=== PATIENT | female | born 1995 | race Caucasian/White ===

== ENCOUNTER 2017-12-19 19:02 | Emergency (ER) | payer OTHER, SELFPAY ==
[2017-12-19 19:03] VITALS: BP 121/77; PULSE 103; RESP 18; TEMP 36.8; O2SAT 99; BMI 22.7
--- NOTE | 2017-12-19 19:55 | RAD_ITS ---
STUDY: X-RAY - RIGHT WRIST REASON FOR EXAM: Female, 22 years old. Right wrist and elbow pain after fall. TECHNIQUE: 3 view(s) of the wrist were obtained. COMPARISON: None. FINDINGS: Normal visualized distal radius and ulna. Normal radiocarpal articulation. Normal distal radioulnar articulation. Normal carpal bones. Normal carpal articulations. Normal carpometacarpal articulation of the thumb. Normal second through fifth carpometacarpal articulations. Normal visualized metacarpal bones. The soft tissue structures are unremarkable. RAD/Wrist min 3 Views IMPRESSION: No significant abnormality identified. Electronically Signed: Vickey Hartley MD at 20:47 EDT , Service support ,
--- NOTE | 2017-12-19 19:57 | RAD_ITS ---
STUDY: X-RAY - RIGHT ELBOW REASON FOR EXAM: Female, 22 years old. Right wrist and elbow pain after fall. TECHNIQUE: 30 view(s) of the elbow. COMPARISON: None. FINDINGS: There is a nondisplaced fracture of the radial head. There is a joint effusion. The soft tissue structures are unremarkable. RAD/Elbow min 3 Views IMPRESSION: Radial head fracture with joint effusion. Electronically Signed: Vickey Hartley MD at 20:48 EDT , Service support ,
--- NOTE | 2017-12-19 22:55 | ED.DEP ---
ED Disposition - Plan for ED Patient: Chief Complaint: Upper Extremity Injury Instructions: ED Fx Radial Head Prescriptions: Hydrocodone Bitart/Apap 5-325 [[place] 5MG-325MG] 1 tablet PO Q6H PRN PRN 3 Days #10 tablet PRN Reason: Pain Referrals: Care Physician,No Primary [Primary Care Provider] - Deepak Mayer MD [STAFF PHYSICIAN] -
--- NOTE | 2017-12-19 22:56 | DCINST.ED_ITS ---
ED Disposition - Plan for ED Patient: Chief Complaint: Upper Extremity Injury Instructions: ED Fx Radial Head Prescriptions: Hydrocodone Bitart/Apap 5-325 [[place] 5MG-325MG] 1 tablet PO Q6H PRN PRN 3 Days # 10 tablet PRN Reason: Pain Referrals: Care Physician,No Primary [Primary Care Provider] - Deepak Mayer MD [STAFF PHYSICIAN] -
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
[2017-12-19] MEDS: HYDROcodone Bitartrate/Apap 5/325 Tablet PO (23:03)
[2017-12-19 23:04] VITALS: RESP 14
== END 2017-12-19 23:05 | disposition home or self-care (01) ==
PROVIDERS: Emergency Provider Emergency Medicine
DX: S52.121A Displaced fracture of head of right radius, initial encounter for closed fracture (principal); V19.9XXA Pedal cyclist (driver) (passenger) injured in unspecified traffic accident, initial encounter; Y93.9 Activity, unspecified; Y92.9 Unspecified place or not applicable
CPT/HCPCS: 29125; 73080; 73110; 99283

== ENCOUNTER → 2018-06-17 15:00 | Outpatient (CLI) | payer OTHER, SELFPAY ==
[2018-06-17 16:40] LABS: Anion Gap 6 (5-15); BUN 11 mg/dL (7-18); BUN/Creat Ratio 13.9 RATIO (10-20); Calcium,Total 8.6 mg/dL (8.5-10.1); Chloride 108 mmol/L (98-107); Creatinine, Serum 0.79 mg/dL (0.55-1.02); EST Glomerular Filtration Rate 96 mL/min (>60); Est Glom Filt Rate - Afr Amer 116 mL/min (>60); Glucose 99 mg/dL (74-106); Sodium Level 145 mmol/L (136-145); Thyroid Stim Hormone (TSH) 0.93 uIU/mL (0.358-3.74)
== END ==
DX: Z79.899 Other long term (current) drug therapy (principal)
CPT/HCPCS: 36415; 80048; 84443

== ENCOUNTER → 2018-12-09 08:39 | Outpatient (CLI) | payer OTHER, SELFPAY ==
[2018-12-09 10:14] LABS: ALB/GLOB Ratio 1.1 RATIO (0.9-2.4); AST(SGOT) 20 U/L (15-37); Alanine Aminotransfer ALT/SGPT 24 U/L (13-56); Albumin, Serum 3.8 g/dL (3.2-5.0); Alkaline Phosphatase 75 U/L (45-117); Anion Gap 8 (5-15); BUN 9 mg/dL (7-18); BUN/Creat Ratio 10.8 RATIO (10-20); Calcium,Total 9.5 mg/dL (8.5-10.1); Chloride 108 mmol/L (98-107); Creatinine, Serum 0.83 mg/dL (0.55-1.02); EST Glomerular Filtration Rate 90 mL/min (>60); Est Glom Filt Rate - Afr Amer 109 mL/min (>60); Globulin 3.5 g/dL (2.2-4.2); Glucose 60 mg/dL (74-106); Potassium 4.2 mmol/L (3.5-5.1); Protein, Total 7.3 g/dL (6.4-8.2); Sodium Level 144 mmol/L (136-145); Thyroid Stim Hormone (TSH) 1.67 uIU/mL (0.358-3.74)
== END ==
DX: Z79.899 Other long term (current) drug therapy (principal)
CPT/HCPCS: 36415; 80053; 80178; 84443

== ENCOUNTER 2019-05-23 15:30 | Emergency (ER) | payer OTHER, SELFPAY ==
[2019-05-23 15:34] VITALS: BP 132/76; PULSE 99; RESP 15; TEMP 36.4; O2SAT 99; BMI 26.3
--- NOTE | 2019-05-23 15:57 | US_ITS ---
STUDY: ULTRASOUND OF THE FEMALE PELVIS - LIMITED REASON FOR EXAM: Female, 23 years old NEW IUD WITH SPOTTING AND CRAMPING S/P TECHNIQUE: Transvaginal TECHNICAL QUALITY: Adequate. COMPARISON: None. FINDINGS: The uterus is anteverted and is in a midline position. The uterus measures 6.9 x 5.1 x 3.0 cm. Normal uterine cervix. The endometrium measures 3 mm in thickness, and is hyperechoic. There is no demonstrated endometrial mass. There is no demonstrated myometrial mass. An IUD is present appearing in adequate position The right ovary measures 2.9 x 2.5 x 1.7 cm. There is no right ovarian cyst or ovarian mass. There is no visualized right adnexal mass or complex lesion. There is normal arterial and normal venous vascularity. The left ovary measures 2.6 x 1.8 x 1.5 cm. There is no left ovarian cyst or ovarian mass. There is no visualized left adnexal mass or complex lesion. There is normal arterial and normal venous vascularity. There is no fluid in the cul-de-sac. A small amount of debris is seen in the urinary bladder. US/Transvaginal Non- IMPRESSION: IUD seen in the uterus appearing in adequate position. A small amount of debris is incidentally noted in the urinary bladder. There is no evidence of fluid in the cul-de-sac. The ovaries appear normal. Electronically Signed: Jesus Page MD at 17:31 EST , Service support ,
--- NOTE | 2019-05-23 15:59 | ED.VIS.GEN ---
History of Present Illness Chief Complaint: Female C/O Informant: Patient Onset: Days Current Severity: Mild Maximum Severity: Moderate Narrative: Patient presents with concerns for vaginal bleeding and cramping. She had an 3 weeks ago when she was approximately 7 weeks along. She had an IUD placed 1 week after her procedure. Patient states she had vaginal bleeding for about a week and a half after her procedure. This past weekend she started bleeding again. Bleeding stopped yesterday but cramping got worse. - Past Medical History (1) Bipolar disorder Status: Chronic Past Medical History - Allergies and Home Meds Allergies/Adverse Reactions: Allergies No Known Allergies Allergy (Verified 05/23/19 15:31) Primary Care Physician: Care Physician,No Primary [Primary Care Provider] - Prior records reviewed: Yes Review of Systems General: Denies: Chills, Fever Eyes: Denies: Visual changes - bilaterally ENT: Denies: Bilateral ear pain Cardiovascular: Denies: Chest pain Respiratory: Denies: Dyspnea, Cough Gastrointestinal: Reports: Abdominal pain. Denies: Nausea, Vomiting, Diarrhea Genitourinary: Denies: Dysuria Musculoskeletal: Reports: Extremity Pain Skin: Denies: Rash Neurological: Denies: Headache Allergy: Denies: Uticaria Physical Exam Vital Signs/Narrative: Vital Signs Temp Pulse Resp BP Pulse Ox 05/23/19 15:34 97.5 F L 99 15 132/76 H 99 Inital Vital Signs reviewed: Yes General: Well nourished, Well developed Head: Normocephalic ENT: Moist mucous membranes Neck: Supple Cardiovascular: Regular rate, Regular rhythm Respiratory: No distress, CTA bilaterally Abdomen: Soft, Nontender, Normal bowel sounds Extremities: Nontender Skin: Normal color Neurological: Alert, Oriented x3 Psychological: Normal affect Diagnostic/Tx/Re-eval Impressions Transvaginal US 05/23/19 15:57 IMPRESSION: IUD seen in the uterus appearing in adequate position. A small amount of debris is incidentally noted in the urinary bladder. There is no evidence of fluid in the cul-de-sac. The ovaries appear normal. Electronically Signed: Jesus Page MD at 17:31 EST , Service support , 05/23/19 15:57 Transvaginal Non- [US] Stat Laboratory Results 05/23/19 05/23/19 05/23/19 16:40 16:40 17:22 WBC 7.4 RBC 4.80 Hgb 13.3 Hct 40.7 MCV 84.8 MCH 27.7 MCHC 32.7 RDW Std Deviation 41.1 RDW Coeff of Joey 13.2 Plt Count 286 MPV 8.9 Immature Gran % (Auto) 0.100 Neut % (Auto) 65.6 Lymph % (Auto) 24.8 Roberts % (Auto) 8.8 Eos % (Auto) 0.4 Baso % (Auto) 0.3 Absolute Neuts (auto) 4.9 Absolute Lymphs (auto) 1.83 Nucleated RBC % 0 HCG, Quant 4 Urine Color Yellow Urine Clarity Cloudy Urine pH 7.0 Ur Specific [place] 1.010 Urine Protein Negative Urine Glucose (UA) Normal Urine Ketones Negative Urine Occult Blood 10 H Urine Nitrite Negative Urine Bilirubin Negative Urine Urobilinogen Normal Ur Leukocyte Esterase Negative Urine RBC 0-5 SEEN Urine WBC 0-5 SEEN Ur Squamous Epith Cells 0-5 SEEN Urine Bacteria RARE Urine Mucus 1+ - Medical Decision Making Patient was given Toradol IV. Test results are discussed with her. At this time I do not see any acute abnormalities from her recent . She be referred to Dr. Channing Nash, on-call for no doc for follow-up as needed. ED Disposition - Plan for ED Patient: Disposition: Home or Assisted Living Diagnosis: Pelvic pain Instructions: PELVIC PAIN, Unknown Cause Referrals: Preeti Win MD [STAFF PHYSICIAN] - As Needed
[2019-05-23 16:50] LABS: Absolute Lymphocyte Count 1.83 X10^3/uL (0.83-4.51); Absolute Neutrophil Count 4.9 X10^3/uL (2.0-7.7); Basophil# 0.02 X10^3/uL; Basophil% 0.3 % (0-1); Eosinophil# 0.03 X10^3/uL; Eosinophils% 0.4 % (0-5); Hematocrit 40.7 % (37-47); Hemoglobin 13.3 g/dL (12.0-15.0); Lymphocyte # 1.83 X10^3/ul (4.0); Lymphocyte % 24.8 % (19-41); Mean Corp Hgb Conc 32.7 g/dL (32-36); Mean Corpuscular Hgb 27.7 pg (27.0-32.0); Mean Corpuscular Volume 84.8 fL (81-99); Mean Platelet Vol. 8.9 fl (6.2-12.0); Monocyte# 0.65 X10^3/uL; Monocyte% 8.8 % (0-10); NRBC Flagged by Analyzer 0 % (0-5); Neutrophil # 4.85 X10^3/uL (2.7-7.7); Neutrophil % 65.6 % (47-70); Platelet Count 286 K/mm3 (150-450); RBC Distribution Width CV 13.2 % (11.6-14.6); RBC Distribution Width SD 41.1 fl (35.1-43.9); White Blood Count 7.4 K/mm3 (4.4-11.0)
[2019-05-23] MEDS: 0.9% Normal Saline 1,000 ML 1000 ML IV (16:53)
[2019-05-23] MEDS: Ketorolac 30 MG/ML Syringe IV (16:54)
[2019-05-23 17:08] LABS: hCG Titer Quant., Serum 4 mIU/mL (1-3)
[2019-05-23 17:32] LABS: Color, Urine Yellow (Yellow); Glucose, Dipstick Normal (Normal); Ketone-Dipstick Negative (Negative); Leukocyte Esterase-Dipstick Negative /ul (Negative); Nitrite-Dipstick Negative (Negative); Occult Blood-Urine 10 /ul (Negative); Protein-Dipstick Negative (Negative); Urine Bilirubin Dipstick Negative (Negative); Urine Clarity Cloudy (Clear); Urine Urobilinogen Normal (Normal)
[2019-05-23 17:49] LABS: Mucous, Urine 1+ /hpf (<or=2+)
[2019-05-23 17:51] LABS: Bacteria RARE /hpf (None Seen); Red Blood Cells-Urine 0-5 SEEN /hpf (0-5); Squamous Epithelial Cells - UA 0-5 SEEN /hpf (5-10); White Blood Cells 0-5 SEEN /hpf (0-5)
== END 2019-05-23 18:15 | disposition home or self-care (01) ==
PROVIDERS: Emergency Provider Emergency Medicine
DX: R10.2 Pelvic and perineal pain (principal); F31.9 Bipolar disorder, unspecified; Z30.431 Encounter for routine checking of intrauterine contraceptive device; Z79.899 Other long term (current) drug therapy
CPT/HCPCS: 76830; 81001; 84702; 85025; 93976; 96361; 96374; 99283; J7030; A4216

== ENCOUNTER → 2019-08-18 11:49 | Outpatient (CLI) | payer OTHER, SELFPAY ==
[2019-08-18 12:46] LABS: Absolute Lymphocyte Count 1.46 X10^3/uL (0.83-4.51); Absolute Neutrophil Count 4.3 X10^3/uL (2.0-7.7); Basophil# 0.01 X10^3/uL; Basophil% 0.2 % (0-1); Eosinophil# 0.06 X10^3/uL; Eosinophils% 0.9 % (0-5); Hematocrit 42.5 % (37-47); Hemoglobin 13.6 g/dL (12.0-15.0); Lymphocyte # 1.46 X10^3/ul (4.0); Lymphocyte % 22.4 % (19-41); Mean Corpuscular Hgb 28.3 pg (27.0-32.0); Mean Corpuscular Volume 88.4 fL (81-99); Mean Platelet Vol. 8.9 fl (6.2-12.0); Monocyte# 0.63 X10^3/uL; Monocyte% 9.7 % (0-10); NRBC Flagged by Analyzer 0 % (0-5); Neutrophil # 4.33 X10^3/uL (2.7-7.7); Neutrophil % 66.3 % (47-70); Platelet Count 364 K/mm3 (150-450); RBC Distribution Width CV 12.4 % (11.6-14.6); RBC Distribution Width SD 40.5 fl (35.1-43.9); Red Blood Count 4.81 M/mm3 (4.2-5.4); White Blood Count 6.5 K/mm3 (4.4-11.0)
[2019-08-18 13:38] LABS: ALB/GLOB Ratio 1.1 RATIO (0.9-2.4); AST(SGOT) 14 U/L (15-37); Alanine Aminotransfer ALT/SGPT 15 U/L (13-56); Albumin, Serum 4.1 g/dL (3.2-5.0); Alkaline Phosphatase 88 U/L (45-117); Anion Gap 5 (5-15); BUN 9 mg/dL (7-18); BUN/Creat Ratio 11.9 RATIO (10-20); Calcium,Total 9.3 mg/dL (8.5-10.1); Chloride 106 mmol/L (98-107); Creatinine, Serum 0.76 mg/dL (0.55-1.02); EST Glomerular Filtration Rate 100 mL/min (>60); Est Glom Filt Rate - Afr Amer 121 mL/min (>60); Globulin 3.6 g/dL (2.2-4.2); Glucose 85 mg/dL (74-106); Potassium 4.3 mmol/L (3.5-5.1); Protein, Total 7.7 g/dL (6.4-8.2); Sodium Level 137 mmol/L (136-145); Thyroid Stim Hormone (TSH) 1.17 uIU/mL (0.358-3.74)
== END ==
PROVIDERS: Referring Provider Nurse Practitioner Family; Visit Provider Nurse Practitioner Family
DX: Z79.899 Other long term (current) drug therapy (principal)
CPT/HCPCS: 36415; 80053; 80178; 84443; 85025

== ENCOUNTER → 2020-02-14 10:35 | Outpatient (CLI) | payer SELFPAY ==
[2020-02-14 10:58] LABS: Absolute Lymphocyte Count 1.54 X10^3/uL (0.83-4.51); Absolute Neutrophil Count 3.6 X10^3/uL (2.0-7.7); Basophil# 0.01 X10^3/uL; Basophil% 0.2 % (0-1); Eosinophil# 0.07 X10^3/uL; Eosinophils% 1.3 % (0-5); Hemoglobin 12.1 g/dL (12.0-15.0); Lymphocyte # 1.54 X10^3/ul (4.0); Lymphocyte % 27.6 % (19-41); Mean Corpuscular Hgb 26.9 pg (27.0-32.0); Mean Corpuscular Volume 86.9 fL (81-99); Mean Platelet Vol. 8.6 fl (6.2-12.0); Monocyte# 0.39 X10^3/uL; NRBC Flagged by Analyzer 0 % (0-5); Neutrophil # 3.56 X10^3/uL (2.7-7.7); Neutrophil % 63.7 % (47-70); Platelet Count 321 K/mm3 (150-450); RBC Distribution Width CV 13.5 % (11.6-14.6); RBC Distribution Width SD 43.4 fl (35.1-43.9); Red Blood Count 4.49 M/mm3 (4.2-5.4); White Blood Count 5.6 K/mm3 (4.4-11.0)
[2020-02-14 11:18] LABS: ALB/GLOB Ratio 1.1 RATIO (0.9-2.4); AST(SGOT) 9 U/L (15-37); Alanine Aminotransfer ALT/SGPT 15 U/L (13-56); Albumin, Serum 3.9 g/dL (3.2-5.0); Alkaline Phosphatase 82 U/L (45-117); Anion Gap 5 (5-15); BUN 7 mg/dL (7-18); Chloride 107 mmol/L (98-107); EST Glomerular Filtration Rate 109 mL/min (>60); Est Glom Filt Rate - Afr Amer 132 mL/min (>60); Free T3 2.7 pg/mL (2.18-3.98); Globulin 3.5 g/dL (2.2-4.2); Glucose 80 mg/dL (74-106); Protein, Total 7.4 g/dL (6.4-8.2); Sodium Level 139 mmol/L (136-145); T4 Free Direct 0.98 ng/dL (0.76-1.46)
[2020-02-14 11:35] LABS: Vitamin D,25 Hydroxy 9.1 ng/mL
== END ==
DX: Z79.899 Other long term (current) drug therapy (principal)
CPT/HCPCS: 36415; 80053; 80178; 82306; 84439; 84443; 84481; 85025

== ENCOUNTER → 2020-04-12 | Outpatient (CLI) | payer SELFPAY ==
[2020-04-16 03:06] LABS: Chlamydia By Nucleic Acid AMP Negative (Negative)
[2020-04-16 09:42] LABS: Gonococcus By Nucleic Acid AMP Negative (Negative)
== END | disposition home or self-care (01) ==
LOC: LABSPEC 14:59
PROVIDERS: Visit Provider Student in an Organized Health Care Education/Training Program
DX: Z11.3 Encounter for screening for infections with a predominantly sexual mode of transmission (principal)
CPT/HCPCS: 87491; 87591

== ENCOUNTER 2021-04-21 13:20 | Outpatient (CLI) | payer OTHER, SELFPAY ==
[2021-04-21 13:48] LABS: Absolute Lymphocyte Count 1.79 X10^3/uL (0.83-4.51); Basophil# 0.03 X10^3/uL; Basophil% 0.4 % (0-1); Eosinophil# 0.11 X10^3/uL; Eosinophils% 1.3 % (0-5); Hematocrit 42.3 % (37-47); Hemoglobin 13.6 g/dL (12.0-15.0); Lymphocyte # 1.79 X10^3/ul (0.83-4.51); Mean Corp Hgb Conc 32.2 g/dL (32-36); Mean Corpuscular Hgb 28.1 pg (27.0-32.0); Mean Corpuscular Volume 87.4 fL (81-99); Mean Platelet Vol. 8.3 fl (6.2-12.0); Monocyte# 0.57 X10^3/uL; Monocyte% 6.7 % (0-10); NRBC Flagged by Analyzer 0 % (0-5); Neutrophil # 5.99 X10^3/uL (2.7-7.7); Neutrophil % 70.2 % (47-70); Platelet Count 359 K/mm3 (150-450); RBC Distribution Width SD 41.2 fl (35.1-43.9); Red Blood Count 4.84 M/mm3 (4.2-5.4); White Blood Count 8.5 K/mm3 (4.4-11.0)
[2021-04-21 14:10] LABS: ALB/GLOB Ratio 1.2 RATIO (0.9-2.4); AST(SGOT) 14 U/L (15-37); Alanine Aminotransfer ALT/SGPT 18 U/L (13-56); Albumin, Serum 4.1 g/dL (3.2-5.0); Alkaline Phosphatase 81 U/L (45-117); Anion Gap 7 (5-15); BUN 11 mg/dL (7-18); BUN/Creat Ratio 14.9 RATIO (10-20); Calcium,Total 8.9 mg/dL (8.5-10.1); Chloride 105 mmol/L (98-107); Creatinine, Serum 0.74 mg/dL (0.55-1.02); EST Glomerular Filtration Rate 101 mL/min (>60); Est Glom Filt Rate - Afr Amer 122 mL/min (>60); Globulin 3.3 g/dL (2.2-4.2); Glucose 83 mg/dL (74-106); Potassium 3.6 mmol/L (3.5-5.1); Protein, Total 7.4 g/dL (6.4-8.2); Sodium Level 139 mmol/L (136-145)
== END 2021-04-21 23:59 | disposition home or self-care (01) ==
PROVIDERS: Referring Provider Nurse Practitioner Family; Visit Provider Nurse Practitioner Family
DX: Z79.899 Other long term (current) drug therapy (principal)
CPT/HCPCS: 36415; 80053; 80178; 84443; 85025

== ENCOUNTER 2021-06-27 00:46 | Emergency (ER) | payer OTHER, SELFPAY ==
[2021-06-27 00:47] VITALS: BP 155/71; PULSE 131; RESP 18; TEMP 37; O2SAT 99; BMI 28.8
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
[2021-06-27] MEDS: Lidocaine 2% /Epi 1:100 (20ml) 20 ML VIAL INFILT (02:05)
== END 2021-06-27 02:11 | disposition home or self-care (01) ==
PROVIDERS: Emergency Provider Emergency Medicine; Visit Provider Emergency Medicine
DX: S71.112A Laceration without foreign body, left thigh, initial encounter (principal); F41.9 Anxiety disorder, unspecified; F32.A Depression, unspecified; Z79.899 Other long term (current) drug therapy; W26.0XXA Contact with knife, initial encounter
CPT/HCPCS: 12002; 99283

== ENCOUNTER → 2022-01-09 | Outpatient (CLI) | payer OTHER, SELFPAY ==
[2022-01-09 09:25] LABS: Absolute Lymphocyte Count 1.88 X10^3/uL (0.83-4.51); Absolute Neutrophil Count 3.9 X10^3/uL (2.0-7.7); Basophil# 0.02 X10^3/uL; Basophil% 0.3 % (0-1); Eosinophil# 0.17 X10^3/uL; Eosinophils% 2.6 % (0-5); Hematocrit 45.2 % (37-47); Hemoglobin 14.6 g/dL (12.0-15.0); Lymphocyte # 1.88 X10^3/ul (0.83-4.51); Lymphocyte % 28.9 % (19-41); Mean Corp Hgb Conc 32.3 g/dL (32-36); Mean Corpuscular Hgb 27.2 pg (27.0-32.0); Mean Corpuscular Volume 84.3 fL (81-99); Mean Platelet Vol. 8.8 fl (6.2-12.0); Monocyte# 0.52 X10^3/uL; NRBC Flagged by Analyzer 0 % (0-5); Neutrophil % 59.9 % (47-70); Platelet Count 326 K/mm3 (150-450); RBC Distribution Width SD 43.3 fl (35.1-43.9); Red Blood Count 5.36 M/mm3 (4.2-5.4); White Blood Count 6.5 K/mm3 (4.4-11.0)
[2022-01-09 10:06] LABS: ALB/GLOB Ratio 1.2 RATIO (0.9-2.4); AST(SGOT) 11 U/L (15-37); Alanine Aminotransfer ALT/SGPT 14 U/L (13-56); Albumin, Serum 3.8 g/dL (3.2-5.0); Alkaline Phosphatase 95 U/L (45-117); Anion Gap 8 (5-15); BUN 8 mg/dL (7-18); BUN/Creat Ratio 8.6 RATIO (10-20); Calcium,Total 9.2 mg/dL (8.5-10.1); Chloride 107 mmol/L (98-107); Creatinine, Serum 0.93 mg/dL (0.55-1.02); EST Glomerular Filtration Rate 78 mL/min (>60); Est Glom Filt Rate - Afr Amer 94 mL/min (>60); Globulin 3.2 g/dL (2.2-4.2); Glucose 122 mg/dL (74-106); Potassium 4.3 mmol/L (3.5-5.1); Sodium Level 139 mmol/L (136-145); Thyroid Stim Hormone (TSH) 1.64 uIU/mL (0.358-3.74)
== END | disposition home or self-care (01) ==
LOC: LAB 09:10
PROVIDERS: Visit Provider Nurse Practitioner Family
DX: F19.10 Other psychoactive substance abuse, uncomplicated (principal); R53.83 Other fatigue; Z79.899 Other long term (current) drug therapy
CPT/HCPCS: 36415; 80053; 80178; 84443; 85025

== ENCOUNTER 2022-02-23 11:44 | Emergency (ER) | payer OTHER, SELFPAY ==
[2022-02-23 11:45] VITALS: BP 122/76; PULSE 111; RESP 18; TEMP 36.8; O2SAT 98; BMI 28.7
--- NOTE | 2022-02-23 12:09 | US_ITS ---
STUDY: ULTRASOUND OF THE FEMALE PELVIS - COMPLETE REASON FOR EXAM: Female, 26 years old. Pelvic pain, IUD LMP: Unknown. TECHNIQUE: Transvaginal TECHNICAL QUALITY: Adequate. COMPARISON: None. FINDINGS: The uterus is anteverted and is in a midline position. The uterus measures 6.8 cm x 3.3 cm x 5 cm. Normal uterine cervix. The endometrium measures 5 mm in thickness, and is hyperechoic. There is no demonstrated endometrial mass. There is no demonstrated myometrial mass. I.U.D. - The patient does have an I.U.D.. The right ovary is visualized. The right ovary measures 4.3 cm x 3 cm x 2.2 cm. There is a 2.5 cm x 2.1 cm x 1.6 cm cyst. There is no visualized right adnexal mass or complex lesion. There is normal arterial and normal venous vascularity. The left ovary is visualized. The left ovary measures 2.4 cm x 1.4 cm x 1.5 cm. There is no left ovarian cyst or ovarian mass. There is no visualized left adnexal mass or complex lesion. There is normal arterial and normal venous vascularity. There is no fluid in the cul-de-sac. US/Transvaginal Non- IMPRESSION: IUD is seen within the endometrium. 2.5 cm x 2.1 cm x 1.6 cm left ovarian cyst. Electronically Signed: Lanre Carrillo MD at 13:37 EST ,
--- NOTE | 2022-02-23 12:14 | EDS_ITS ---
HPI HPI - Female History of Present Illness Chief Complaint: Female C/O Informant: patient Narrative Narrative: Patient presents after an episode of lower pelvic pain. She states she has been having these intermittently for 2 or so years. Last time she saw her OB physician, she was told the next time she gets this pain she comes immediately to the emergency department. She has had a bowels before. She has had ultrasounds. They have never found a cause of these. She started with pain last night about 11 PM and lasted to almost 4 AM. She is not having pain now. She states when she gets this lower pelvic pain she also gets diarrhea without blood. This is typical for her. She denies any known history of lactose intolerance but did have a dairy type dessert before this. She never had nausea vomiting. No fevers. No abdominal surgeries. She is on IUD that she has had for a year and a half. They have told her that the IUD is not the cause of this. She does not feel like it is displaced. She has no bleeding. Her last menstrual cycle was back in July. She has no discharge. No urinary symptoms. Nothing consistently initiates or improves the symptoms. [facility] Medical History Anxiety Depression Home Medications hydrocodone-acetaminophen 5-325mg 5mg-325mg 1 tab PO Q6H PRN PRN Pain 3 days ##10 12/19/17 [Rx Last Taken Unknown] lamotrigine 200 mg tablet 200 mg PO DAILY 05/23/19 [History Last Taken Unknown] lithium carbonate 450 mg tablet,extended release 450 mg PO BID 05/23/19 [History Last Taken Unknown] oxcarbazepine 300 mg tablet 300 mg PO BID 05/23/19 [History Last Taken Unknown] alprazolam 0.5 mg tablet (Xanax) 0.5 mg PO DAILY PRN Anxiety 06/27/21 [History Last Taken Unknown] Allergy/AdvReac Type Severity Reaction Status Date / Time No Known Allergies Allergy Verified 02/23/22 11:47 Social History Smoking Status: Current every day smoker tobacco type: cigarettes and e- cigarettes ROS ROS ED Constitutional Constitutional ED: Denies chills or fever(s) ENT ENT ED: Denies rhinorrhea or sore throat Cardiovascular Cardiovascular: Denies chest pain or palpitations Respiratory/Chest Respiratory/Chest: Denies cough or dyspnea Gastrointestinal Gastrointestinal: Reports abdominal pain and diarrhea; Denies constipation, melena, nausea or vomiting Genitourinary Genitourinary ED: Reports other Details: See history of present illness peer ; Denies dysuria, hematuria or urinary frequency Musculoskeletal Musculoskeletal: Denies arthralgias or myalgias Integumentary Denies rash Neurologic Neurologic: Denies paresthesias or weakness Psychiatric Psychiatric: Reports anxiety and depression Endocrine Endocrinology: Denies polydipsia or polyuria Hematologic/Lymphatic Hematologic/Lymphatic: Denies lymphadenopathy EXAM Physical Exam Const Vital Signs: 02/23/22 11:45 Temperature 98.3 F Temperature Source Temporal Pulse Rate 111 H Respiratory Rate 18 Blood Pressure 122/76 H Blood Pressure Mean 91 Pulse Ox 98 Oxygen Delivery Method Room Air Positive well nourished and well developed General Appearance ED: well developed and NAD HEENT Reports moist mucous membranes Eyes EOMs intact bilaterally Neck no JVD Resp normal respiratory effort and clear to auscultation bilaterally Cardio regular rate and regular rhythm GI normal to inspection, nondistended, normoactive bowel sounds, soft to palpation, non-tender and non-distended Auscultation: normoactive bowel sounds Back/Spine no CVA tenderness Extremity normal to inspection General Extremety ED: Negative for edema or tenderness General Extremity: Negative for edema Neuro oriented x3 Psych mental status grossly normal Skin no rashes or lesions noted MDM MDM MDM Narrative Medical decision making narrative: Ultrasound showed IUD in place. She did have a small left ovarian cyst. However, I do not think this is likely the source of her recurrent pain. She is not having pain now. She has had symptoms for a year or 2. I do not think this represents torsion. Urine showed increased white cells but there was also 5-10 squamous epithelial cells. Only 1+ bacteria. Patient is not having any UTI symptoms. I will send this for culture but we mutually agreed to hold off on antibiotic treatment. We will have the patient follow-up with [facility] TECHNICIAN. She currently does not have a window shade estimator so we will give her a referral. Lab Data Attestation: I reviewed the patient's lab results. Labs: Laboratory Results - last 24 hr 02/23/22 13:52 Urine Color Straw Urine Clarity Sl. Cloudy Urine pH 8.0 Ur Specific [place] 1.010 Urine Protein Negative Urine Glucose (UA) Normal Urine Ketones Negative Urine Occult Blood Negative Urine Nitrite Negative Urine Bilirubin Negative Urine Urobilinogen Normal Ur Leukocyte Esterase 500 H Urine RBC 0 SEEN Urine WBC 25-50 SEEN Ur Squamous Epith Cells 5-10 SEEN Urine Bacteria 1+ Urine Mucus 0 SEEN Urine Test Negative Radiography Diagnostic Testing: Clinical Impression(s) from Imaging Studies Transvaginal US 02/23/22 12:09 IMPRESSION: IUD is seen within the endometrium. 2.5 cm x 2.1 cm x 1.6 cm left ovarian cyst. Electronically Signed: Lanre Carrillo MD at 13:37 EST , Discharge Plan Triage Chief Complaint: Female C/O ED Provider: Serafin Purdy Dx/Rx/DC Orders Clinical Impression: Pelvic pain Instructions: ED Pelvic Pain, Unknown Cause Prescriptions: No Action hydrocodone-acetaminophen 1 TABLET tablet 1 tab PO Q6H PRN PRN (Reason: Pain) 3 Days Qty: 10 0RF lamotrigine 200 MG tablet 200 mg PO DAILY oxcarbazepine 300 MG tablet 300 mg PO BID lithium carbonate 450 MG tablet extended release 450 mg PO BID alprazolam [Xanax] 0.5 mg Tablet 0.5 mg PO DAILY PRN (Reason: Anxiety) Primary Care Provider: Care Physician,No Primary Referrals: Kayli Winslow MD [Med Staff - Active Staff] - 3-5 Days Care Physician,No Primary [Primary Care Provider] - Disposition Disposition: Home, Self Care
--- NOTE | 2022-02-23 13:51 | CM.ED ---
SW Note Referral Source: Case Find Referral Reason: No Primary Care Physician (PCP) SW reviewed chart and noted that patient has no PCP. SW provided patient with list of [facility] and [facility] Physician List for reference. No other issues or concerns voiced at this time. SW remains available for any additional needs. Plan: Provided patient with PCP information Cristy DELUNA
[2022-02-23 13:58] LABS: Mucous, Urine 0 SEEN /hpf (<or=2+); Red Blood Cells-Urine 0 SEEN /hpf (0-5)
[2022-02-23 14:01] LABS: Color, Urine Straw (Yellow); Glucose, Dipstick Normal (Normal); Ketone-Dipstick Negative (Negative); Leukocyte Esterase-Dipstick 500 /ul (Negative); Nitrite-Dipstick Negative (Negative); Occult Blood-Urine Negative /ul (Negative); Protein-Dipstick Negative (Negative); Urine Bilirubin Dipstick Negative (Negative); Urine Clarity Sl. Cloudy (Clear); Urine Urobilinogen Normal (Normal)
[2022-02-23 14:09] LABS: Bacteria 1+ /hpf (None Seen); Internal QC Validated? YES +Cl - CLEAR BKGD; Pregnancy, Urine Negative Negative; Squamous Epithelial Cells - UA 5-10 SEEN /hpf (5-10); White Blood Cells 25-50 SEEN /hpf (0-5)
[2022-02-23 15:13] VITALS: BP 118/72; PULSE 68; RESP 17; O2SAT 98
== END 2022-02-23 15:13 | disposition home or self-care (01) ==
PROVIDERS: Emergency Provider Emergency Medicine; Visit Provider Emergency Medicine
DX: R10.2 Pelvic and perineal pain (principal); F17.290 Nicotine dependence, other tobacco product, uncomplicated
CPT/HCPCS: 76830; 81001; 81025; 93976; 99282

== ENCOUNTER 2022-06-03 09:40 | Emergency (ER) | payer OTHER, SELFPAY ==
[2022-06-03 09:43] VITALS: BP 124/76; PULSE 110; RESP 18; TEMP 37.3; O2SAT 98
[2022-06-03 09:49] VITALS: BMI 28.9
--- NOTE | 2022-06-03 09:56 | ED.RN ---
[facility] SAID TO CALL IF SW NEEDS ANY MORE INFO
[2022-06-03 10:04] VITALS: BP 120/50; PULSE 103; RESP 16; TEMP 36.8; O2SAT 97
--- NOTE | 2022-06-03 10:05 | ED.RN ---
Patient identifies as Jai. Uses the pronouns him/he.
--- NOTE | 2022-06-03 10:33 | EX.ED.VIS.PS ---
HPI HPI - Psych History of Present Illness Chief Complaint: Mental Health Detail of Chief Complaint: Depression with suicidal ideation. Informant: patient Onset/Context/Timing Onset: Days Context: Gradual Onset Timing: Continuous Current Severity: Mild Maximum Severity: Mild Associated Symptoms Associated Symptoms - Psych: Positive for Depressed, Change in sleeping and Suicidal Thoughts; Negative for Threatening, Confusion, Paranoia, Visual Hallucinations or Auditory Hallucinations Specific plan (suicidal thought): No specific plan. Narrative Narrative: 26-year-old female history of depression anxiety on lithium and Xanax. Sees a counseling center. States that she has been depressed for some time. She lives alone. Her boyfriend lives in [facility]. States that she has had more depression recently no specific cause. She has had suicidal thoughts but has not acted on them. She has used cutting in the past to relieve stress and has made multiple lacerations on left forearm but none recently. She denies any prior overdose or attempted hanging's. She does not have a specific plan at this time. Prior similar symptoms: Yes Recent Illness/Hospitalization: No PFSH PFSH Medical History Anxiety Depression Home Medications hydrocodone-acetaminophen 5-325mg 5mg-325mg 1 tab PO Q6H PRN PRN Pain 3 days ##10 12/19/17 [Rx Last Taken Unknown] lamotrigine 200 mg tablet 200 mg PO DAILY 05/23/19 [History Last Taken Unknown] lithium carbonate 450 mg tablet,extended release 450 mg PO BID 05/23/19 [History Last Taken Unknown] oxcarbazepine 300 mg tablet 300 mg PO BID 05/23/19 [History Last Taken Unknown] alprazolam 0.5 mg tablet (Xanax) 0.5 mg PO DAILY PRN Anxiety 06/27/21 [History Last Taken Unknown] Allergy/AdvReac Type Severity Reaction Status Date / Time No Known Allergies Allergy Verified 06/03/22 09:45 Social History Smoking Status: Current every day smoker tobacco type: cigarettes and e-cigarettes ROS ROS ED ROS Narrative Denies recent illness. Review of Systems ROS Unobtainable: Denies due to encephalopathy Constitutional Constitutional ED: Denies fever(s) Eyes Eyes: Denies blurry vision ENT ENT ED: Denies ear pain Cardiovascular Cardiovascular: Denies chest pain Respiratory/Chest Respiratory/Chest: Denies cough or dyspnea Gastrointestinal Gastrointestinal: Denies abdominal pain Genitourinary Genitourinary ED: Denies dysuria or hematuria Musculoskeletal Musculoskeletal: Denies arthralgias or back pain Integumentary Denies abscess or Abrasions Neurologic Neurologic: Denies headache(s) Psychiatric Psychiatric: Denies anxiety or depression Endocrine Endocrinology: Denies polydipsia Hematologic/Lymphatic Hematologic/Lymphatic: Denies easy bleeding Allergic/Immunologic Allergic/Immunologic ED: Denies mouth swelling or tongue swelling EXAM Physical Exam Narrative Exam Narrative: Well-appearing 26-year-old female. Vital signs are stable afebrile. She does not look septic or toxic. No distress. She is cooperative. She makes eye contact. Myself manager social work and sitter are all in the room. H EENT exam unremarkable. Multiple piercings. Neck nontender no JVD. Tattoos. Lungs clear to auscultation bilaterally. Heart regular rhythm rate about 100 no murmur. Chest wall nontender. Abdomen soft nontender. Moving all 4 extremities. Neurovascular intact. Nontender no edema. She has old scars in the left forearm from cutting but no acute lacerations on either arm. Back nontender. Neurologically she is awake and alert with no focal motor deficits. She does make eye contact. She answers my questions. She is not combative. She is calm and collected. Const Vital Signs: 06/03/22 09:43 06/03/22 10:04 Temperature 99.2 F H 98.3 F Temperature Source Temporal Oral Pulse Rate 110 H 103 H Respiratory Rate 18 16 Blood Pressure 124/76 H 120/50 L Blood Pressure Mean 92 73 Pulse Ox 98 97 Oxygen Delivery Method Room Air Room Air Positive well nourished and well developed; Negative for obese, cachectic, contractures or unkempt General Appearance ED: well developed and NAD; Negative for unkempt, cachectic, contractures or pallor Nutritional Appearance: Negative for cachectic or obese HEENT Reports moist mucous membranes normocephalic and atraumatic; Negative for trauma Eyes PERRL and EOMs intact bilaterally General Eye ED: Negative for pale conjunctiva or scleral icterus Neck no lymphadenopathy, supple and no JVD General: Negative for tenderness Resp normal respiratory effort and clear to auscultation bilaterally Effort and Inspection: Negative for retractions Auscultation: Negative for rales, rhonchi or wheezes Cardio S1 normal heart sound, S2 normal heart sound and no murmurs Palpation: Negative for other Rate: regular rate Rhythm: regular rhythm GI non-tender, non-distended and no masses Inspection: Negative for abdominal distention Auscultation: normoactive bowel sounds Palpation: soft; Negative for tender, guarding or hepatomegaly Bladder / Kidney Exam: No other Back/Spine no CVA tenderness General Back: Negative for CVA tenderness Cervical Spine: Negative for cervical spine tenderness Thoracic Spine / Upper Back: Negative for thoracic spinal tenderness Lumbar Spine / Lower Back: Negative for lumbar spinal tenderness Coccyx: Negative for other Extremity normal to inspection General Extremety ED: Negative for edema or tenderness General Extremity: Negative for edema Neuro oriented x3, CN's II-XII intact bilaterally, no sensory deficits noted and deep tendon reflexes 2+ bilaterally Sensorium / Orientation: alert, oriented to person, oriented to place and oriented to time; Negative for orientation impaired, confused, lethargic or stuporous Motor Exam: strength 5/5 throughout Psych mental status grossly normal, thought process normal, cooperative, affect normal, speech normal, activity/motor behavior normal, denies hallucinations and denies homicidal ideation; Negative for denies suicidal ideation Appearance: grossly normal, appropriate and well kempt; Negative for unkempt, disheveled, bizarre or intubated Attitude: calm, engaged, No paranoid, No withdrawn, No bizarre, No uncooperative, No evasive, No guarded, No belligerent, No agitated, No aggressive and No hostile Activity / Motor Behavior: appropriate eye contact; Negative for psychomotor agitation, psychomotor slowing, fidgetting, hyperactive, disorganized, restless, mannerisms, stereotypies or avoids eye contact Speech: normal speech, No incoherent, No excessive, No minimal, No slow, No rapid and No soft Mood & Affect: depressed Thought Process: normal thought process Thought Content: suicidality Attention / Concentration: attention grossly intact Memory / Cognition: memory grossly intact Insight: insight good; Negative for fair, limited, poor or questionable Judgement: judgement good Skin Skin Narrative: Old scars on left forearm from cutting. Well-healed. General Skin Exam: Negative for jaundice or pallor Lesions: no lesions Rashes: no rashes Trauma: Negative for abrasion Wounds: Negative for amputation MDM MDM MDM Narrative Medical decision making narrative: 26-year-old female suffers from anxiety and depression. Currently seeing the counseling center. She has no medications. She has not left her home for around 11 days. She is having suicidal thoughts. Pt was also interviewed by our manager social work. She came up with several days of information I was unaware of. Patient identifies as a male that she calls herself for nodule. She considers bisexual. And she did admit to the manager social work she actually did have a plan. general foundry worker thinks that she does benefit from psychiatric admission I do agree with the additional information. She will undergo an ED mental health evaluation with the labs. She is medically cleared. And then they are working on placement. Lab Data Attestation: I reviewed the patient's lab results. Lab results narrative: CBC unremarkable white count 8.3 H&H 15.9 and 48. Serum test is negative. Electrolytes unremarkable with normal anion gap. Normal BUN and creatinine. Unremarkable glucose. Tox screen and alcohol are pending. Labs: Laboratory Results - last 24 hr 06/03/22 06/03/22 06/03/22 11:39 11:39 11:55 WBC 8.3 RBC 5.85 H Hgb 15.9 H Hct 48.6 H MCV 83.1 MCH 27.2 MCHC 32.7 RDW Std Deviation 41.2 RDW Coeff of Joey 13.6 Plt Count 347 MPV 8.6 Immature Gran % (Auto) 0.200 Neut % (Auto) 69.9 Lymph % (Auto) 22.2 [place] % (Auto) 6.8 Eos % (Auto) 0.7 Baso % (Auto) 0.2 Absolute Neuts (auto) 5.8 Absolute Lymphs (auto) 1.84 Nucleated RBC % 0 Sodium Potassium Chloride Carbon Dioxide Anion Gap BUN Creatinine Estim Creat Clear Calc Est GFR (MDRD) Af Amer Est GFR (MDRD) Non-Af BUN/Creatinine Ratio Glucose Calcium Serum , Qual NEGATIVE Urine Opiates Screen Cancelled Urine Methadone Screen Cancelled Ur Barbiturates Screen Cancelled Ur Phencyclidine Scrn Cancelled Ur Amphetamines Screen Cancelled MDMA (Ecstasy) Screen Cancelled U Benzodiazepines Scrn Cancelled Urine Cocaine Screen Cancelled U Cannabinoids Screen Cancelled Ur Drug Screen Comment Cancelled 06/03/22 06/03/22 11:55 12:16 WBC RBC Hgb Hct MCV MCH MCHC RDW Std Deviation RDW Coeff of Joey Plt Count MPV Immature Gran % (Auto) Neut % (Auto) Lymph % (Auto) [place] % (Auto) Eos % (Auto) Baso % (Auto) Absolute Neuts (auto) Absolute Lymphs (auto) Nucleated RBC % Sodium 139 Potassium 4.1 Chloride 106 Carbon Dioxide 25.0 Anion Gap 8 BUN 11 Creatinine 0.88 Estim Creat Clear Calc 94.21 Est GFR (MDRD) Af Amer 99 Est GFR (MDRD) Non-Af 82 BUN/Creatinine Ratio 12.5 Glucose 96 Calcium 9.3 Serum , Qual Urine Opiates Screen Urine Methadone Screen Ur Barbiturates Screen Ur Phencyclidine Scrn Ur Amphetamines Screen MDMA (Ecstasy) Screen U Benzodiazepines Scrn Urine Cocaine Screen U Cannabinoids Screen Ur Drug Screen Comment Discharge Plan Triage Chief Complaint: Mental Health ED Provider: Thanh Cho Dx/Rx/DC Orders Clinical Impression: Depression, Suicidal ideation, Gender identity uncertainty Prescriptions: No Action hydrocodone-acetaminophen 1 TABLET tablet 1 tab PO Q6H PRN PRN (Reason: Pain) 3 Days Qty: 10 0RF lamotrigine 200 MG tablet 200 mg PO DAILY oxcarbazepine 300 MG tablet 300 mg PO BID lithium carbonate 450 MG tablet extended release 450 mg PO BID alprazolam [Xanax] 0.5 mg Tablet 0.5 mg PO DAILY PRN (Reason: Anxiety) Primary Care Provider: Jean Desai Referrals: Jean Desai [Primary Care Provider] - Disposition Disposition: Psychiatric Hospital or Unit
--- NOTE | 2022-06-03 10:37 | ED.RN ---
Per Dr. Cho patient does not need a sitter at this time.
--- NOTE | 2022-06-03 11:21 | ED.RN ---
PER JESSICA FROM SOCIAL WORK. PT. DOES NEED A SITTER. MEDICAL TECHNICAL WRITER CURRENTLY SITTING WITH PATIENT.
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
[2022-06-03 12:03] LABS: Absolute Lymphocyte Count 1.84 X10^3/uL (0.83-4.51); Absolute Neutrophil Count 5.8 X10^3/uL (2.0-7.7); Basophil# 0.02 X10^3/uL; Basophil% 0.2 % (0-1); Eosinophil# 0.06 X10^3/uL; Eosinophils% 0.7 % (0-5); Hematocrit 48.6 % (37-47); Hemoglobin 15.9 g/dL (12.0-15.0); Lymphocyte # 1.84 X10^3/ul (0.83-4.51); Lymphocyte % 22.2 % (19-41); Mean Corp Hgb Conc 32.7 g/dL (32-36); Mean Corpuscular Hgb 27.2 pg (27.0-32.0); Mean Corpuscular Volume 83.1 fL (81-99); Mean Platelet Vol. 8.6 fl (6.2-12.0); Monocyte# 0.56 X10^3/uL; Monocyte% 6.8 % (0-10); NRBC Flagged by Analyzer 0 % (0-5); Neutrophil # 5.77 X10^3/uL (2.7-7.7); Neutrophil % 69.9 % (47-70); Platelet Count 347 K/mm3 (150-450); RBC Distribution Width CV 13.6 % (11.6-14.6); RBC Distribution Width SD 41.2 fl (35.1-43.9); Red Blood Count 5.85 M/mm3 (4.2-5.4); White Blood Count 8.3 K/mm3 (4.4-11.0)
[2022-06-03 12:15] LABS: Internal QC Validated? YES +Cl - CLEAR BKGD; Pregnancy, Serum, hCG Quali. NEGATIVE Negative
[2022-06-03 12:17] LABS: Anion Gap 8 (5-15); BUN 11 mg/dL (7-18); BUN/Creat Ratio 12.5 RATIO (10-20); Calcium,Total 9.3 mg/dL (8.5-10.1); Chloride 106 mmol/L (98-107); Creatinine, Serum 0.88 mg/dL (0.55-1.02); EST Glomerular Filtration Rate 82 mL/min (>60); Est Glom Filt Rate - Afr Amer 99 mL/min (>60); Estimated Creatinine Clearance 94.21 ml/min; Glucose 96 mg/dL (74-106); Potassium 4.1 mmol/L (3.5-5.1); Sodium Level 139 mmol/L (136-145)
[2022-06-03 12:42] LABS: Alcohol, Blood (Medical)-Serum < 3.0 mg/dL
[2022-06-03 12:48] LABS: Amphetamine Urine VISTA NEGATIVE (<1000 ng/mL); Barbiturate Urine VISTA NEGATIVE (< 200 ng/mL); Benzodiazepine Urine VISTA POSITIVE (< 200 ng/mL); Cocaine Urine VISTA NEGATIVE (< 300 ng/mL); Ecstacy Urine VISTA NEGATIVE (< 500 ng/mL); Methadone Urine VISTA NEGATIVE (< 300 ng/mL); PCP Urine VISTA NEGATIVE (< 25 ng/mL); THC Urine VISTA POSITIVE (< 50 ng/mL); Vista UDS pH Range 6
--- NOTE | 2022-06-03 14:48 | CM.ED ---
Social Work Note LEANNE contacted [facility] to inquire about bed availability; SW faxed referral as beds are available. Patient has been accepted to [facility]: MD [place], [place] [id number]. [place] slip to be faxed over. LEANNE met with MD and reviewed patient's acceptance to [facility]. SW assisted MD in completing pink slip and transportation form. RN and munitions handler supervisor informed of acceptance. stenographer secretary coordinated transportation with an ETA of 2 hrs. LEANNE met with patient and informed him of his acceptance to [facility] with transportation arriving in approximately two hours. Patient voiced understanding with no questions. SW remains available if needs arise. LEANNE faxed pink slip to [facility]. Plan: [facility] Mariaelena RAO, KYAW
--- NOTE | 2022-06-03 15:23 | ED.RN ---
report given to nurse at [facility]
[2022-06-03 15:50] VITALS: BP 107/59; PULSE 65; RESP 16; O2SAT 95
[2022-06-03 16:21] VITALS: BP 107/59; PULSE 65
--- NOTE | 2022-06-03 18:56 | NURSING ---
CALLED PHYSICIANS FOR AN UPDATED ETA- 1920P
[2022-06-03 19:32] VITALS: O2SAT 99
== END 2022-06-03 19:34 ==
PROVIDERS: Emergency Provider Emergency Medicine; Visit Provider Emergency Medicine
DX: F32.A Depression, unspecified (principal); R45.851 Suicidal ideations; F17.210 Nicotine dependence, cigarettes, uncomplicated; F41.9 Anxiety disorder, unspecified; F64.9 Gender identity disorder, unspecified; Z79.899 Other long term (current) drug therapy; F17.290 Nicotine dependence, other tobacco product, uncomplicated
CPT/HCPCS: 36415; 80048; 80307; 82077; 84703; 85025; 87811; 99283

== ENCOUNTER 2023-01-22 11:44 | Outpatient (CLI) | payer OTHER, SELFPAY ==
[2023-01-22 12:08] LABS: Hematocrit 48.6 % (37-47); Hemoglobin 15.7 g/dL (12.0-15.0); Mean Corp Hgb Conc 32.3 g/dL (32-36); Mean Corpuscular Hgb 25.5 pg (27.0-32.0); Mean Corpuscular Volume 78.9 fL (81-99); Mean Platelet Vol. 8.8 fl (6.2-12.0); Platelet Count 390 K/mm3 (150-450); RBC Distribution Width SD 44.6 fl (35.1-43.9); Red Blood Count 6.16 M/mm3 (4.2-5.4); White Blood Count 6.5 K/mm3 (4.4-11.0)
[2023-01-22 12:40] LABS: Vitamin D,25 Hydroxy 11.1 ng/mL
[2023-01-22 13:23] LABS: ALB/GLOB Ratio 1.1 RATIO (0.9-2.4); AST(SGOT) 11 U/L (15-37); Alanine Aminotransfer ALT/SGPT 19 U/L (13-56); Albumin, Serum 3.9 g/dL (3.2-5.0); Alkaline Phosphatase 88 U/L (45-117); Anion Gap 4 (5-15); BUN 9 mg/dL (7-18); BUN/Creat Ratio 11.1 RATIO (10-20); Calcium,Total 9.2 mg/dL (8.5-10.1); Chloride 110 mmol/L (98-107); Creatinine, Serum 0.81 mg/dL (0.55-1.02); EST Glomerular Filtration Rate 89 mL/min (>60); Est Glom Filt Rate - Afr Amer 108 mL/min (>60); Globulin 3.7 g/dL (2.2-4.2); Glucose 105 mg/dL (74-106); Protein, Total 7.6 g/dL (6.4-8.2); Sodium Level 135 mmol/L (136-145); Thyroid Stim Hormone (TSH) 0.96 uIU/mL (0.358-3.74)
== END 2023-01-22 23:59 | disposition home or self-care (01) ==
LOC: PAVLAB 11:47
PROVIDERS: PCP Family Medicine; Referring Provider Counselor Mental Health; Visit Provider Counselor Mental Health
DX: Z79.899 Other long term (current) drug therapy (principal); E55.9 Vitamin D deficiency, unspecified
CPT/HCPCS: 36415; 80053; 80178; 82306; 84443; 85027

== ENCOUNTER 2023-04-08 14:08 | Emergency (ER) | payer OTHER, SELFPAY ==
[2023-04-08 14:30] VITALS: BP 105/58; PULSE 86; RESP 16; TEMP 36.3; O2SAT 100; BMI 27.3
[2023-04-08 15:51] LABS: Amphetamine Urine VISTA NEGATIVE (<1000 ng/mL); Barbiturate Urine VISTA NEGATIVE (< 200 ng/mL); Benzodiazepine Urine VISTA POSITIVE (< 200 ng/mL); Cocaine Urine VISTA NEGATIVE (< 300 ng/mL); Ecstacy Urine VISTA NEGATIVE (< 500 ng/mL); Methadone Urine VISTA NEGATIVE (< 300 ng/mL); PCP Urine VISTA NEGATIVE (< 25 ng/mL); THC Urine VISTA POSITIVE (< 50 ng/mL); Vista UDS pH Range 5
--- NOTE | 2023-04-08 16:00 | ED.RN ---
pts belongings removed from the rroom per mental health protocol.
[2023-04-08 16:10] LABS: Absolute Lymphocyte Count 2.22 X10^3/uL (0.83-4.51); Absolute Neutrophil Count 5.9 X10^3/uL (2.0-7.7); Basophil# 0.03 X10^3/uL; Basophil% 0.3 % (0-1); Eosinophil# 0.06 X10^3/uL; Eosinophils% 0.7 % (0-5); Hematocrit 52.1 % (37-47); Hemoglobin 16.7 g/dL (12.0-15.0); Lymphocyte # 2.22 X10^3/ul (0.83-4.51); Lymphocyte % 25.3 % (19-41); Mean Corp Hgb Conc 32.1 g/dL (32-36); Mean Corpuscular Hgb 25.9 pg (27.0-32.0); Mean Corpuscular Volume 80.9 fL (81-99); Mean Platelet Vol. 8.4 fl (6.2-12.0); Monocyte# 0.57 X10^3/uL; Monocyte% 6.5 % (0-10); NRBC Flagged by Analyzer 0 % (0-5); Neutrophil # 5.88 X10^3/uL (2.7-7.7); Neutrophil % 66.9 % (47-70); Platelet Count 368 K/mm3 (150-450); RBC Distribution Width CV 14.6 % (11.6-14.6); Red Blood Count 6.44 M/mm3 (4.2-5.4); White Blood Count 8.8 K/mm3 (4.4-11.0)
[2023-04-08 16:26] LABS: Anion Gap 6 (5-15); BUN 13 mg/dL (7-18); Calcium,Total 9.7 mg/dL (8.5-10.1); Chloride 108 mmol/L (98-107); Creatinine, Serum 0.93 mg/dL (0.55-1.02); EST Glomerular Filtration Rate 77 mL/min (>60); Est Glom Filt Rate - Afr Amer 93 mL/min (>60); Estimated Creatinine Clearance 98.56 ml/min; Glucose 85 mg/dL (74-106); Potassium 3.9 mmol/L (3.5-5.1); Sodium Level 140 mmol/L (136-145)
--- OUTSIDE RECORDS SUMMARY | 2023-04-08 16:46 | XMS RPT_ITS | CCD ---
Author Name Unknown Address [address] [place] [address] Organization [facility] Care Team Providers Care Lav Crewman Name Role Phone Unavailable Primary Care Provider UnavailSunday Tavarez Unavailable [phone] Unavailable Unavailable Transgender Primary Care [facility], Other Primary Care Provider SUNDAY KEYS Attending Unavaila ble KEYS, SUNDAY TORRES Primary Care Unavaila ble KEYS, SUNDAY TORRES Referring Unavaila ble KEYS, SUNDAY TORRES Attending Unavaila ble KEYS, SUNDAY TORRES Primary Care Unavaila ble KEYS, SUNDAY TORRES Referring Unavaila ble KEYS, SUNDAY TORRES Attending Unavaila ble KESY, SUNDAY TORRES Primary Care Unavaila ble KEYSSUNDAY Garland Referring Unavaila ble Sunday Keys MD Primary Care Provider Unavailable Primary Care Provider UnavailSID Servin Attending Unavailable TRANSGENDER PRIMARY C[facility], OTHER Primary Care Unavailable SELF, SELF Referring Unavailable SID HUITRON Primary Care Unavailable SELF, SELF Referring Unavailable SID HUITRON Attending Unavailable SID HUITRON Attending Unavailable SID HUITRON Primary Care Unavailable SID HUITRON Referring Unavailable SID HUITRON Attending Unavailable TRANSGENDER PRIMARY CARE [facility], OTHER Primary Care Unavailable SELF, SELF Referring Unavailable Sunday Keys MD Primary Care Provider Sunday Keys MD Primary Care Provider [phone] SUNDAY KEYS Attending Unavailable SUNDAY KEYS Primary Care Unavailable SHRUTHI CASTREJON Attending Unavailable SUNDAY KEYS Primary Care Unavailable SNUDAY KEYS Primary Care Unavailable SUNDAY KEYS Primary Care Unavailable SUNDAY KEYS Primary Care Unavaila ble RECIO, NATALIE Referring Unavailable LONNIE GOTTLIEB Patrick Attending Unavailable RECIO, NATALIE Attending Unavailable RECIO, NATALIE Referring Unavailable SUNDAY KEYS Primary Care Unavaila ble CEM MOLINA, EMIR Attending Unavailable RECIO, NATALIE Referring Unavailable RECIO, NATALIE Referring Unavailable PRIEST MOLINA, EMIR Attending Unavailable RECIO, NATALIE Referring Unavailable PRIEST MOLINA, EMIR Attending Unavailable RECIO, NATALIE Referring Unavailable PRIEST MOLINA, EMIR Attending Unavailable RECIO, NATALIE Attending Unavailable Medications Current Medications Medication Drug Class(es) Dates Sig (Normalized) Sig (Original) ALPRAZolam 0.5 mg oral tablet (14 sources) Benzodiazepine Start: 10-06-2021 take 1 tablet by mouth three times daily as needed ALPRAZolam 0.5 MG Oral Tablet TAKE 1 TABLET 3 TIMES DAILY NEEDED. Quantity: 21 Refills: 0 Ordered: 28-Dec-2021 DO Start : 06-Oct-2021 Active Completed/Discontinued Medications Medication Drug Class(es) Dates Sig (Normalized) Sig (Original) adapalene 0.003 mg/mg topical gel (6 sources) Retinoid Start: 03-25-2022 Adapalene 0.3 % External Gel Quantity: 45 Refills: 0 Ordered: 25-Mar-2022 DO Start : 25-Mar-2022 Active Problems Active Problems Problem Classification Problem Date Documented Da te Episodic/Chronic Anxiety disorders (6 sources) Social phobia; Translations: [Social phobia, unspecified] Onset: 08-09-2013 07-09-2022 Chronic Immunizations and screening for infectious disease (1 source) Suspected disease caused by 2019-nCoV; Translations: [Suspected COVID-19 virus infection] Episodic Miscellaneous mental health disorders (11 sources) Gender dysphoria; Translations: [Gender identity disorder, unspecified] Onset: 05-14-2021 Chronic Mood disorders (12 sources) Bipolar I disorder; Translations: [Bipolar I disorder, most recent episode (or current) unspecified] Onset: 07-21-2013 05-14-2021 Chronic Other connective tissue disease (7 sources) Increased muscle tone; Translations: [Other specified disorders of muscle] Onset: 01-29-2023 01-29-2023 Episodic Other lower respiratory disease (2 sources) Dyspnea on exertion; Translations: [Other forms of dyspnea] 03-19-2023 Episodic Other lower respiratory disease (4 sources) Other forms of dyspnea; Translations: [Other forms of dyspnea] Onset: 03-19-2023 Episodic Other upper respiratory infections (3 sources) Sore throat symptom; Translations: [Acute pharyngitis, unspecified] Episodic Urinary tract infections (3 sources) Acute lower urinary tract infection; Translations: [Urinary tract infection, site not specified] Episodic Past or Other Problems Problem Classification Problem Date Documented Date Episodic/Chronic Abdominal pain (12 sources) Pain in pelvis; Translations: [Pelvic and perineal pain] Onset: 04-29-2022 07-09-2022 Episodic Contraceptive and procreative management (7 sources) IUD contraception; Translations: [Presence of (intrauterine) contraceptive device] Onset: 04-29-2022 07-09-2022 Episodic Mood disorders (1 source) Mood disorders Onset: 03-25-2022 03-25-2022 Other skin disorders (5 sources) Acne vulgaris; Translations: [Acne vulgaris] Onset: 03-25-2022 Episodic Other skin disorders (1 source) Acne; Translations: [Acne vulgaris] Onset: 03-25-2022 07-09-2022 Episodic Other skin disorders (1 source) Acne vulgaris; Translations: [Acne vulgaris] Onset: 06-26-2022 Episodic Results Test Name Value Interpretation Reference Range Facil ity Vital Signs Date Time Vital Sign Value Performing Clinician Faci lity 03-19-2023 13:26-0500 Body height 171.5 cm Sunday Keys MD Work Phone: [facility] 03-19-2023 [id number] Body mass index (BMI) [Ratio] 27.3 kg/m2 Sunday Keys MD Work Phone: [facility] 03-19-2023 [id number] Body weight 80.24 kg Sunday Keys MD Work Phone: [facility] 03-19-2023 13:26-0500 Diastolic blood pressure 84 mm[Hg] Sunday Keys MD Work Phone: [facility] 03-19-2023 13:26-0500 Heart rate 98 /min Sunday Keys MD Work Phone: [facility] 03-19-2023 13:26-0500 SaO2% (BldA) [Mass fraction] 98 % Sunday Keys MD Work Phone: [facility] 03-19-2023 13:26-0500 Systolic blood pressure 104 mm[Hg] Sunday Keys MD Work Phone: [facility] 03-18-2023 11:58-0500 Body temperature 98.01 [degF] Isis Oatesk SUPERVISOR [employer] Work Phone: [facility] 03-18-2023 11:58-0500 Body weight 81.28 kg Isis Cook SUPERVISOR [employer] Work Phone: [facility] 03-18-2023 11:58-0500 Diastolic blood pressure 82 mm[Hg] Isis Joey SUPERVISOR [employer]ER Work Phone: [facility] 03-18-2023 11:58-0500 Heart rate 91 /min Isis Oatesk SUPERVISOR [employer]LAND MEASURER Work Phone: [facility] 03-18-2023 11:58-0500 Respiratory rate 21 /min Isis Joey SUPERVISOR [employer]LAND MEAS[employer]ER Work Phone: [facility] 03-18-2023 11:58-0500 SaO2% (BldA) [Mass fraction] 98 % Isis Cook SUPERVISOR [employer]LAND MEASURER Work Phone: [facility] 03-18-2023 11:58-0500 Systolic blood pressure 118 mm[Hg] Isis Oatesk SUPERVISOR [employer]URER Work Phone: [facility] 07-09-2022 08:42-0400 Body height 171.5 cm Shruthi Castrejon SUPERVISOR [employer] Work Phone: [facility] 07-09-2022 08:42-0400 Body mass index (BMI) [Ratio] 28.33 kg/m2 Shruthi Castrejon SUPERVISOR [employer] Work Phone: [facility] 07-09-2022 08:42-0400 Body weight 83.28 kg Shruthi Castrejon SUPERVISOR [employer] Work Phone: [facility] 07-09-2022 08:42-0400 Diastolic blood pressure 70 mm[Hg] Shruthi Castrejon SUPERVISOR [employer] Work Phone: [facility] 07-09-2022 08:42-0400 Heart rate 79 /min Shruthi Castrejon SUPERVISOR [employer] Work Phone: [facility] 07-09-2022 08:42-0400 SaO2% (BldA) [Mass fraction] 97 % Shruthi Castrejon SUPERVISOR [employer] Work Phone: [facility] 07-09-2022 08:42-0400 Systolic blood pressure 122 mm[Hg] Shruthi Castrejon SUPERVISOR [employer] Work Phone: [facility] 04-03-2022 13:13-0500 Body height 171.45 cm Sunday Keys Work Phone: [facility] Work Phone: 04-03-2022 13:13-0500 Body mass index (BMI) [Ratio] 27.67 kg/m2 Sunday Keys Work Phone: [facility] Work Phone: 04-03-2022 13:13-0500 Body surface area Derived from formula 1.94 m2 Sunday Keys Work Phone: [facility] Work Phone: 04-03-2022 13:13-0500 Body weight 81.34 kg Sunday Keys Work Phone: [facility] Work Phone: 04-03-2022 13:13-0500 Diastolic blood pressure 80 mm[Hg] Sunday Keys Work Phone: [facility] Work Phone: 04-03-2022 13:13-0500 Heart rate 80 /min Sunday Keys Work Phone: [facility] Work Phone: 04-03-2022 13:13-0500 SaO2% (BldA) [Mass fraction] 98 % Sunday Keys Work Phone: [facility] Work Phone: 04-03-2022 13:13-0500 Systolic blood pressure 120 mm[Hg] Sunday Keys Work Phone: [facility] Work Phone: 03-25-2022 11:15-0500 Body mass index (BMI) [Ratio] 28.73 kg/m2 Sid Huitron MD Work Phone: [facility] 03-25-2022 11:15-0500 Body temperature 93.7 [degF] Sid Huitron MD Work Phone: [facility] 03-25-2022 11:15-0500 Body weight 80.74 kg Sid Huitron MD Work Phone: [facility] 03-25-2022 11:15-0500 Diastolic blood pressure 72 mm[Hg] Sid Huitron MD Work Phone: [facility] 03-25-2022 11:15-0500 Heart rate 102 /min Sid Huitron MD Work Phone: [facility] 03-25-2022 11:15-0500 Respiratory rate 18 /min Sid Huitron MD Work Phone: [facility] 03-25-2022 11:15-0500 Systolic blood pressure 108 mm[Hg] Sid Huitron MD Work Phone: [facility] 01-09-2022 13:57-0400 Body height 171.45 cm Sunday Guillermod Work Phone: [facility] Work Phone: 01-09-2022 13:57-0400 Body mass index (BMI) [Ratio] 27.06 kg/m2 Kylemasonhang Garland Keys Work Phone: [facility] Work Phone: 01-09-2022 13:57-0400 Body surface area Derived from formula 1.92 m2 Sunday Keys Work Phone: [facility] Work Phone: 01-09-2022 13:57-0400 Body weight 79.55 kg Sunday Garland Keys Work Phone: [facility] Work Phone: 01-09-2022 13:57-0400 Diastolic blood pressure 80 mm[Hg] Kylenishant Dada Keys Work Phone: [facility] Work Phone: 01-09-2022 13:57-0400 Heart rate 96 /min Sunday Dada Keys Work Phone: [facility] Work Phone: 01-09-2022 13:57-0400 SaO2% (BldA) [Mass fraction] 98 % Kylemasonhang Garland Keys Work Phone: [facility] Work Phone: 01-09-2022 13:57-0400 Systolic blood pressure 104 mm[Hg] Sunday Keys Work Phone: [facility] Work Phone: 08-13-2021 10:22-0400 Body temperature 97.2 [degF] Fabienne Gibbons APRN.CNP Work Phone: [facility] 08-13-2021 10:22-0400 Body weight 78.56 kg Fabienne Gibbons APRN.LAND MEASURER Work Phone: [facility] 08-13-2021 10:22-0400 Diastolic blood pressure 84 mm[Hg] Fabienne Gibbons APRN.LAND MEASURER Work Phone: [facility] 08-13-2021 10:22-0400 Heart rate 112 /min Fabienne Gibbons APRN.LAND MEASURER Work Phone: [facility] 08-13-2021 10:22-0400 Respiratory rate 20 /min Fabienne Gibbons APRN.LAND MEASURER Work Phone: [facility] 08-13-2021 10:22-0400 SaO2% (BldA) [Mass fraction] 100 % Fabienne Gibbons APRN.LAND MEASURER Work Phone: [facility] 08-13-2021 10:22-0400 Systolic blood pressure 122 mm[Hg] Fabienne Gibbons APRN.LAND MEASURER Work Phone: [facility] Encounters Encounter Date Encounter Type Care Provider Facility Start: 04-02-2023 End: 04-02-2023 ambulatory SUNDAY KEYS Facility:[facility] Start: 03-19-2023 End: 03-20-2023 ambulatory [facility] Start: 03-19-2023 End: 03-19-2023 Subsequent hospital visit by physician Scottie X-Ray 1 [facility] Procedures Date Procedure Procedure Detail Performing Clinician Start: 03-19-2023 CBC W Auto Different ial panel - Blood SUNDAY KEYS Start: 03-19-2023 Comprehensive metabo lic 2000 panel - Serum or Plasma SUNDAY KEYS Start: 03-19-2023 Radiologic exam ches t 2 views Sunday Keys MD Work Phone: Start: 03-18-2023 STREP A MOLECULAR (POC) Arthur Gilmore MD Work Phone: Start: 01-22-2023 Thyrotropin [Units/v olume] in Serum or Plasma Sunday Keys MD Work Phone: Start: 07-09-2022 aPTT in Blood by Coagulation assay SUNDAY KEYS Start: 07-09-2022 CBC panel - Blood by Automated count SUNDAY KEYS Start: 07-09-2022 Comprehensive metabo lic 2000 panel - Serum or Plasma SUNDAY KEYS Start: 07-09-2022 HUMAN CHORIONIC GONADOTROPIN, SERUM QUANTITATIVE SUNDAY KEYS Start: 07-09-2022 PROTIME-INR MANUELA KEYS Start: 07-09-2022 URINALYSIS MICROSCOP IC ONLY SUNDAY KEYS Start: 07-09-2022 URINALYSIS WITH REFL EX MICROSCOPIC SUNDAY KEYS Start: 07-09-2022 ECG 12-LEAD MANUELA KEYS Start: 07-09-2022 Ecg routine ecg w/le ast 12 lds w/i&r Shruthi Castrejon SUPERVISOR [employer] Work Phone: Start: 04-24-2022 transvaginal Natalie Recio SUPERVISOR [employer].CNM Work Phone: Start: 08-13-2021 STREP A MOLECULAR (POC) Fabienne Gibbons SUPERVISOR [employer]LAND MEASURER Work Phone: Dental implant procedure Chr sergerenayher Garland Lloyd Work Phone: Plan of Treatment Date Care Activity Detail Author Start: 09-28-2045 Zoster Vaccines (1 of 2) Zoste r Vaccines (1 of 2) [facility] Start: 01-23-2024 Thyroid stimulating hormone measurement TSH Level [facility] Start: 03-19-2023 End: 03-19-2024 CBC W Auto Differential panel - Blood [facility] Work Phone: Immunizations Immunization Date Immunization Notes Care Provider Fa cility 03-24-2022 Influenza, injectabl e, Madin Arleen Canine Kidney, preservative free, quadrivalent Sid Huitron MD Work Phone: [facility] 03-24-2022 influenza virus vaccine, unspecified formulation Emir Molina PT Work Phone: [facility] 07-24-2020 COVID-19 vaccine, mR SARA, Pfizer, 0.3 ML Sid Huitron MD Work Phone: [facility] 07-18-2020 COVID-19 vaccine, ag e 12+ yr (PFIZER-BIONTECH - PURPLE TOP) Fabienne Gibbons APRN.LAND MEASURER Work Phone: [facility] 06-26-2020 COVID-19 vaccine, ag e 12+ yr (PFIZER-BIONTECH - PURPLE TOP) Fabienne Gibbons APRN.LAND MEASURER Work Phone: [facility] 12-25-2010 human papilloma viru s vaccine, quadrivalent Christopher D Keys Work Phone: [facility] Work Phone: 12-25-2010 influenza virus vaccine, live, attenuated, for intranasal use Christopher D Keys Work Phone: [facility] Work Phone: 03-19-2010 human papilloma viru s vaccine, quadrivalent Christopher D Keys Work Phone: [facility] Work Phone: 02-14-2010 human papilloma viru s vaccine, quadrivalent Christopher D Keys Work Phone: [facility] Work Phone: 01-09-2010 influenza, seasonal, injectable Christopher D Keys Work Phone: [facility] Work Phone: 02-12-2009 novel [id number], preservative-free, injectable Christopher D Keys Work Phone: -[facility] Work Phone: 02-20-2008 influenza, seasonal, injectable Christopher D Keys Work Phone: [facility] Work Phone: 07-01-2007 meningococcal polysaccharide (groups A, C, Y and W-135) diphtheria toxoid conjugate vaccine (MCV4P) Sunday Keys Work Phone: -[facility] Work Phone: 07-01-2007 tetanus toxoid, redu renny diphtheria toxoid, and acellular pertussis vaccine, adsorbed Sunday Keys Work Phone: -[facility] Work Phone: 03-31-2007 varicella virus vaccine Chri antonella Keys Work Phone: [facility] Work Phone: 02-05-2006 influenza, seasonal, injectable Sunday Keys Work Phone: -[facility] Work Phone: 10-08-2000 measles, mumps and rubella virus vaccine Sunday Keys Work Phone: [facility] Work Phone: 12-17-1999 poliovirus vaccine, inactivated Sunday Keys Work Phone: [facility] Work Phone: 04-04-1997 diphtheria, tetanus toxoids and acellular pertussis vaccine Sid Huitron MD Work Phone: [facility] 04-04-1997 diphtheria, tetanus toxoids and acellular pertussis vaccine, unspecified formulation Sunday Dada Keys Work Phone: -[facility] Work Phone: 04-04-1997 haemophilus influenz ae type b vaccine, PRP-T conjugate Sunday Keys Work Phone: -[facility] Work Phone: 04-04-1997 poliovirus vaccine, inactivated Shruthi Wood SUPERVISOR [employer]ER Work Phone: [facility] Work Phone: 04-04-1997 trivalent poliovirus vaccine, live, oral Sunday Keys Work Phone: -[facility] Work Phone: 01-31-1997 measles, mumps and rubella virus vaccine Sunday Dada Keys Work Phone: -[facility] Work Phone: 10-19-1996 varicella virus vaccine Katie berman Dada Keys Work Phone: -[facility] Work Phone: 04-21-1996 diphtheria, tetanus toxoids and acellular pertussis vaccine Sid Huitron MD Work Phone: [facility] 04-21-1996 diphtheria, tetanus toxoids and acellular pertussis vaccine, unspecified formulation Sunday Keys Work Phone: -[facility] Work Phone: 04-21-1996 haemophilus influenz ae type b vaccine, PRP-T conjugate Sunday Keys Work Phone: -[facility] Work Phone: 04-21-1996 hepatitis B vaccine, pediatric or pediatric/adolescent dosage Sunday Keys [facility] Work Phone: 02-03-1996 diphtheria, tetanus toxoids and acellular pertussis vaccine Sid Huitron MD Work Phone: [facility] 02-03-1996 diphtheria, tetanus toxoids and acellular pertussis vaccine, unspecified formulation Sunday Keys Work Phone: -[facility] Work Phone: 02-03-1996 haemophilus influenz ae type b vaccine, PRP-T conjugate Sunday Keys Work Phone: -[facility] Work Phone: 02-03-1996 poliovirus vaccine, inactivated Shruthi Wood SUPERVISOR [employer]ER Work Phone: [facility] Work Phone: 02-03-1996 trivalent poliovirus vaccine, live, oral Christopher D Keys Work Phone: -[facility] Work Phone: 1995 diphtheria, tetanus toxoids and acellular pertussis vaccine Sid Huitron MD Work Phone: [facility] 1995 diphtheria, tetanus toxoids and acellular pertussis vaccine, unspecified formulation Christopher D Keys Work Phone: -[facility] Work Phone: 1995 haemophilus influenz ae type b vaccine, PRP-T conjugate Ousmaneer D Keys Work Phone: [facility] Work Phone: 1995 hepatitis B vaccine, pediatric or pediatric/adolescent dosage Christopher D Keys Work Phone: -[facility] Work Phone: 1995 poliovirus vaccine, inactivated Shruthi Wood SUPERVISOR [employer]ER Work Phone: [facility] Work Phone: 1995 trivalent poliovirus vaccine, live, oral Kyleopher D Keys Work Phone: [facility] Work Phone: 1995 hepatitis B vaccine, pediatric or pediatric/adolescent dosage Christopher D Keys Work Phone: [facility] Work Phone: Payers Date Payer Category Payer Private Health Insurance [id number] 2021 Private Health Insurance [id number] 2016 Private Health Insurance [facility] OPTIONS PPO [id number] 2016-Present [phone] [address] [address] [place] [address] PPO [id number] 1995 Unknown [id number] 1995 Unknown [id number] 1995 Unknown [id number] 1995 Unknown [id number] 1995 Unknown [id number] 1995 Unknown [id number] 1995 Unknown [id number] 1995 Unknown [id number] 1995 Unknown [id number] 1995 Unknown [id number] 1995 Unknown [id number] Unknown [employer] Social History Date Type Detail Facility Start: 03-30-2016 End: 07-09-2022 Tobacco smoking status NHIS Never smoked tobacco [facility] Start: 03-30-2016 End: 07-09-2022 Tobacco use and exposure Smokeless tobacco non-user [facility] Start: 1995 Sex Assigned At Not on file [facility] Start: 08-03-2021 End: 03-19-2023 Exposure to SARS-CoV-2 (event) Not sure [facility] Work Phone: Start: 07-09-2022 End: 08-21-2022 Non-smoker Non-smoker [employer] [facility] Work Phone: Clinical Notes 08-13-2021 to 04-02-2023 Keys MD - 03/19/2023 1:20 PM Isis Garcia APRN.LAND MEASURER - 03/18/2023 12:05 PM Emir Hernandez, PT - 02/26/2023 2:10 PM Emir Hernandez, PT - 02/19/2023 2:09 PM EST Note Date & Type Note Facility 04-02-2023 Note HNO ID: [id number] Author: EMIR RAMOS PT Service: ? Author Type: Physical Therapist Type: Progress Notes Filed: 04/02/2023 09:35 Note Text: Episode Visit Count: 4 Therapist That Will Accept/Oversee The Plan Of Care: Emir Molina Start of Care Date: 01/29/23 Onset Date: 01/30/20 Patient Identified by Name and Date of : Yes REHABILITATION AND SPORTS THERAPY PHYSICAL THERAPY DISCONTINUANCE OF CARE PLAN OF CARE UPDATE: Assessment: Gisela Grant is discontinued from Physical Therapy services due to maximal benefit.. Patient was seen for 4 visits from Start of Care Date: 01/29/23 to 04/02/2023 and treatment included: Therapeutic exercise, Manual therapy, and Self-shelter management. Goals for Episode of Care: created on 01/29/23 Updated on: 04/02/23 Patient demonstrates independence and compliance with home exercise Program.-MET Patient displays decreased muscle spasms in pelvic floor to allow for decreased pain levels.-MET Patient to report at least 85% improvement in pain with sexual [place].-NOT MET Patient reports at least 85% improvement in pelvic pain compared to IE.-NOT MET Patient Goals: improve pain SUBJECTIVE: Pt reports pain has worsened, flare-ups occur more frequently. Pt reports not even being able to carry household objects without cramping. Pt reports continued pelvic pain with intercourse. Pt reports good compliance with HEP, has not attempted dilators. Pt reports having follow up with physician in a couple weeks, would like to do HEP on own at home and follow up with physician. Pain: Pain Pain Level: 0 Post Treatment Pain Post Treatment Pain Level: 0 PROMIS Scales Higher is Better 02/24/2023 01/27/2023 Phys Func - Score Incomplete 55 (within normal limits) Phys Func - Percentile - 69% Self-Eff Symptom - Score - 36 (Low) Self-Eff Symptom - Percentile - 8% T-scores: mean of general population = 50. 5 points is clinically meaningfully difference Percentiles provide an indication of how the patient's score ranks in relation to the general population. Higher percentile rankings indicate better function/quality of life. 50th percentile is the average of the general population and indicates half of respondents had a worse score. OBJECTIVE MEASURES WITH LEVEL OF FUNCTION: Pelvic Floor Pain with penetration: Pain during intercourse, Deep and superficial, Pain after intercourse Pelvic Floor Muscle Assessment Consent for pelvic assessment/testing and treatment: Patient was educated regarding pelvic floor physical therapy assessment/treatment which may include pelvic floor and girdle muscle assessment externally or internally (vaginal or rectal approach)., Patient verbalized consent for the above treatment approaches today. Patient understands they have control of the treatment and an opportunity to stop treatment at any time. Range of Motion: Normal Ability to Lengthen pelvic floor: Yes Pelvic Floor Manual Assessment External Pelvic Region Tenderness/ Hyperactivity - Lower Extremity: Adductor Adductor: Bilateral (/) Pelvic Floor Tenderness/Hyperactivity: Tested Vaginally in Tested Vaginally in : Supine/hooklying (No tightness/tenderness noted.) Tissue Restriction/Tenderness Scale: 0= normal, 1= mild, 2= moderate, 3= severe TREATMENT: Manual Therapy: 1: Reassessment 2: Gentle stretching to B pelvic floor, supine 3: MFR to B adductors, supine 4: Discussed discharge planning Skilled Intervention: Manual skills to improve joint mobility, ROM, and decrease pain. Utilized anatomy knowledge of the therapist, and assessment of patient's response to intervention. Billing Manual TherapyTreatment Minutes: 27 Skilled Treatment Time Minutes (timed and untimed codes): 27 Total Session Time (minutes): 27 Session Start Time : 905 Session Stop Time : 932 Emir Molina, PT [facility] 03-19-2023 History of Presen t illness Narrative Subjective Patient ID: Jai Grant is a 27 y.o. female who presents for Change in fingernails, VApes. HPI Noticing finger nails growing down, no cracking or breaking, no skin issues Vaping for the past year and a half, has been trying to quit (nicotine) Some SOB/ALONZO, no coughing, getting over a URI, hard to take a deep breath, no edema Occ dizzy and LH Uses testosterone injections for the past year and a half Review of Systems Constitutional: Negative for activity change, appetite change and fatigue. Respiratory: Positive for shortness of breath. Negative for cough and chest tightness. Cardiovascular: Negative for chest pain, palpitations and leg swelling. Gastrointestinal: Negative for abdominal pain, constipation, diarrhea, nausea and vomiting. Current Outpatient Medications: adapalene (Differin) 0.3 % gel, , Disp: , Rfl: ALPRAZolam (Xanax) 0.5 mg tablet, Take 1 tablet (0.5 mg) by mouth 3 times a day as needed., Disp: , Rfl: lamoTRIgine (LaMICtal XR) 200 mg tablet extended release 24hr 24 hr tablet, 1 tablet (200 mg)., Disp: , Rfl: lamoTRIgine (LaMICtal) 25 mg tablet, 1 tablet (25 mg)., Disp: , Rfl: lithium 150 mg capsule, Take 1 capsule (150 mg) by mouth 2 times a day., Disp: , Rfl: propranolol (Inderal) 10 mg tablet, Take 1 tablet (10 mg) by mouth once daily., Disp: , Rfl: testosterone cypionate (Depo-Testosterone) 200 mg/mL injection, Inject 0.4 mL (80 mg) into the muscle 1 (one) time per week., Disp: , Rfl: Objective BP 104/84 Pulse 98 Ht 1.715 m (5' 7.5 ) Wt 80.2 kg (176 lb 14.4 oz) SpO2 98% BMI 27.30 kg/m Physical Exam Vitals and nursing note reviewed. Constitutional: Appearance: Normal appearance. HENT: Head: Normocephalic and atraumatic. Right Ear: Tympanic membrane, ear canal and external ear normal. Left Ear: Tympanic membrane, ear canal and external ear normal. Nose: Nose normal. Mouth/Throat: Mouth: Mucous membranes are moist. Pharynx: Oropharynx is clear. Cardiovascular: Rate and Rhythm: Normal rate and regular rhythm. Pulses: Normal pulses. Heart sounds: Normal heart sounds. Pulmonary: Effort: Pulmonary effort is normal. Breath sounds: Normal breath sounds. Musculoskeletal: Cervical back: Normal range of motion and neck supple. Neurological: Mental Status: She is alert. Psychiatric: Mood and Affect: Mood normal. Behavior: Behavior normal. Assessment/Plan Problem List Items Addressed This Visit None Visit Diagnoses Codes Dyspnea on exertion - Primary R06.09 Advised to quit vaping, check labs and chest x-ray, if symptoms worsen contact the office. Relevant Orders XR chest 2 views CBC and Auto Differential Comprehensive Metabolic Panel documented in this encounter [facility] Work Phone: 03-18-2023 Note HNO ID: [id number] Author: Isis Cook APRN.[employer] Service: ? Author Type: Nurse Practitioner Type: Progress Notes Filed: 03/18/2023 12:15 PM Note Text: Subjective The history is provided by the patient. No vortex operator was used. HPI Gisela Grant is a 27 year old adult who presents today for CC of sore throat and cough for 5 days. He also had a headache, post nasal draiange and felt light headed. He has used otc cough and cold medications with short term relief. Did a rapid home test that was negative. Declines testing today. BP 118/82 Pulse 91 Temp 36.7 ?C (98 ?F) Resp 21 Wt 81.3 kg (179 lb 3.2 oz) LMP 03/28/2021 (Approximate) SpO2 98% BMI 28.07 kg/m? Social History Tobacco Use Smoking status: Never Smokeless tobacco: Never Vaping Use Vaping Use: Never used Substance Use Topics Alcohol use: Yes Comment: socially, 1/month PAST MEDICAL HISTORY Diagnosis Date Bipolar 1 disorder (HCC) I have confirmed and edited as necessary, the [facility] Review of Systems Constitutional: Negative for chills and fever. HENT: Positive for sore throat. Negative for congestion, ear pain and sinus pain. Respiratory: Positive for cough. Negative for sputum production, shortness of breath and wheezing. Cardiovascular: Negative for chest pain. Musculoskeletal: Negative for myalgias. Neurological: Negative for headaches. Objective Physical Exam Vitals and nursing note reviewed. HENT: Head: Normocephalic and atraumatic. Right Ear: Tympanic membrane, ear canal and external ear normal. Left Ear: Tympanic membrane, ear canal and external ear normal. Nose: Mucosal edema, congestion and rhinorrhea present. Right Sinus: No maxillary sinus tenderness or frontal sinus tenderness. Left Sinus: No maxillary sinus tenderness or frontal sinus tenderness. Mouth/Throat: Pharynx: Uvula midline. Posterior oropharyngeal erythema present. No oropharyngeal exudate. Comments: Thick Clear Post Nasal Drainage Cardiovascular: Rate and Rhythm: Normal rate and regular rhythm. Heart sounds: Normal heart sounds. Pulmonary: Effort: Pulmonary effort is normal. Breath sounds: Normal breath sounds. Lymphadenopathy: Head: Right side of head: No submental, submandibular or tonsillar adenopathy. Left side of head: No submental, submandibular or tonsillar adenopathy. Cervical: No cervical adenopathy. Skin: General: Skin is warm and dry. Neurological: Mental Status: He is alert. Psychiatric: Mood and Affect: Affect normal. ASSESSMENT/PLAN: 1. URI with cough and congestion - ICD9: 465.9, ICD10: J06.9 (primary diagnosis) - Discussed viral etiology and rationale for treatment. - Symptomatic treatment with prn analgesia - Supportive care with fluids and rest - Declines covid, flu, rsv testing 2. Sore throat - ICD9: 462, ICD10: J02.9 - suspect viral - Group A strep molecular testing negative - Discussed supportive care treatment with fluids, rest and analgesia. - The patient may also use warm salt water gargles, throat lozenges and/or OTC throat spray as needed. - The patient should follow up in one week if symptoms persist or worsen - Call back if drooling, increased temperature, symptoms of dehydration and/or still sick in one week - STREP A MOLECULAR (POC) Diagnosis and treatment plan were discussed and questions were answered to the patient's satisfaction. Pt acknowledged understanding of concepts and follow up plan. Specific signs and symptoms that would indicate the need for higher level of care were discussed in detail warranting prompt ER evaluation. Isis Cook APRN.[facility] 12-21-2023 History of Presen t illness Narrative Subjective The history is provided by the patient. No vortex operator was used. HPI Gisela Grant is a 27 year old adult who presents today for CC of sore throat and cough for 5 days. He also had a headache, post nasal draiange and felt light headed. He has used otc cough and cold medications with short term relief. Did a rapid home test that was negative. Declines testing today. BP 118/82 Pulse 91 Temp 36.7 C (98 F) Resp 21 Wt 81.3 kg (179 lb 3.2 oz) LMP 03/28/2021 (Approximate) SpO2 98% BMI 28.07 kg/m Social History Tobacco Use Smoking status: Never Smokeless tobacco: Never Vaping Use Vaping Use: Never used Substance Use Topics Alcohol use: Yes Comment: socially, 1/month PAST MEDICAL HISTORY Diagnosis Date Bipolar 1 disorder (HCC) I have confirmed and edited as necessary, the [facility] Review of Systems Constitutional: Negative for chills and fever. HENT: Positive for sore throat. Negative for congestion, ear pain and sinus pain. Respiratory: Positive for cough. Negative for sputum production, shortness of breath and wheezing. Cardiovascular: Negative for chest pain. Musculoskeletal: Negative for myalgias. Neurological: Negative for headaches. Objective Physical Exam Vitals and nursing note reviewed. HENT: Head: Normocephalic and atraumatic. Right Ear: Tympanic membrane, ear canal and external ear normal. Left Ear: Tympanic membrane, ear canal and external ear normal. Nose: Mucosal edema, congestion and rhinorrhea present. Right Sinus: No maxillary sinus tenderness or frontal sinus tenderness. Left Sinus: No maxillary sinus tenderness or frontal sinus tenderness. Mouth/Throat: Pharynx: Uvula midline. Posterior oropharyngeal erythema present. No oropharyngeal exudate. Comments: Thick Clear Post Nasal Drainage Cardiovascular: Rate and Rhythm: Normal rate and regular rhythm. Heart sounds: Normal heart sounds. Pulmonary: Effort: Pulmonary effort is normal. Breath sounds: Normal breath sounds. Lymphadenopathy: Head: Right side of head: No submental, submandibular or tonsillar adenopathy. Left side of head: No submental, submandibular or tonsillar adenopathy. Cervical: No cervical adenopathy. Skin: General: Skin is warm and dry. Neurological: Mental Status: He is alert. Psychiatric: Mood and Affect: Affect normal. ASSESSMENT/PLAN: 1. URI with cough and congestion - ICD9: 465.9, ICD10: J06.9 (primary diagnosis) - Discussed viral etiology and rationale for treatment. - Symptomatic treatment with prn analgesia - Supportive care with fluids and rest - Declines covid, flu, rsv testing 2. Sore throat - ICD9: 462, ICD10: J02.9 - suspect viral - Group A strep molecular testing negative - Discussed supportive care treatment with fluids, rest and analgesia. - The patient may also use warm salt water gargles, throat lozenges and/or OTC throat spray as needed. - The patient should follow up in one week if symptoms persist or worsen - Call back if drooling, increased temperature, symptoms of dehydration and/or still sick in one week - STREP A MOLECULAR (POC) Diagnosis and treatment plan were discussed and questions were answered to the patient's satisfaction. Pt acknowledged understanding of concepts and follow up plan. Specific signs and symptoms that would indicate the need for higher level of care were discussed in detail warranting prompt ER evaluation. Isis Cook APRN.[employer] documented in this encounter [facility] 02-26-2023 Note HNO ID: [id number] Author: Emir Ramos PT Service: ? Author Type: Physical Therapist Type: Progress Notes Filed: 02/26/2023 2:50 PM Note Text: Episode Visit Count: 3 Therapist That Will Accept/Oversee The Plan Of Care: Emir Molina Start of Care Date: 01/29/23 Onset Date: 01/30/20 Patient Identified by Name and Date of : Yes REHABILITATION AND SPORTS THERAPY PHYSICAL THERAPY TREATMENT NOTE ASSESSMENT: Gisela Grant tolerated the session with no issues. He demonstrated improvements in internal pelvic floor muscle tightness/tenderness. The patient will continue to benefit from ongoing skilled physical therapy to progress toward set goals. PLAN FOR NEXT VISIT: reassessment SUBJECTIVE: Pt reports severe lower abdominal pain for 4 hours after last session, felt achey afterwards. Pt reports feeling fine for the past 4-5 days. Pt reports good compliance with HEP. Pain: Pain Pain Level: 0 Post Treatment Pain Post Treatment Pain Level: 0 OBJECTIVE MEASURES WITH LEVEL OF FUNCTION: Pelvic Floor Muscle Assessment Consent for pelvic assessment/testing and treatment: Patient was educated regarding pelvic floor physical therapy assessment/treatment which may include pelvic floor and girdle muscle assessment externally or internally (vaginal or rectal approach)., Patient verbalized consent for the above treatment approaches today. Patient understands they have control of the treatment and an opportunity to stop treatment at any time. Pelvic Floor Manual Assessment External Pelvic Region Tenderness/ Hyperactivity - Trunk: Lower abdominals Lower abdominals: Bilateral (1/) External Pelvic Region Tenderness/ Hyperactivity - Lower Extremity: Adductor Adductor: Bilateral (1/) Pelvic Floor Tenderness/Hyperactivity: Tested Vaginally in Tested Vaginally in : Supine/hooklying Superficial transverse perineal: Bilateral (1/) Deep transverse perineal: Bilateral (1/) Tissue Restriction/Tenderness Scale: 0= normal, 1= mild, 2= moderate, 3= severe TREATMENT: Manual Therapy: 1: Gentle stretching to B pelvic floor, supine 2: MFR to B lower abdominals, supine 3: MFR to B adductors, supine Skilled Intervention: Manual skills to improve joint mobility, ROM, and decrease pain. Utilized anatomy knowledge of the therapist, and assessment of patient's response to intervention. Billing Manual TherapyTreatment Minutes: 40 Skilled Treatment Time Minutes (timed and untimed codes): 40 Total Session Time (minutes): 40 Session Start Time : 1410 Session Stop Time : 1450 Emir Molina, PT [facility] 02-26-2023 History of Presen t illness Narrative Episode Visit Count: 3 Therapist That Will Accept/Oversee The Plan Of Care: Emir Molina Start of Care Date: 01/29/23 Onset Date: 01/30/20 Patient Identified by Name and Date of : Yes REHABILITATION AND SPORTS THERAPY PHYSICAL THERAPY TREATMENT NOTE ASSESSMENT: Gisela Padron Katarzynatraviscarmen tolerated the session with no issues. He demonstrated improvements in internal pelvic floor muscle tightness/tenderness. The patient will continue to benefit from ongoing skilled physical therapy to progress toward set goals. PLAN FOR NEXT VISIT: reassessment SUBJECTIVE: Pt reports severe lower abdominal pain for 4 hours after last session, felt achey afterwards. Pt reports feeling fine for the past 4-5 days. Pt reports good compliance with HEP. Pain: Pain Pain Level: 0 Post Treatment Pain Post Treatment Pain Level: 0 OBJECTIVE MEASURES WITH LEVEL OF FUNCTION: Pelvic Floor Muscle Assessment Consent for pelvic assessment/testing and treatment: Patient was educated regarding pelvic floor physical therapy assessment/treatment which may include pelvic floor and girdle muscle assessment externally or internally (vaginal or rectal approach)., Patient verbalized consent for the above treatment approaches today. Patient understands they have control of the treatment and an opportunity to stop treatment at any time. Pelvic Floor Manual Assessment External Pelvic Region Tenderness/ Hyperactivity - Trunk: Lower abdominals Lower abdominals: Bilateral (1/) External Pelvic Region Tenderness/ Hyperactivity - Lower Extremity: Adductor Adductor: Bilateral (/) Pelvic Floor Tenderness/Hyperactivity: Tested Vaginally in Tested Vaginally in : Supine/hooklying Superficial transverse perineal: Bilateral (/) Deep transverse perineal: Bilateral (/) Tissue Restriction/Tenderness Scale: 0= normal, 1= mild, 2= moderate, 3= severe TREATMENT: Manual Therapy: 1: Gentle stretching to B pelvic floor, supine 2: MFR to B lower abdominals, supine 3: MFR to B adductors, supine Skilled Intervention: Manual skills to improve joint mobility, ROM, and decrease pain. Utilized anatomy knowledge of the therapist, and assessment of patient's response to intervention. Billing Manual TherapyTreatment Minutes: 40 Skilled Treatment Time Minutes (timed and untimed codes): 40 Total Session Time (minutes): 40 Session Start Time : 1410 Session Stop Time : 1450 Emir Molina PT documented in this encounter [facility] 02-19-2023 Note HNO ID: [id number] Author: Emir Ramos PT Service: ? Author Type: Physical Therapist Type: Progress Notes Filed: 02/19/2023 2:57 PM Note Text: Episode Visit Count: 2 Therapist That Will Accept/Oversee The Plan Of Care: Emir Molina Start of Care Date: 01/29/23 Onset Date: 01/30/20 Patient Identified by Name and Date of : Yes REHABILITATION AND SPORTS THERAPY PHYSICAL THERAPY TREATMENT NOTE ASSESSMENT: Gisela Grant tolerated the session with no issues. He demonstrated difficulty with unchanged pelvic pain. The patient will continue to benefit from ongoing skilled physical therapy to progress toward set goals. PLAN FOR NEXT VISIT: progress stretches, internal/external manual work SUBJECTIVE: Pt reports no changes in pelvic pain since last visit. Pt reports fair compliance with HEP but states diaphragmatic breathing has been helpful with cramps. Pain: Pain Pain Level: 0 Post Treatment Pain Post Treatment Pain Level: 0 OBJECTIVE MEASURES WITH LEVEL OF FUNCTION: Pelvic Floor Muscle Assessment Consent for pelvic assessment/testing and treatment: Patient was educated regarding pelvic floor physical therapy assessment/treatment which may include pelvic floor and girdle muscle assessment externally or internally (vaginal or rectal approach)., Patient verbalized consent for the above treatment approaches today. Patient understands they have control of the treatment and an opportunity to stop treatment at any time. Pelvic Floor Manual Assessment External Pelvic Region Tenderness/ Hyperactivity - Trunk: Lower abdominals Lower abdominals: Bilateral (1/1) External Pelvic Region Tenderness/ Hyperactivity - Lower Extremity: Adductor Adductor: Bilateral (1/1) Tissue Restriction/Tenderness Scale: 0= normal, 1= mild, 2= moderate, 3= severe TREATMENT: Therapeutic Exercise: 1: *piriformis stretch, [id number] each 2: *supine 90/90 hamstring stretch, [id number] each 3: *LTR, [id number] each Skilled Intervention: Patient was educated in proper exercise technique and purpose for exercises. Skilled judgment was used in selection of appropriate interventions. Manual Therapy: 1: MFR to B lower abdominals, supine 2: MFR to B adductors, supine Skilled Intervention: Manual skills to improve joint mobility, ROM, and decrease pain. Utilized anatomy knowledge of the therapist, and assessment of patient's response to intervention. Billing Therapeutic Exercise Treatment Minutes: 12 Manual TherapyTreatment Minutes: 26 Skilled Treatment Time Minutes (timed and untimed codes): 38 Total Session Time (minutes): 38 Session Start Time : 1417 Session Stop Time : 1455 Emir Molina, PT [facility] 02-19-2023 History of Presen t illness Narrative Episode Visit Count: 2 Therapist That Will Accept/Oversee The Plan Of Care: Emir Molina Start of Care Date: 01/29/23 Onset Date: 01/30/20 Patient Identified by Name and Date of : Yes REHABILITATION AND SPORTS THERAPY PHYSICAL THERAPY TREATMENT NOTE ASSESSMENT: Gisela Nereida Grant tolerated the session with no issues. He demonstrated difficulty with unchanged pelvic pain. The patient will continue to benefit from ongoing skilled physical therapy to progress toward set goals. PLAN FOR NEXT VISIT: progress stretches, internal/external manual work SUBJECTIVE: Pt reports no changes in pelvic pain since last visit. Pt reports fair compliance with HEP but states diaphragmatic breathing has been helpful with cramps. Pain: Pain Pain Level: 0 Post Treatment Pain Post Treatment Pain Level: 0 OBJECTIVE MEASURES WITH LEVEL OF FUNCTION: Pelvic Floor Muscle Assessment Consent for pelvic assessment/testing and treatment: Patient was educated regarding pelvic floor physical therapy assessment/treatment which may include pelvic floor and girdle muscle assessment externally or internally (vaginal or rectal approach)., Patient verbalized consent for the above treatment approaches today. Patient understands they have control of the treatment and an opportunity to stop treatment at any time. Pelvic Floor Manual Assessment External Pelvic Region Tenderness/ Hyperactivity - Trunk: Lower abdominals Lower abdominals: Bilateral (1/1) External Pelvic Region Tenderness/ Hyperactivity - Lower Extremity: Adductor Adductor: Bilateral (1/1) Tissue Restriction/Tenderness Scale: 0= normal, 1= mild, 2= moderate, 3= severe TREATMENT: Therapeutic Exercise: 1: *piriformis stretch, [id number] each 2: *supine 90/90 hamstring stretch, [id number] each 3: *LTR, [id number] each Skilled Intervention: Patient was educated in proper exercise technique and purpose for exercises. Skilled judgment was used in selection of appropriate interventions. Manual Therapy: 1: MFR to B lower abdominals, supine 2: MFR to B adductors, supine Skilled Intervention: Manual skills to improve joint mobility, ROM, and decrease pain. Utilized anatomy knowledge of the therapist, and assessment of patient's response to intervention. Billing Therapeutic Exercise Treatment Minutes: 12 Manual TherapyTreatment Minutes: 26 Skilled Treatment Time Minutes (timed and untimed codes): 38 Total Session Time (minutes): 38 Session Start Time : 1417 Session Stop Time : 1455 Emir Molina PT documented in this encounter [facility] 01-29-2023 Note HNO ID: [id number] Author: Emir Ramos PT Service: ? Author Type: Physical Therapist Type: Progress Notes Filed: 01/29/2023 11:34 AM Note Text: Episode Visit Count: 1 Therapist That Will Accept/Oversee The Plan Of Care: Emir Molina Start of Care Date: 01/29/23 Onset Date: 01/30/20 Patient Identified by Name and Date of : Yes REHABILITATION AND SPORTS THERAPY PHYSICAL THERAPY EVALUATION PLAN OF CARE: Assessment: Gisela Grant presents with chief complaint of pelvic pain that interferes with altered sexual function, physical activities . He presents with impairments in pelvic floor muscle tightness/tenderness; impaired sexual function. PROMIS? (Patient-Reported Outcomes Measurement Information System) scores were reviewed and self efficacy domain identified as a rehabilitation concern. Prognosis for therapy is Good due to: current objective clinical presentation . He will benefit from skilled therapy services to meet the goals established for this plan of care as noted below. Goals for Episode of Care: created on 01/29/23 through 04/29/23 Patient demonstrates independence and compliance with home exercise program. Patient displays decreased muscle spasms in pelvic floor to allow for decreased pain levels. Patient to report at least 85% improvement in pain with sexual intercourse. Patient reports at least 85% improvement in pelvic pain compared to IE. Patient Goals: improve pain Planned Interventions, Frequency, and Duration: Current Frequency: 1x/week Duration: 4 weeks (reassess at 4 weeks and progress as indicated) Total Number of Visits Planned: 4 Planned Treatment Interventions: Therapeutic exercise (13663), Manual therapy (21998), Self-shelter management (87331), Patient/Family/Caregiver Education PLAN FOR NEXT VISIT: progress stretches, assess external connective tissue Patient demonstrates good understanding of plan of care and treatment. The above goals and plan of care were discussed and agreed upon by patient/family. SUBJECTIVE: Pt reports pelvic pain began about 3 years ago after having an . Pt reports getting an IUD after that and experienced severe bleeding and cramping. Pt reports now not having a period but does experience spotting sometimes. Pt reports starting hormones to transition from female to male in July 2021, these did not affect current pelvic pain. 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 PAST MEDICAL HISTORY Diagnosis Date Bipolar 1 disorder (HCC) PAST SURGICAL HISTORY Procedure Laterality Date F INDUCED BY [facility] awake for procedure MASTECTOMY, SIMPLE, COMPLETE for transition Intake Information: Prescription present Previous Treatment: None Falls Interview: No positive findings with falls interview Pain: Pain Pain Level: 0 Post Treatment Pain Post Treatment Pain Level: 0 PROMIS Scales Higher is Better 01/27/2023 Phys Func - Score 55 (within normal limits) Phys Func - Percentile 69 % Self-Eff Symptom - Score 36 (Low) Self-Eff Symptom - Percentile 8 % T-scores: mean of general population = 50. 5 points is clinically meaningfully difference Percentiles provide an indication of how the patient's score ranks in relation to the general population. Higher percentile rankings indicate better function/quality of life. 50th percentile is the average of the general population and indicates half of respondents had a worse score. OBJECTIVE MEASURES WITH LEVEL OF FUNCTION: Pelvic Floor Pregnancies: 1 Births: 0 Pain with penetration: Pain during intercourse, Pain after intercourse, Deep and superficial Urinary/Bowel History : Urinary History, Bowel History Difficulty starting stream: No Incomplete emptying: No Stress Incontinence: No Urgency: No Nocturia (times per night): 0 Daytime Frequency (hours): 2 Fluid Intake: Water, Pop/Diet Pop (8 oz measurements) Water : 8+ Pop/Diet Pop : 1 Difficulty evacuating / Excessive Straining: No Incomplete emptying: No Bowel Movement Frequency: 1x/day Fecal incontinence: No Pelvic Floor Muscle Assessment Consent for pelvic assessment/testing and treatment: Patient was educated regarding pelvic floor physical therapy assessment/treatment which may include pelvic floor and girdle muscle assessment externally or internally (vaginal or rectal approach)., Patient verbalized consent for the above treatment approaches today. Patient understands they have control of the treatment and an opportunity to stop treatment at any time. Pelvic Floor Muscle Assessment: Melisa HENNING (more content not included)... [facility] 01-29-2023 History of Presen t illness Narrative Episode Visit Count: 1 Therapist That Will Accept/Oversee The Plan Of Care: Emir Molina Start of Care Date: 01/29/23 Onset Date: 01/30/20 Patient Identified by Name and Date of : Yes REHABILITATION AND SPORTS THERAPY PHYSICAL THERAPY EVALUATION PLAN OF CARE: Assessment: Gisela Grant presents with chief complaint of pelvic pain that interferes with altered sexual function, physical activities . He presents with impairments in pelvic floor muscle tightness/tenderness; impaired sexual function. PROMIS (Patient-Reported Outcomes Measurement Information System) scores were reviewed and self efficacy domain identified as a rehabilitation concern. Prognosis for therapy is Good due to: current objective clinical presentation . He will benefit from skilled therapy services to meet the goals established for this plan of care as noted below. Goals for Episode of Care: created on 01/29/23 through 04/29/23 Patient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 Medical Hx: has a past medical history of Bipolar disorder. Past Surgical Hx: has no past surgical history on file. Family History: family history includes Bipolar Disorder in his mother; No known problems in his father. Social history: reports that he has never smoked. He has never used smokeless tobacco. No history on file for alcohol use and drug use. Allergies: No Known Allergies Current Outpatient Medications Medication Sig Alcohol Swabs Pads Use as directed with injections ALPRAZolam 0.5 MG tablet TAKE 1 TABLET BY ORAL ROUTE 2 TIME(S) PER DAY NEEDED lamoTRIgine 200 MG tablet Take 200 mg by mouth daily. Edmonds 450 MG Tab CR Take 450 mg by mouth 2 times daily with meals. NEEDLE, DISP, 18 G 18G X 1 Misc Use weekly with T injections SYRINGE/NEEDLE, DISP, 1 ML 23G X 1 1 ML Misc Use weekly with testosterone injections testosterone cypionate 200 MG/ML Solution injection INJECT 0.25 ML INTRAMUSCULARLY EVERY 7 DAYS. adapalene 0.3 % Gel gel Apply to affected area once daily Benzoyl Peroxide 5 % Liquid Wash face once or twice daily Sid Huitron MD General Internal [facility] [place] [address] [place] [address] [phone] documented in this encounter [facility] 03-25-2022 Instructions Shayne Mendoza - 03/25/2022 11:30 AM EST Images from the original note were not included. l documented in this encounter [facility] 08-13-2021 History of Presen t illness Narrative CC: Patient presents with: Sore Throat: cough x3 days HPI: Gisela Blanc is a 25 year old female who presents to the office with complaint of cough, nonproductive, sore throat and fever for a few days. Symptoms are worsening Associated symptoms includes sore throat. Denies headache, body aches, ear pain, nausea, vomiting and diarrhea. Treatments tried include nothing so far. with no relief of symptoms. Sick contacts: unknown. History of asthma, frequent episodes of bronchitis, chronic bronchitis, bronchiectasis or COPD: No Smoker: No Seasonal/environmental allergies: No The ROS is otherwise negative. The patient's pmh, medications, allergies, and past visits are reviewed. PHYSICAL EXAM: BP 122/84 Pulse 112 Temp 36.2 C (97.2 F) Resp 20 Wt 78.6 kg (173 lb 3.2 oz) LMP 03/18/2016 SpO2 100% General appearance: alert, cooperative, pleasant, in no acute distress Head: Normocephalic Eyes: EOM's intact, conjunctiva pink and moist, no icterus, sclera white, non-injected Ears: Right ear: External ear/canal- Normal, TM - clear with good landmarks. Left ear: External ear/canal- Normal, TM - clear with good landmarks Oropharynx:moderate erythema, without exudates present Heart: Negative. RRR without obvious murmur, gallop, or rubs. No ectopy. Lungs: clear to auscultation, without rales or wheeze, good air exchange = PAST MEDICAL HISTORY Diagnosis Date Bipolar 1 disorder (HCC) PAST SURGICAL HISTORY Procedure Laterality Date F INDUCED BY D&C ALLERGIES Patient has no known allergies. MEDICATIONS INTRAUTERINE DEVICE, IUD, INTRAUTERINE by INTRAUTERINE route. OXcarbazepine (TRILEPTAL) 300 mg tablet OXcarbazepine Oxcarbazepine Active 300 MG TWICE A DAY May 23, 2019 3:31pm 05-23-2019 [facility] ([id number]) lithium carbonate ER 450 mg CR tablet Edmonds Carbonate Edmonds Carbonate Active 450 MG TWICE A DAY May 23, 2019 3:31pm 05-23-2019 [facility] ([id number]) escitalopram oxalate (LEXAPRO) 20 mg tablet Take 20 mg by mouth. diphenhydrAMINE (BENADRYL) 25 mg capsule Take 1 -2 caps qhs prn for sleep ALPRAZolam (XANAX) 0.5 mg tablet TAKE 1 TABLET BY ORAL ROUTE 2 TIME(S) PER DAY NEEDED lamoTRIgine (LAMICTAL) 25 mg tablet Take 2 tablets qam copper (PARAGARD T 380A) 380 square mm intrauterine device 1 Intra Uterine Device by INTRAUTERINE route. No family history on file. Social History Tobacco Use Smoking status: Never Smoker Smokeless tobacco: Never Used Vaping Use Vaping Use: Never used Substance Use Topics Alcohol use: Not on file Drug use: Not on file ASSESSMENT/PLAN: 1. Sore throat - ICD9: 462, ICD10: J02.9 (primary diagnosis) - STREP A MOLECULAR (POC) - negative 2. Suspected COVID-19 virus infection - ICD9: V01.79, ICD10: Z20.822 - COVID WITH FLUA+B, ROUTINE awating covid test. Potential red flag symptoms discussed with the patient. Reviewed appropriate action plan to take if red flag symptoms occur. Patient agreeable to treatment plan. Fabienne Gibbons APRN.CNP documented in this encounter [facility] Diagnosis Gender dysphoria- Primary Acne vulgaris Other acne [facility] Diagnosis Pre-operative laboratory examination Pre-procedural laboratory examination Pre-operative clearance Unspecified pre-operative examination Bipolar 1 disorder (CMS/HCC) documented in this encounter [facility] Work Phone: Evaluation note* Diagnosis Pelvic pain- Primary Muscle tightness Unspecified disorder of muscle, ligament, and fascia [facility] Diagnosis Pelvic pain [facility] Diagnosis Pelvic pain- Primary Muscle tightness Unspecified disorder of muscle, ligament, and fascia [facility] Diagnosis Pelvic pain- Primary Muscle tightness Unspecified disorder of muscle, ligament, and fascia [facility] Diagnosis URI with cough and congestion- Primary Sore throat Acute pharyngitis [facility] Diagnosis Dyspnea on exertion- Primary Other dyspnea and respiratory abnormality documented in this encounter [facility] Work Phone: Evaluation note* Diagnosis Dyspnea on exertion Other dyspnea and respiratory abnormality documented in this encounter [facility] Work Phone: History of Present illness Narrative* Lives in [place] * sees Psych at [facility] in [place], Bipolar D/O, been on meds for a couple of years * gets blood testing every 3-6 months * gets testosterone injection from [facility] in [place], no replacement for 5 months (for sex modification) * gets pap testing (never had abnormal pap) * sleep issues off and one * 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[employer] [facility] Work Phone: History of Present illness Narrative* to have bilateral breast removal 04/16, in [place] * needs COVID testing done to procedure * no tobacco, able to exercise 4 mets in the past * no Hx of GET, no FHx of issues * No headache, chest pain, shortness of breath, dizziness, lightheadedness, or edema * emotionally doing OK, sees Psychiatry, uses Xanax at night to help sleep [employer] [facility] Work Phone: reason for referral (narrative)* Diagnostic Procedure Only (Routine) - Closed Specialty Diagnoses / Procedures Referred By Nikhil del real Referred To Contact US IMAGING Diagnoses Pelvic pain Procedures US FEMALE PELVIS TRANSVAG US TRANSVAGINAL Natalie Recio APRN.[facility] [address] [place] [address] [facility] [address] Referral ID Status Reason Start Date Expiration Date V isits Requested Visits Authorized [id number] Closed Auto-Generate d Referral 04/21/2022 05/21/2023 1 1 [facility] Summary Purpose Family History No Family History Records FoundUnknown Family Member Name Dates Details No pertinent family history: Mother, Father(V49.89, Z78.9) Status:Active Unknown Family Member Name Dates Details No pertinent family history: Mother, Father(V49.89, Z78.9) Status:Active Unknown Family Member Name Dates Details No pertinent family history: Mother, Father(V49.89, Z78.9) Status:Active Unknown Family Member Name Dates Details No pertinent family history: Mother, Father(V49.89, Z78.9) Status:Active Advance Directives No Advanced Directives Records FoundNo Advanced Directives Records FoundNo Advanced Directives Records FoundNo Advanced Directives Records FoundNo Advanced Directives Records FoundNo Advanced Directives Records FoundNo Advanced Directives Records Found Health Concerns Infection Onset Date Last Indicated Resolved Time COVID-19 Rule-Out 08/13/2021 08/13/2021 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 Reason for Referral Specialty Diagnoses / Procedures Referred By Contac t Referred To Contact Diagnoses Pre-operative clearance Procedures ECG 12 lead (Clinic Performed) Shruthi Castrejon APRN-LIANA [address] [place] [address] Referral ID Status Reason Start Date Expiration Date V isits Requested Visits Authorized [id number] Authorized 07/09/2022 01/05/2023 1 1 Specialty Diagnoses / Procedures Referred By Contac t Referred To Contact Radiology Diagnoses Dyspnea on exertion Procedures XR chest 2 views Sunday Keys MD [address] [place] [address] Referral ID Status Reason Start Date Expiration Date Visits Requested Visits Authorized [id number] Authorized Perform Procedure 3 03/18/2024 1 1 Additional Source Comments INFORMATION SOURCE (unrecogn ized section and content) DATE CREATED AUTHOR AUTHOR'S ORGANIZ ATION 04/14/2022 [facility] DATE CREATED AUTHOR AUTHOR'S ORGANIZ ATION 07/10/2022 [facility] DATE CREATED AUTHOR AUTHOR'S ORGANIZ ATION 02/04/2023 [facility] DATE CREATED AUTHOR AUTHOR'S ORGANIZ ATION 03/21/2023 [facility] DATE CREATED AUTHOR AUTHOR'S ORGANIZ ATION 03/24/2023 [facility] DATE CREATED AUTHOR AUTHOR'S ORGANIZ ATION 04/03/2023 [facility] Source Comments (unrecognize d section and content) In the event this informatio n is protected by the Federal Confidentiality of Alcohol and Drug Abuse Patient Records regulations: The Federal rules restrict any use of the information to criminally investigate or prosecute any alcohol or drug abuse patient.[facility] the event this information is protected by the Federal Confidentiality of Alcohol and Drug Abuse Patient Records regulations: The Federal rules restrict any use of the information to criminally investigate or prosecute any alcohol or drug abuse patient.[facility] the event this information is protected by the Federal Confidentiality of Alcohol and Drug Abuse Patient Records regulations: The Federal rules restrict any use of the information to criminally investigate or prosecute any alcohol or drug abuse patient.[facility] the event this information is protected by the Federal Confidentiality of Alcohol and Drug Abuse Patient Records regulations: The Federal rules restrict any use of the information to criminally investigate or prosecute any alcohol or drug abuse patient.[facility] the event this information is protected by the Federal Confidentiality of Alcohol and Drug Abuse Patient Records regulations: The Federal rules restrict any use of the information to criminally investigate or prosecute any alcohol or drug abuse patient.[facility] the event this information is protected by the Federal Confidentiality of Alcohol and Drug Abuse Patient Records regulations: The Federal rules restrict any use of the information to criminally investigate or prosecute any alcohol or drug abuse patient.[facility] Reason for Visit (unrecogniz ed section and content) Specialty Diagnoses / Procedures Referred By Contac t Referred To Contact Physical Therapy / PHYSICAL THERAPY Diagnoses Pelvic pain [R10.2] Procedures PHYSICAL THERAPY EVALUATION HIGH COMPLEX 45 MINS THERAPEUTIC EXERCISES RE, EA 15 MIN. NEW RS PT PELVIC PAIN/INCONT Natalie Recio APRN.CNM [address] [place] [address] Emir Ramos, PT [address] [place] [address] Referral ID Status Reason Start Date Expiration Date V isits Requested Visits Authorized [id number] Authorized 02/02/2023 03/28/2023 100 100 Specialty Diagnoses / Procedures Referred By Contac t Referred To Contact [facility] Diagnoses Pelvic pain Procedures CONSULT TO PHYSICAL THERAPY PHYSICAL THERAPY EVALUATION HIGH COMPLEX 45 MINS Natalie Recio APRN.CNM [address] [place] [address] [facility] [address] [place] [address] Referral ID Status Reason Start Date Expiration Date V isits Requested Visits Authorized [id number] Closed Auto-Generate d Referral 03/29/2022 03/28/2023 1 1 Reason Comments Sore Throat cough x3 days Reason Comments Follow-up Follow up Reason Comments Pre-op Exam Double mastectomy on 07/30 Reason Comments PT Eval Reason Comments Radiology US Specialty Diagnoses / Procedures Referred By Contac t Referred To Contact US IMAGING Diagnoses Pelvic pain Procedures US FEMALE PELVIS TRANSVAG US TRANSVAGINAL Natalie Recio APRN.CNM [address] [place] [address] [place] [id number] Referral ID Status Reason Start Date Expiration Date V isits Requested Visits Authorized [id number] Closed Auto-Generate d Referral 04/21/2022 05/21/2023 1 1 Reason Comments Sore Throat Cough, light headed x 5 days Reason Comments Change in fingernails, VApes Specialty Diagnoses / Procedures Referred By Contac t Referred To Contact Radiology Diagnoses Dyspnea on exertion Procedures XR chest 2 views Sunday Keys MD [address] [place] [address] Referral ID Status Reason Start Date Expiration Date Visits Requested Visits Authorized [id number] Authorized Perform Procedure 3 03/18/2024 1 1 Care Teams (unrecognized sec tion and content) Lav Crewman Relationship Specialty Start Date End Date Sunday Keys MD [address] [place] [address] PCP - General 01/09/22 Lav Crewman Relationship Specialty Start Date End Date Sunday Keys MD [address] [place] [address] PCP - General Family Medicine 03/18/23 Lav Crewman Relationship Specialty Start Date End Date Sunday Keys MD PCP - General 01/09/22 Lav Crewman Relationship Specialty Start Date End Date Sunday Keys MD PCP - General 01/09/22 FOR RECORDS PERTAINING TO PATIENTS WHO ARE OR HAVE BEEN ENROLLED IN A CHEMICAL DEPENDENCY/SUBSTANCEABUSE PROGRAM, SOME INFORMATION MAY BE OMITTED. This clinical summary was aggregated from multiple sources. Caution should be exercised in using it in the provision of clinical care. This summary normalizes information from multiple sources, and as a consequence, information in this document may materially change the coding, format and clinical context of patient data. In addition, data may be omitted in some cases. CLINICAL DECISIONS SHOULD BE BASED ON THE PRIMARY CLINICAL RECORDS. [facility]. provides no warranty or guarantee of the accuracy or completeness of information in this document.
[2023-04-08 16:51] LABS: Internal QC Validated? YES +Cl - CLEAR BKGD; Pregnancy, Serum, hCG Quali. NEGATIVE Negative
[2023-04-08 17:00] VITALS: RESP 16
[2023-04-08 18:00] VITALS: RESP 16
--- NOTE | 2023-04-08 18:40 | ED.RN ---
Dr. Jenkins just enters room and is at the bedside for assessment at this time.
--- NOTE | 2023-04-08 18:46 | EX.ED.VIS.PS ---
HPI HPI - Psych History of Present Illness Chief Complaint: Suicidal Narrative Narrative: Patient with history of bipolar disorder coming in with depression. The patient states that it is hard to be functional since [place] in the new year. The patient states that has been hard to get up and go to work since then. Patient has missed several days of work. Patient feels more depressed. Patient saw crisis today and was sent to the ER out of concerns that the patient was talking about trying cutting their own risk with scalpels when they are at work. Patient states other than this has no plan. Patient has a history of depression which is exacerbated. [facility] Medical History Anxiety Depression Home Medications hydrocodone-acetaminophen 5-325mg 5mg-325mg 1 tab PO Q6H PRN PRN Pain 3 days ##10 12/19/17 [Rx Last Taken Unknown] lamotrigine 200 mg tablet 200 mg PO DAILY 05/23/19 [History Last Taken Unknown] lithium carbonate 450 mg tablet,extended release 450 mg PO BID 05/23/19 [History Last Taken Unknown] oxcarbazepine 300 mg tablet 300 mg PO BID 05/23/19 [History Last Taken Unknown] alprazolam 0.5 mg tablet (Xanax) 0.5 mg PO DAILY PRN Anxiety 06/27/21 [History Last Taken Unknown] Allergy/AdvReac Type Severity Reaction Status Date / Time No Known Allergies Allergy Verified 04/08/23 14:33 Social History Smoking Status: Current every day smoker tobacco type: cigarettes and e-cigarettes ROS ROS ED Constitutional Constitutional ED: Denies chills, fever(s) or sweats Eyes Eyes: Denies blurry vision or change in vision ENT ENT ED: Denies ear pain or sore throat Cardiovascular Cardiovascular: Denies chest pain, palpitations or racing heartbeat Respiratory/Chest Respiratory/Chest: Denies cough, dyspnea or sputum Gastrointestinal Gastrointestinal: Denies abdominal pain, constipation, diarrhea, nausea or vomiting Genitourinary Genitourinary ED: Denies dysuria, hematuria or urinary frequency Musculoskeletal Musculoskeletal: Denies arthralgias, myalgias or neck pain Integumentary Denies abscess, Abrasions or rash Neurologic Neurologic: Denies headache(s), paresthesias or weakness Psychiatric Psychiatric: Reports anxiety, depression, suicidal ideation and suicidal thoughts Endocrine Endocrinology: Denies polydipsia or polyuria EXAM Physical Exam Const Vital Signs: 04/08/23 14:30 04/08/23 17:00 04/08/23 18:00 Temperature 97.3 F L Temperature Source Temporal Pulse Rate 86 Respiratory Rate 16 16 16 Blood Pressure 105/58 L Blood Pressure Mean 73 Pulse Ox 100 Oxygen Delivery Method Room Air 04/08/23 19:00 Temperature Temperature Source Pulse Rate Respiratory Rate 16 Blood Pressure Blood Pressure Mean Pulse Ox Oxygen Delivery Method Positive well nourished and unkempt General Appearance ED: unkempt and NAD; Negative for pallor HEENT Reports moist mucous membranes normocephalic and atraumatic Eyes PERRL and EOMs intact bilaterally Neuro oriented x3 and CN's II-XII intact bilaterally Sensorium / Orientation: alert Motor Exam: strength 5/5 throughout Psych cooperative and speech normal Appearance: unkempt Attitude: calm and engaged Activity / Motor Behavior: fidgetting and avoids eye contact Speech: normal speech Mood & Affect: sad Thought Process: No confabulating, No flight of ideas and No illogical Thought Content: suicidality Attention / Concentration: attention grossly intact Memory / Cognition: memory grossly intact Insight: poor Judgement: poor Skin General Skin Exam: Negative for jaundice or pallor MDM MDM MDM Narrative Medical decision making narrative: Patient presents with depression. Patient initially stated that there was no suicidal ideation however after further discussion patient states that they would cut their own wrist with a scalpel at work. This is the concern that was cause for the patient to be sent in. Patient medically screened with appropriate lab work. Patient medically clear. CBC, BMP normal. hCG negative. Drug screen positive for benzodiazepines and cannabinoids. EtOH negative. Patient has been seen by crisis who is going to admit the patient to [place]. Patient has been stable here. Will be signed out to oncoming ED physician for monitoring. Impression: 1. Suicidal thoughts 2. Depression Lab Data Attestation: I reviewed the patient's lab results. Labs: Laboratory Results - last 24 hr 04/08/23 04/08/23 15:00 15:55 WBC 8.8 RBC 6.44 H Hgb 16.7 H Hct 52.1 H MCV 80.9 L MCH 25.9 L MCHC 32.1 RDW Std Deviation 42.0 RDW Coeff of Joey 14.6 Plt Count 368 MPV 8.4 Immature Gran % (Auto) 0.300 Neut % (Auto) 66.9 Lymph % (Auto) 25.3 [place] % (Auto) 6.5 Eos % (Auto) 0.7 Baso % (Auto) 0.3 Absolute Neuts (auto) 5.9 Absolute Lymphs (auto) 2.22 Nucleated RBC % 0 Sodium 140 Potassium 3.9 Chloride 108 H Carbon Dioxide 26.0 Anion Gap 6 BUN 13 Creatinine 0.93 Estim Creat Clear Calc 98.56 Est GFR (MDRD) Af Amer 93 Est GFR (MDRD) Non-Af 77 BUN/Creatinine Ratio 14.0 Glucose 85 Calcium 9.7 Serum , Qual NEGATIVE Urine Opiates Screen NEGATIVE Urine Methadone Screen NEGATIVE Ur Barbiturates Screen NEGATIVE Ur Phencyclidine Scrn NEGATIVE Ur Amphetamines Screen NEGATIVE MDMA (Ecstasy) Screen NEGATIVE U Benzodiazepines Scrn POSITIVE H [place] 0.40 L Urine Cocaine Screen NEGATIVE U Cannabinoids Screen POSITIVE H Ur Drug Screen Comment Ethyl Alcohol 5.0 Discharge Plan Triage Chief Complaint: Suicidal ED Provider: Chris Jenkins Dx/Rx/DC Orders Prescriptions: No Action hydrocodone-acetaminophen 1 TABLET tablet 1 tab PO Q6H PRN PRN (Reason: Pain) 3 Days Qty: 10 0RF lamotrigine 200 MG tablet 200 mg PO DAILY oxcarbazepine 300 MG tablet 300 mg PO BID lithium carbonate 450 MG tablet extended release 450 mg PO BID alprazolam [Xanax] 0.5 mg Tablet 0.5 mg PO DAILY PRN (Reason: Anxiety) Primary Care Provider: Jean Desai Referrals: Jean Desai MD [Primary Care Provider] -
[2023-04-08 19:00] VITALS: RESP 16
[2023-04-08 23:00] VITALS: BP 117/63; PULSE 55; RESP 16; O2SAT 97
[2023-04-08] MEDS: ALPRAZolam 0.5 MG Tablet 1 MG PO (23:34)
[2023-04-08] MEDS: Propranolol 10 MG Tablet PO (23:34)
[2023-04-08 23:44] VITALS: PULSE 70
[2023-04-08] MEDS: Lithium Carbonate 300mg Capsule 300 MG PO (23:52)
[2023-04-09 03:22] VITALS: BP 116/52; PULSE 60; RESP 18; O2SAT 98
--- NOTE | 2023-04-09 03:50 | ED.RN ---
attempt to call [facility] report, unable to at this time.
[2023-04-09 04:04] VITALS: RESP 18
[2023-04-09 05:00] VITALS: BP 95/47; PULSE 70; RESP 14; O2SAT 100
[2023-04-09] MEDS: Lithium Carbonate 300mg Capsule 300 MG PO (05:52)
[2023-04-09 06:15] VITALS: RESP 16
[2023-04-09 06:58] VITALS: BP 95/47; PULSE 70; RESP 14; TEMP 36.7; O2SAT 100
== END 2023-04-09 07:04 ==
PROVIDERS: Emergency Provider Student in an Organized Health Care Education/Training Program; PCP Family Medicine; Visit Provider Student in an Organized Health Care Education/Training Program
DX: F32.A Depression, unspecified (principal); R45.851 Suicidal ideations; F17.210 Nicotine dependence, cigarettes, uncomplicated; F41.9 Anxiety disorder, unspecified; Z79.899 Other long term (current) drug therapy; F17.290 Nicotine dependence, other tobacco product, uncomplicated
CPT/HCPCS: 80048; 80178; 80307; 80320; 84703; 85025; 87811; 99284; G0480

== ENCOUNTER 2023-04-27 08:00 | Outpatient (RCR) | payer OTHER, SELFPAY ==
--- NOTE | 2023-04-27 09:05 | BH.SGPN.GN ---
Behaviors/Verbalizations/Mental Status: [] Eye contact is good. Motor activity is appropriate. Appearance is casual. Speech is Appropriate. Mood is depressed. Affect is flat. Thoughts are linear and logical. No evidence of psychosis. Reviewed daily check in sheet and no reports of suicidal ideations or intent. Client Response/Progress/Benefit: [] Pt participated at times during group discussions. Daily symptom tracker notes 06/30 for depression and anxiety. Notes 04/02 for self-harm urges. Attentive during short video on negative automatic thoughts, CBT therapy, and challenging thoughts. This was pt's first day in the IOP program and he shared with the group his struggles and goals. Reports recent psychiatric inpatient hospitalization for depression. Shared significant isolation and avoidance due to depressive symptoms. I'm not leaving my apartment . Was unable to attend work and is currently on FMLA due to mental health impacting his ability to work. Overwhelmed and concerned that he will not be able to return to work and lose his apartment. Group provided support and offered feedback/advice for his first day/week in IOP which was beneficial. No progress noted as this was pt's first day. Will continue in IOP to maintain safety, prevent decompensation/ re-admission to psych unit, and to improve functioning to return to work. Narrative Note: []
--- NOTE | 2023-04-27 09:47 | BH.MDN_ITS ---
Multi-Disciplinary Note Note 30-min Individual: Time Started:: 09:45 Date: 04/27/23 Purpose of session/treatment goals addressed:: To gather information on pt's current stressors, symptoms, triggers, history, and tx goals. Another goal was to build rapport and provide emotional support. Eye Contact:: Good Motor Activity:: Appropriate Appearance:: Casual Speech:: Appropriate Mood:: Anxious and Depressed Affect:: Congruent Thoughts:: Linear, Logical and No evidence of hallucinations/delusions noted Staff Interventions:: rapport building, treatment planning, completed risk assessment / safety planning (completed the CSSR-S ), goal setting and other (gathered information on pt's treatment history, family history, and other psychosocial factors.) Client Response:: Pt responded well to session, open to meeting with therapist. Pt reports he has been in counseling since he was 16 years old and that his mental health issues have been life long. Pt shared he has been learning to cope with bipolar disorder for years and his mother also has bipolar disorder. Pt is estranged from his mother and he was estranged from his father, but they are currently working on mending their relationship. Pt came out as transgender 7 years ago during which time he started going by his name and went through a social transition. Pt began his medical transition 2 years ago and had top surgery last year. Pt shared his parents were not supportive of pt's transitioning and this is a contributing factor to why he does not have a relationship with his mother. Pt stated his father is becoming more open-minded, but pt is still anxious that he is being judged by his father. Pt wants to work on being less anxious about being trans in public as pt often worries about how other people perceive him. Pt has support from his younger sister and some close friends. Pt has been in a serious relationship that is long distance for the past two years, but it is not currently supportive. Pt shared stressors with his boyfriend is a contributing factor to why pt's mental health decompensated in February 2023. Pt also feels that work in contributing to his mental health worsening. Pt has history of cutting, but has not cut for two years. Pt is on medications, but he is not sure how effective the medications are right now. Pt plans to attend [facility] tomorrow and will meet with Dr. Morse. Risks/Concerns:: Pt presents with no SI today and denies SI since discharging from the hospital. However, pt did recently have a hospitalization due to suicidal ideations with plan to cut his wrists. Pt reports ability to maintain safety today. Progress Toward Goals/Plan:: Pt's first day of IOP tx pt and reports benefitting from counseling and psychiatry in the past. Pt currently endorses a depressed mood with isolation, negative thinking patterns, lack of energy and motivation, ruminations, and high anxiety. Pt reports he is experiencing a lot of anxiety about being trans in public and he has been working with his outpatient therapist on this. Pt reports his biggest stressors and triggers include work and relationship issues with his boyfriend of two years. Pt will continue IOP tx to prevent decompensation, increase use of healthy coping skills, and improve daily functioning. Time Stopped:: 10:15
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
--- NOTE | 2023-04-27 09:48 | BH.COMM_ITS ---
Communication Note Communication with Client Communication Note: Met with pt to complete initial paperwork and administer the CSSR-S screening and risk assessment. Pt is moderate-high risk per the CSSR-S as pt was hospitalized within the past month for suicidal ideations with a plan to cut his wrists with a scalpel. Pt denies any SI since discharging from the hospital. Pt reports two hospitalizations within the last year. History of one previous interrupted suicide attempt when pt was 17. Reports ability to maintain safety and no access to weapons. Pt denies any self-harm for the past two years. Pt has numerous protective factors including boyfriend, friends, and reasons for living. Discussed case with Dr. Morse and pt will be admitted to [facility] tx with a diagnosis of Bipolar I disorder, most recent episode depressed without psychosis F31.4
--- NOTE | 2023-04-27 09:48 | BH.MTP_ITS ---
[facility] Patient Information Program Physician:: Dr. Kayli Morse Primary Therapist:: Mariana CARD Psychiatric Diagnoses Psychiatric Diagnoses:: Bipolar 1 disorder, most recent episode depression, severe without psychosis (F31.4); Generalized anxiety disorder; History of bulimia nervosa Diagnosis Code(s):: F31.4 Estimated LOS Estimated LOS (in weeks):: 6 Problem/Goal #1 Problem/Goal #1 Stated Goal:: Pt will increase mood stability by reducing hopelessness, worthlessness, guilt, and suicidal ideations. Description of Barriers: stressors reported include: some family members not being supportive of pt being a transgender male, being on leave from work, relationship stress with his boyfriend, history of trauma, and numerous negative thinking patterns. Functional Impact: Pt is a 27-year-old transgender male with a history of bipolar disorder and anxiety who was referred following an inpatient psychiatric admission for suicidal ideation with plan to cut his wrists. Pt reports he has been decompensating since mid-February 2023 which was triggered by stressors with his long-distance boyfriend. Pt reports he has been isolating, missing work, and struggling to leave the house in general. Pt currently endorses a depressed mood, lack of motivation, hopelessness, worthlessness, excessive guilt, increased sleep, and loss of appetite. Pt also endorses anxiety with panic attacks, avoidance, rumination, and restlessness. Pt's symptoms are currently impacting his overall functioning and relationships. Goal Relevant Strengths/Supports: Pt is insightful, intelligent, and motivated. Pt has outpatient counseling and psychiatry. Pt's work is understanding and he is getting time off for his mental health. Objectives Objective #1: Stated Objective: Pt will learn and utilize 2-3 healthy coping strategies to better manage depressive symptoms and reduce suicidal ideations as shown by a decrease of DMS-5 symptoms for depression and SI. Interventions: Through group and individual sessions, therapist will help pt identify triggers and warning signs of depression and guilt including emotional, physical, and behavioral changes. Therapist will teach pt various coping skills to manage symptoms and give pt tangible resources to use to regulate emotions. Therapist will use cognitive restructuring techniques and help pt gain awareness of negative thoughts that reinforce guilt and depression. Therapist will provide psychoeducation on maintenance cycles and help pt learn ways to break unhealthy maintenance cycles. Therapist will help pt incorporate behavioral activation and assist pt in setting SMART goals. Discharge Criteria: Pt will have met this goal when can report learning and using at least 2 coping skills to manage depressive symptoms and reduce isolation. Additionally, pt will have met this goal when pt's DSM-5 scores for depression decrease. Target Date: 06/08/23 Review Date: 05/18/23 Status: open Objective #2: Stated Objective: Pt will identify at least 2-3 negative self-talk messages used to reinforce negative core beliefs, worthlessness, and isolation and replace thoughts with balanced, realistic messages. Interventions: Therapist will help pt identify distorted, negative beliefs about self and replace with more realistic, affirmative messages. Therapist will use CBT and DBT to help pt increase insight to the connection between thoughts, emotions, and behaviors. Therapist will encourage pt to practice thought challenging. Discharge Criteria: Pt will have achieved this goal when can verbalize at least 2 cognitive distortions and effectively replace those thoughts with affirmative messages. Target Date: 06/08/23 Review Date: 05/18/23 Status: open Problem/Goal #2 Problem/Goal #2 Stated Goal:: Will reduce intensity of anxiety and dissociation symptoms through increasing emotional regulation, mindfulness, and distress tolerance skills Description of Barriers: stressors reported include: some family members not being supportive of pt being a transgender male, being on leave from work, relationship stress with his boyfriend, history of trauma, and numerous negative thinking patterns. Functional Impact: Pt is a 27-year-old transgender male with a history of bipolar disorder and anxiety who was referred following an inpatient psychiatric admission for suicidal ideation with plan to cut his wrists. Pt reports he has been decompensating since mid-February 2023 which was triggered by stressors with his long-distance boyfriend. Pt reports he has been isolating, missing work, and struggling to leave the house in general. Pt currently endorses a depressed mood, lack of motivation, hopelessness, worthlessness, excessive guilt, increased sleep, and loss of appetite. Pt also endorses anxiety with panic attacks, avoidance, rumination, and restlessness. Pt's symptoms are currently impacting his overall functioning and relationships. Goal Relevant Strengths/Supports: Pt is insightful, intelligent, and motivated. Pt has outpatient counseling and psychiatry. Pt's work is understanding and he is getting time off for his mental health. Objectives Objective #1: Stated Objective: Pt will identify 2-3 anxiety triggers and 2 coping skills to use when feeling anxious to manage anxiety as shown by reducing DSM-5 scores for anxiety Interventions: Therapist will provide education on anxiety, avoidance behaviors, and maintenance cycles. Therapist will help pt explore personal s ymptoms and warning signs of anxiety. Therapist will teach pt coping skills to improve emotional regulation, mindfulness, and distress tolerance to help pt cope with anxiety in the moment. Discharge Criteria: Pt will have accomplished this goal when he can identify at least 2 triggers and report using 2 coping skills to manage anxiety. Additionally, pt will have accomplished this goal AEB reduction of DSM-5 scores for anxiety. Target Date: 06/08/23 Review Date: 05/18/23 Status: open Objective #2: Stated Objective: Pt will increase ability to manage stressors and anxiety by gaining 2-3 distress tolerance skills. Interventions: Through group and individual therapy, pt will learn various coping skills to help manage stress and anxiety. Therapist will utilize DBT distress tolerance skills to increase awareness and give pt tools to more effectively manage anxiety. Therapist will provide psychoeducation on emotional regulation and help pt identify unhealthy coping skills she wants to change. Discharge Criteria: Pt will have accomplished this goal when can report improved ability to manage stressors and identify at least 2 distress tolerance skills. Target Date: 06/08/23 Review Date: 05/18/23 Status: open
--- NOTE | 2023-04-27 10:15 | BH.SGPN.GN ---
Behaviors/Verbalizations/Mental Status: []Eye contact is fair. Alert and oriented. Motor activity is appropriate. Appearance is casual, somewhat disheveled. grooming is appropriate. Speech is Appropriate. Mood is anxious. Affect is constricted. Thoughts are linear and logical. No evidence of psychosis or hallucinations. Client Response/Progress/Benefit: []Client engaged in group session AEB listening to others, taking notes throughout, and nodding head to others comments. Client's first day in group. Group attentive during psychoeducation about emotion regulation and dysregulation. Appeared to connect with scenarios reviewed in group on emotion regulation vs dysregulation. Engaged in activity, reporting he stepped outside comfort zone and was able to stay present. Client benefited from session by gaining an increased understanding on the importance of managing emotions. Client to continue IOP to improve daily functioning, increase healthy coping, and prevent decompensation.
--- NOTE | 2023-04-27 11:15 | BH.SGPN.GN ---
Behaviors/Verbalizations/Mental Status: []Pt alert and oriented, casually dressed and fairly groomed. Eye contact fair. Motor activity appropriate. Speech within normal limits. Affect constricted, mood anxious. Thoughts linear, logical, no signs of hallucinations or delusions. Client Response/Progress/Benefit: [] Pt engaged in session AEB Pt listening attentively to peers and providing input. Attentive during psychoeducation on 4 zones of regulation. Pt able to identify feelings and behaviors for each zone. Pt identified coping skills one can use to support self in each zone. Identified one skill from each zone he can practice which included: reach out to support, get the hard tasks complete, and breathing exercises. Benefited from increased education on zones of regulation or stages of alertness for emotions and healthy coping skills to use for each zone. Will continue IOP tx to improve daily functioning, increase healthy coping, and prevent decompensation.
--- NOTE | 2023-04-28 09:25 | BH.NA ---
Physical Data Vital Signs Pulse Rate: 73 Blood Pressure: 130/80 Height/Weight Height: 1.7 m Weight:: 79.379 kg Weight in Pounds: 175.0 lbs Current Medication Compliance Medication Compliance Do you take your medication as prescribed?: Yes Nutritional History Appetite Nutritional Instructions: Describe your appetite:: Good Additional nutritional information:: Client states appetite was decreased when hospitalized, but has returned to normal. Client denies recent change in weight. Functional Assessment Sleep Pattern Describe any problems with sleeping: Client states he sleeps 8-10 hours per day. Sensory/Communication Assess Vision Problems Do you have any vision problems?: Glasses Communication Problems Do you have difficulty understanding what people are saying?: No Medical Problems/History Pain Assessment Do you have acute or chronic pain?: No Surgical History Surgical History Have you had any surgeries? If so, list type and date:: Yes (double mastectomy 07/2022) Substance Abuse Substance Abuse Please describe substance abuse in the last 30 days:: Client reports social alcohol use rarely. Client states he has been vaping 1.5 years, and smoked cigarettes for 6 months prior to that. Client states he uses marijuana 2-3 times per week. Client states he drinks coffee about 3 times per week. Mental Status Summary Mental Status Significant Findings/Observations on Appearance and Mood:: Client is alert and oriented x 4. Client is casually groomed with good hygiene. Client is cooperative with assessment. Client makes good eye contact. Client's voice has normal rate and volume. Client has restricted affect. Client makes logical associations and has normal processing. Client denies delusions/hallucinations. Client denies SI since being discharged from the hospital 04/16/23. Suicide Assessment Suicidal Ideation Are you currently or have you been suicidal in the past?: Yes Suicidal Intentional Rating Scale (SIRS): Suicidal thoughts (past) Physician Notification Past Psychiatric History MH Treatment Hx Past Psychiatric Medications:: Lamictal (is now on it again). Client states he does not remember the names of the medications he has been on, but states he has tried several antipsychotics but has been unable to take them due to side effects. Age of first mental health symptoms: Client states he started counseling around age 16, and states he either started medication for mental health at that time or age [age], he can not remember. Client states he was diagnosed with bipolar disorder around age 22. Describe (age, circumstance, etc) any past hospitalizations: May 2022 for depression and SI, 04/08-04/16- at [facility] for depression and SI. Current providers for mental health treatment (counselor, psychiatrist, supervisor case loading, etc.): Sandy snider for counseling, Mumtaz Solorio at [facility] for psychiatry Fall Risk Assessment Age Age: Less than 60 Mental Status Mental Status: Willing & able to ask for assistance when needed Physical Status Physical Status: No problems Impairments Impairments: None Elimination Elimination: Continent AND independent Gait or Balance Gait or Balance: Walks independently Hx of Falls History of falls in the past 6 months: No known history Medications/Substances Psychotropics:: Antipsychotics Medications/substances used within the past 24 hours or ordered to administer: 1-2 of the medications/substances listed above Total Score Total Points:: 1 RN Summary of Impressions Impressions Recommendations Impressions: Psychiatric Issues: 1. Bipolar 1 disorder, most recent episode depression, severe without psychosis (F31.4) 2. Generalized anxiety disorder 3. History of bulimia nervosa Level of Care How do the client's current symptoms and functional deficits support need for this level of care?: Client was referred to IOP by his outpatient psychiatry provider after a recent hospitalization. Client was recently hospitalized at [facility] for depression and SI. Client states he has been having increased depression and isolation since February 2023 when he asked his long-distance partner to come stay with him for the holidays and the partner did not due to their own mental health. Client states he started isolating after that with decreased ADL's and decreased motivation. Client had started having thoughts of SI, so was seen by crisis and subsequently admitted to [facility]. Client denies SI since discharge from hospital. Client does report still feeling very unmotivated and wanting to isolate. IOP will promote gains and prevent further decompensation while providing social support and skills training.
[2023-04-28 09:45] VITALS: BP 130/80; PULSE 73
--- NOTE | 2023-04-28 10:15 | BH.SGPN.GN ---
Behaviors/Verbalizations/Mental Status: []Pt alert and oriented, casually dressed and groomed. Eye contact good. Motor activity appropriate. Speech within normal limits. Affect congruent, mood anxious. Thoughts linear, logical, no signs of hallucinations or delusions. Client Response/Progress/Benefit: [] Pt receptive of session, actively engaged throughout AEB taking notes, providing input, and contributing in small group discussion. Appeared to connect with group topic of cognitive distortions and the impact of thought patterns on mental health, coping behaviors, and relationships. Pt connected most with distortions of labeling, overgeneralizing, and disqualifying the positives. Pt able to identify how these distortions impact functioning. Pt appeared to benefit from gaining insight on distorted thinking patterns and how this impacts overall mental health. Will continue IOP tx to prevent decompensation, improve daily functioning, and increase use of healthy coping skills. Narrative Note: []
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
--- NOTE | 2023-04-28 12:49 | BH.DR.ITP ---
Initial Treatment Plan Patient Information Visit Information: ADMISSION DATE: EXPECTED LOS: 4-6 weeks Problems/Symptoms Problem #1:: Mood instability Symptom:: Sadness, hopelessness, worthlessness, guilt, anhedonia, low energy, decreased concentration, recent passive thoughts of , recent suicidal ideation Problem #2:: Anxiety Symptom:: Worry, rumination, avoidance, dissociation
--- NOTE | 2023-04-28 14:24 | BH.MDN ---
Multi-Disciplinary Note Note 45-min Individual: Time Started:: 11:15 Date: 04/28/23 Purpose of session/treatment goals addressed:: To gather information on pt's current stressors, symptoms, triggers, history, and tx goals. Another goal was to build rapport and provide emotional support. Eye Contact:: Good Motor Activity:: Appropriate Appearance:: Casual Speech:: Appropriate Mood:: Anxious and Depressed Affect:: Congruent Thoughts:: Linear, Logical and No evidence of hallucinations/delusions noted Staff Interventions:: thought challenging, psychoeducation on: (anxiety and anxiety maintenance cycles.), CBT techniques, rapport building, strengths perspective, treatment planning and goal setting Client Response:: Pt responded well to session, open to meeting with therapist. Pt met with Dr. Morse today and no medication changes were made. Therapist met with pt yesterday as well and today's focus was on pt's tx goals. Pt reported his biggest stressor right now is his anxiety about returning to work. Pt shared he has enjoyed his job for many years, but it has become more stressful within the last year and once pt started taking time off he became severely anxious about going back. 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 Pt has a lot of worries about being judged and he has a lot of negative thoughts of self. Pt stated his treatment goals as: getting back enjoyment of going to work, less anxiety and dread about work, internal motivation, less guilt/shame, and being more comfortable getting out of bed and out of the house again. Pt shared he thought his isolation was due to depression, but pt is learning that a lot of his isolation is do to anxiety and avoidance. Pt receptive to learning about anxiety and maintenance cycles. Pt connected with how avoidance exacerbates anxiety and how creating small exposure goals can help pt reduce anxiety and gain back confidence. Risks/Concerns:: Pt denies any suicidal ideations as of 04/28/23. No report of passive thoughts of . Progress Toward Goals/Plan:: Pt's first week of IOP tx and reported it as been going well. Pt has been in therapy throughout his life and has found it helpful. Pt is currently off work on FMLA and has short-term disability. Pt is anxious about returning to work especially since he is only written off until the middle of April. Pt currently endorses severe anxiety with avoidance, excessive worry, and panic. Pt also reports negative thinking patterns with constant fear of judgement from others. Pt also endorses lack of motivation, lack of energy, and guilt. Pt will continue IOP tx to prevent decompensation, help work-related functioning, and improve mood stability. Time Stopped:: 11:55
--- NOTE | 2023-05-05 11:15 | BH.MDN ---
Multi-Disciplinary Note Note 45-min Individual: Time Started:: 09:30 Date: 05/05/23 Eye Contact:: Good Motor Activity:: Appropriate Appearance:: Casual Speech:: Appropriate Mood:: Anxious and Depressed Affect:: Congruent Thoughts:: Linear, Logical and No evidence of hallucinations/delusions noted Staff Interventions:: thought challenging, psychoeducation on: (appropriate and inappropriate guilt; negative core beliefs), CBT techniques, strengths perspective, taught coping skills and other (homework given to identify his what is appropriate and inappropriate guilt.) Time Stopped:: 10:10
--- NOTE | 2023-05-26 12:16 | PCM.BH.PN ---
Progress Note Progress Note: History of Present Illness/Interim History: The patient is a 27-year-old biological female who identifies as a transgender male with a history of bipolar disorder and anxiety who is seen in follow-up at the [facility] behavioral health [facility]. I last saw the patient 2 weeks ago and the patient refused any medication changes at that time. The patient has had increased stressors as about 1 week ago his long-distance boyfriend broke up with him. Patient states his symptoms worsened somewhat and he has now a decreased appetite and had thoughts of self-harm about 5 days ago but did not cut himself. He denies suicidal ideation or plan but admits that he has had passive thoughts of since the break-up. He denies also homicidal ideation, hallucinations or delusions. His anxiety has worsened and he is having several panic attacks a day now since the break-up. He is sleeping about 5 to 6 hours a night which is a little less than before the break-up. He states that he would like to consider adding medication or changing as he does not see his outpatient psychiatrist until June. Current Psychiatric Medications: [] [place] carbonate ER 600 mg p.o. nightly; Lamictal 50 mg p.o. daily; Xanax 0.5 mg as needed for panic attacks; propranolol 10 mg p.o. daily Mental Status Examination: [] The patient is a 27-year-old biological female who identifies as a transgender male and is seen dressed as a male and is male in appearance overall and has a thin facial griffith. Voice is deep for a female. Tattoos and piercings remain unchanged from initial visit. He is casually dressed and groomed with good hygiene and ambulatory with a normal gait. There is no psychomotor agitation or retardation. He is cooperative and pleasant during the interview. Speech is normal rate and rhythm and fluent with no pressure. Eye contact is good. Mood is anxious and depressed. Affect is constricted. Thought process is goal-directed and organized. Thought content: There is evidence of passive thoughts of but there is no evidence of suicidal ideation, plan for suicide, homicidal ideation, hallucinations or delusions. There is evidence of recent thoughts of self-harm but these have resolved. Reality testing is intact. Judgment is intact. Insight: Fair. Diagnoses: [] 1. Bipolar 1 disorder, most recent episode depression, severe without psychosis (F31.4) 2. Generalized anxiety disorder 3. History of bulimia nervosa 4. Strong cluster B traits 5. Primary support and work issues Plan: [] The patient will continue the IOP in behavioral health at [facility] as the structure, support, education and group therapy will hopefully prevent worsening of the patient's symptoms that could require hospitalization. He felt safe during the interview and if it anytime he does not feel safe he agrees to go to the emergency room or let us know. He agrees to increase his Lamictal to 100 mg p.o. daily. In addition he agrees to add Seroquel 25 mg p.o. at bedtime for 2 days and then increase to 50 mg p.o. at bedtime to help with bipolar depression, and anxiety. He understands that with his history of having severe EPS on an antipsychotic 1 time in the past that the quetiapine or Seroquel has the lowest incidence of EPS and so hopefully he will do well on it. I will see the patient in follow-up in 1 week and he will continue to follow-up with his outpatient providers. He will let us know immediately if he has any side effects on the Seroquel.
== END 2023-04-28 23:59 ==
LOC: BHIOP 08:00
PROVIDERS: PCP Family Medicine; Referring Provider Psychiatry & Neurology Psychiatry; Visit Provider Psychiatry & Neurology Psychiatry
DX: F31.4 Bipolar disorder, current episode depressed, severe, without psychotic features (principal); F41.1 Generalized anxiety disorder; Z86.59 Personal history of other mental and behavioral disorders
CPT/HCPCS: S9480; 90832; 90834; 90853

== ENCOUNTER 2023-04-29 07:51 | Outpatient (RCR) | payer OTHER, SELFPAY ==
[2023-04-29 01:00] VITALS: BP 130/80; PULSE 73
--- NOTE | 2023-05-03 09:00 | BH.SGPN.GN ---
Behaviors/Verbalizations/Mental Status: [Patient was alert and oriented, appropriately dressed and groomed. Eye contact was good, motor activity normal, speech within normal limits. Affect congruent, mood content. Thoughts linear, logical, no signs of hallucinations or delusions. Reviewed Patients symptom tracker and the patient reports depressed mood, anxiety/panic attacks, agitation/irritability/anger, self-harm urges, and thoughts/risk of suicide within normal limits.] Client Response/Progress/Benefit: [Patient was engaged and open to the discussion. Patient reported his mood to be ?depressed?. Patient shared that his stressor is that he is taking his 14-year-old cat to the vet today because he is sick. Patient said he fears that he may have to put him down. Patient shared his first win is that he did opposite action and came to group today. He said that he was more likely not to take his cat to the vet if he missed group although he was feeling depressed. Patients second win is that he had a good weekend and went to a musical with his friend. Patient was interactive and respectful with other group members about their mental wins and stressors. Patient benefited from the discussion by listening to feedback and giving input on his peer?s stressors and mental health wins. Patient will continue with IOP treatment to help develop healthy skills, promote mood stability, and improve distress tolerance. ] Narrative Note: []
--- NOTE | 2023-05-03 10:10 | BH.SGPN.GN ---
Behaviors/Verbalizations/Mental Status: []Pt alert and oriented, causally dressed and groomed. Eye contact fair. Motor activity appropriate. Speech within normal limits. Affect constricted, mood anxious. Thoughts linear, logical, no signs of hallucinations or delusions. Client Response/Progress/Benefit: [] Pt was actively engaged, providing input at times, and taking notes throughout session. Connected with the topic of pitfalls and listened to group discussion on internal and external barriers that prevent from choosing a healthier path to mental wellness. Group worked together to identify examples of personal internal pitfalls and pt identified theirs as shutting down, isolation, avoidance, and not communicating. Pt benefited from group as pt learned to better identify and normalize potential barriers to improving mental health symptoms. Pt also gained awareness of the difference between external triggers and self-sabotaging behaviors. Pt will continue IOP tx to improve daily functioning, increase healthy coping, and prevent decompensation.
--- NOTE | 2023-05-03 11:10 | BH.SGPN.GN ---
Behaviors/Verbalizations/Mental Status: []Pt alert and oriented, casually dressed and groomed. Eye contact good. Motor activity appropriate. Speech within normal limits. Affect constricted, mood anxious. Thoughts linear, logical, no signs of hallucinations or delusions. Client Response/Progress/Benefit: [] Pt receptive of session, engaged throughout AEB actively contributing and listening to discussion, as well as taking notes. Pt participated in the experiential activity and processed with group how their emotions, perspective, and reactions positively and negatively impacted the outcome. Pt identified pitfalls they struggle with and shared wanting to work on pitfall of people pleasing and all or nothing thinking by checking in with himself before agreeing and setting small realistic goals. Benefited from identifying personal pitfalls and strategies to overcome these pitfalls. Will continue IOP tx to prevent decompensation, improve daily functioning, and reduce negative thinking patterns. ? Narrative Note: []
--- NOTE | 2023-05-05 10:10 | BH.SGPN.GN ---
Behaviors/Verbalizations/Mental Status: []Pt alert and oriented, casually dressed and groomed. Eye contact good. Motor activity appropriate. Speech within normal limits. Affect congruent, mood depressed. Thoughts linear, logical, no signs of hallucinations or delusions. Client Response/Progress/Benefit: [] Pt was an active?participant in small group discussion. Pt?s group worked together to identify benefits of healthy relationships which included insight, accountability, and guidance. Group identified factors that lead to unhealthy relationships. Pt?s personal factors included trauma, codependency, and shame and embarrassment. Actively participated in group experiential activity and expressed ideas to group. Benefited from increased insight and awareness of benefits of healthy relationships and factors that contribute to unhealthy relationships. Will continue IOP tx to prevent decompensation, gain healthy coping skills, and reduce negative self-talk. Narrative Note: []
--- NOTE | 2023-05-05 11:15 | BH.SGPN.GN ---
Behaviors/Verbalizations/Mental Status: [] Client alert and oriented, casually dressed and groomed. Eye contact good. Motor activity appropriate. Speech within normal limits. Affect congruent, mood depressed and anxious. Thoughts linear, logical, no signs of hallucinations or delusions. Client Response/Progress/Benefit: [] Client responded well to session, engaged and taking notes throughout. Worked with group to connect components of the experiential activity with characteristics of healthy and unhealthy relationships. Attentive during psychoeducation about characteristics of healthy, unhealthy, and abusive relationships. Client stated that within the relationship with his boyfriend he does well with mutual respect and communication. Client reported an area he would like to work on as independent decision making to reduce codependence. Appeared to benefit from identifying the current healthy relationship attributes and an area client wants to work on to build healthier relationships. Client to continue IOP to increase healthy coping skills, stabilize mood, and prevent decompensation. Narrative Note: []
--- NOTE | 2023-05-05 11:18 | BH.MDN ---
Multi-Disciplinary Note Note 45-min Individual: Time Started:: 09:30 Date: 05/05/23 Purpose of session/treatment goals addressed:: To work on goal #1 of pt's tx plan and to identify homework/ goals for the week. Eye Contact:: Good Motor Activity:: Appropriate Appearance:: Casual Speech:: Appropriate Mood:: Anxious and Depressed Affect:: Congruent Thoughts:: Linear, Logical and No evidence of hallucinations/delusions noted Staff Interventions:: thought challenging, motivational interviewing, psychoeducation on: (guilt), CBT techniques, strengths perspective and goal setting Client Response:: Pt responded well to session, open to meeting with therapist. Pt reports his first week of IOP went well and pt is hopeful that he will gain skills. Pt shared about his history last session and discussed how one of the things he really struggles with is negative thinking and guilt. Pt gave examples of how he feels guilty about being away from work, guilty about people wanted to be helpful towards him, and guilty about his avoidance. Pt connected with having double-standards which allows pt to be understanding to others, but highly critical of himself. Receptive to gentle thought challenging of this. Pt reports he also struggles with all or nothing thinking and lack of motivation. Pt stated he is currently struggling with lack of motivation from his depression and he knows what to do but I hate when people tell me just do it. Pt laughed and shared that this is frustrating, but using opposite action has help in the past when pt was getting over a break up. Pt receptive to goal setting for the week to engage in some self-care practices and identified what is appropriate guilt vs inappropriate guilt in his life right now. Risks/Concerns:: Pt denies any suicidal ideations, plan, or intent as of 05/05/23. Pt is future oriented and has plans for the weekend. Progress Toward Goals/Plan:: Pt continues to make progress towards his tx goals AEB pt's consistent attendance and engagement in group. Pt is open to setting goals and wants to work on combatting his negative thinking patterns and inappropriate guilt. Pt's symptoms of depression are ongoing and he is struggling with rumination, isolation, excessive guilt, and negative self-talk. Pt's anxiety continues to impact his functioning as well as pt has not been able to return emails, go to stores, and he is very anxious about returning to work. Pt will continue IOP tx to prevent decompensation, improve daily functioning, and increase self-compassion. Time Stopped:: 10:20
--- NOTE | 2023-05-06 09:05 | BH.SGPN.GN ---
Behaviors/Verbalizations/Mental Status: [] Eye contact is good. Motor activity is appropriate. Appearance is casual. Speech is Appropriate. Mood is depressed. Affect is flat. Thoughts are linear and logical. No evidence of psychosis. Reviewed daily check in sheet and no reports of suicidal ideations or intent. Client Response/Progress/Benefit: [] Pt was an active participant in group discussion. Attentive. Provided appropriate feedback. Daily symptom tracker notes /5 for depression and 3/5 for anxiety. Able to identify mental health wins in the past day stating that he cooked and cleaned even though he did not want to. Utilizing oppositive-action and thought challenging to get things done which is helping to trigger motivation and energy. Overall reports feeling stuck as he is extremely anxious about his ability to ever return to work due to his mental health struggles. Significant fear of failure as he attempted to return and failed in the recent past. These thoughts lead to anxiety, depression, hopelessness, and feeling like a failure . Beneifted from group support, encouragement, and feedback. Will continue in IOP to prevent decompensation/re-afmission to psych unit, maintain safety, and improve functioning to return to work. Narrative Note: []
--- NOTE | 2023-05-06 11:15 | BH.SGPN.GN ---
Behaviors/Verbalizations/Mental Status: []Pt alert and oriented, casually dressed and groomed. Eye contact good. Motor activity appropriate. Speech within normal limits. Affect congruent, mood anxious and euthymic. Thoughts linear, logical, no signs of hallucinations or delusions. Client Response/Progress/Benefit: [] Pt receptive to session AEB contributing to small group discussion, as well as listening attentively to others, and taking notes. Worked with group to brainstorm the positive and negative aspects of stress on physical and mental health. Group did well to identify the benefits of stress as well as the impact of distress on performance, relationships, and mental health. Pt identified their personal top stressors as: issues with daily functioning, his cat?s health, and work. Pt seemed to benefit from increased awareness of current stressors and impact stress has on mental health. Pt will continue IOP tx to improve work-related functioning, improve mood stability, and gain self-confidence. Narrative Note: []
--- NOTE | 2023-05-07 11:10 | BH.SGPN.GN ---
Behaviors/Verbalizations/Mental Status: []Eye contact is good. Motor activity is appropriate. Appearance is casual. Speech is Appropriate. Mood is anxious. Affect is congruent. Thoughts are linear and logical. No evidence of psychosis. Client Response/Progress/Benefit: []Pt was an active participant in group discussions and experiential activity. Attentive during psychoeducation on the 4 A's (Avoid, adapt, alter, accept) of coping with stress. Shared that he would benefit most from working on avoiding unnecessary stressor. Was able to identify the connection between the experiential activity and utilization of stress management skills. Benefited from increased awareness of stress management strategies. Will continue in IOP to decreasing avoidance of anxious situations, challenge distortions, and prevent decompensation.
--- NOTE | 2023-05-10 09:00 | BH.SGPN.GN ---
Behaviors/Verbalizations/Mental Status: [Patient was alert and oriented, appropriately dressed and groomed. Eye contact was good, motor activity normal, speech within normal limits. Affect congruent, mood content. Thoughts linear, logical, no signs of hallucinations or delusions. Reviewed Patients symptom tracker and the patient reports low/moderate in anxiety/panic attacks and low in depressed mood. The patient does not report symptoms of agitation/irritability/anger, self-harm urges, or thoughts/risk of suicide. ] Client Response/Progress/Benefit: [Patient was engaged and open to the discussion. Patient reported his mood to be ?restless?. Patients first win was that he took his medication yesterday. Patient admitted that he has trouble taking his medication if he is out of only one of his pills, he typically doesn?t take any of them. Patients second win was that this weekend he helped one of his friends dye her hair. Patients stressor was that he had a panic attack yesterday while driving which he said he hasn?t had one in a few months. Patient was interactive and respectful with other group members about their mental wins and stressors. Patient benefited from the discussion by listening to feedback and giving input on his peer?s stressors and mental health wins. Patient will continue with IOP treatment to help develop healthy skills, promote mood stability, and improve distress tolerance. ] Narrative Note: []
--- NOTE | 2023-05-10 10:10 | BH.SGPN.GN ---
Behaviors/Verbalizations/Mental Status: []Pt alert and oriented, casually dressed and groomed. Eye contact good. Motor activity appropriate. Speech within normal limits. Affect congruent, mood anxious, depressed. Thoughts linear, logical, no signs of hallucinations or delusions. Client Response/Progress/Benefit: []Pt was an active participant in activity and taking notes during group discussion. Attentive during psychoeducation on coping skills, why people use unhealthy coping skills, and how to replace unhealthy coping skills. Pt shared he personally struggles with avoidance and sleeping when anxious. Group came up with list of negative coping skills including not asking for help, avoidance, isolating, and sleeping. Group discussed the effects of how negative coping skills can impact mental health in a negative way. Benefited from increased understanding of unhealthy coping skills and the need for developing healthy internal and external coping skills. Pt will continue IOP tx to decrease safety behaviors, continue improving mood stability, and prevent decompensation. Narrative Note: []
--- NOTE | 2023-05-10 11:10 | BH.SGPN.GN ---
Behaviors/Verbalizations/Mental Status: []Pt alert and oriented, casually dressed and groomed. Eye contact fair. Motor activity appropriate. Speech within normal limits. Affect congruent, mood anxious. Thoughts linear, logical, no signs of hallucinations or delusions Client Response/Progress/Benefit: []Pt responded well to session, taking notes and contributing. Group discussed the different categories of coping skills which included distraction, emotional release, grounding, self-love, and thought challenging.? Pt participated in creating a coping skills ?menu? from the five categories of coping skills. Pt's coping skill menu included:reading, talk it out, yoga, positive affirmations, and GLAD journal. Appeared to benefit from increasing repertoire of healthy coping skills. Will continue IOP tx to promote use of healthy coping skills, improve confidence, and prevent decompensation.
--- NOTE | 2023-05-12 09:00 | BH.SGPN.GN ---
Behaviors/Verbalizations/Mental Status: [Patient was alert and oriented, appropriately dressed and groomed. Eye contact was good, motor activity normal, speech within normal limits. Affect congruent, mood content. Thoughts linear, logical, no signs of hallucinations or delusions. Reviewed Patients symptom tracker and the patient reports low/moderate in anxiety/panic attacks, and low in depressed mood. The patient does not report symptoms of agitation/irritability/anger, self-harm urges, or thoughts/risk of suicide.] Client Response/Progress/Benefit: [Patient was engaged and open to the discussion. Patient reported his mood to be ?Hopeful?. Patients first win is that he took himself out to lunch yesterday. This was uncomfortable for him because he explained that it felt awkward to sit in a restraint by himself and eat but the meal was good. Patients second win is that he has reconnected with an old friend he had not been able to see in awhile due to conflicting schedules. Patients stressor is that he has felt more anxious in the past week because of a trigger he experienced last week. Patient was interactive and respectful with other group members about their mental wins and stressors. Patient benefited from the discussion by listening to feedback and giving input on his peer?s stressors and mental health wins. Patient will continue with IOP treatment to help develop healthy skills, promote mood stability, and improve distress tolerance. ] Narrative Note: []
--- NOTE | 2023-05-12 10:00 | BH.SGPN.GN ---
Behaviors/Verbalizations/Mental Status: [] Client alert and oriented, casually dressed and groomed. Eye contact good. Motor activity appropriate. Speech within normal limits. Affect congruent, mood euthymic. Thoughts linear, logical, no signs of hallucinations or delusions. Client Response/Progress/Benefit: [] Client responded well to session AEB sharing and listening attentively to others. Group provided examples of benefits of having social support, including: ability to process emotions with, security, and community. Client also participated in group discussion regarding the barriers to accessing support including personal examples like: self sabotage, lack of communication, and over using certain supports. Client participated in experiential activity illustrating the impact communication, boundaries, and patience play in creating healthy support systems. Client appeared to benefit from increased knowledge of the benefits of social support and greater self-awareness. Will continue IOP tx to reduce negative self-talk and improve overall functioning. Narrative Note: []
--- NOTE | 2023-05-12 12:01 | PCM.BH.PN_ITS ---
Progress Note Progress Note: History of Present Illness/Interim History: The patient is a 27-year-old biological female who identifies as a transgender male with a history of bipolar disorder and anxiety who is seen in follow-up today at the [facility] behavioral health [facility]. I last saw the patient 2 weeks ago and at that time no medication changes were made today as the patient refused any medication changes. The patient states that he has been doing okay but has had a few setbacks over the last 2 weeks. He has had a text from his ex- which made him feel guilty and since that text he has been going downhill . He has been isolating and canceled some plans to socialize this weekend. He had a panic attack 2 days ago and this was his first 1 in several months. He feels he is learning valuable skills in the IOP and feels he can cope with his aunts anxiety better since starting the IOP. His depressed mood or severity of his anxiety has not really changed. He admits to sadness, binge eating many nights, low energy and worsening guilt the last 2 weeks. He does state that he feels more hopeful and less worthless and he has been enjoying reading more lately. Sleep is still okay at 8 to 10 hours a night. He denies passive thoughts of , suicidal ideation, homicidal ideation, hallucinations, delusions or symptoms of angy. Current Psychiatric Medications: [] Cache carbonate ER 600 mg p.o. nightly; Lamictal 50 mg p.o. daily; Xanax 0.5 mg as needed for panic attacks; propranolol 10 mg p.o. daily Mental Status Examination: [] The patient is a 27-year-old biological female who identifies as a transgender male and is seen dressed as a male and is male in appearance overall due to a growth of a thin facial griffith. Voice remains deep for a female. Tattoos and piercings remain unchanged from last visit. He is casually dressed and groomed with good hygiene and ambulatory with a normal gait. There is no psychomotor agitation or retardation. He is cooperative during the interview. Speech is normal rate and rhythm and fluent with no pressure. Eye contact is good. Mood is anxious and depressed. Affect is constricted. Thought process is goal-directed and organized. Thought content: There is no evidence of passive thoughts of , suicidal ideation, plan for suicide, homicidal ideation, hallucinations or delusions. Reality testing is intact. Judgment is intact. Insight: Limited but some present. Diagnoses: [] 1. Bipolar 1 disorder, most recent episode depression, severe without psychosis (F31.4) 2. Generalized anxiety disorder 3 history of bulimia nervosa 4. Strong cluster B traits 5. Primary support and work issues Plan: [] Patient will continue the IOP in behavioral health at [facility] as the structure, support, education and group therapy will hopefully prevent worsening of the patient's symptoms. He felt safe during the interview and if it anytime he does not feel safe he agrees to go to the emergency room or to call us. He again refuses any medication changes and wishes to wait until he sees his outpatient provider to consider increasing the Lamictal to 100 mg or adding any kind of medication for bipolar depression. He will continue to follow-up with his outpatient providers and I will see the patient in follow-up while in the IOP.
--- NOTE | 2023-05-12 15:03 | BH.MDN_ITS ---
Multi-Disciplinary Note Note 45-min Individual: Time Started:: 11:05 Date: 05/12/23 Purpose of session/treatment goals addressed:: To work on building distress tolerance skills and utilizing self-compassion. Eye Contact:: Good Motor Activity:: Appropriate Appearance:: Neat Speech:: Appropriate Mood:: Euthymic Affect:: Congruent Thoughts:: Linear, Logical and No evidence of hallucinations/delusions noted Staff Interventions:: thought challenging, motivational interviewing, CBT techniques, strengths perspective, goal setting, taught coping skills (distress tolerance skills including Delay, Distract, Decide.) and other (used problem- solving techniques to address pt's current stressors.) Client Response:: Pt responded well to session, open to meeting with therapist. Pt reports he is doing better in some areas such as less avoidance and pushing himself out of his comfort zone. However, pt stated he feels that he is doing a lot of numbing lately and pt wants to change these behaviors. Pt shared he often numbs by binge eating, binge watching shows, smoking weed, and vaping. Pt stated he notices he has been doing most of these at night and this leads to worsening mental health symptoms because pt feels stressed, guilty, and frustrated with himself after. Discussed things pt could address to help combat these numbing coping skills. Pt feels that he would respond well to setting rules with himself such as I can watch TV after I do these tasks. Pt receptive to learning about habit stacking as well as Delay, Distract, Decide to help pt change behaviors. Pt stated he feels his binge eating would also decrease if pt got back into his habit of going to the grocery store weekly instead of ordering food. Pt used to go to the grocery store every Wednesday, but when pt's anxiety became too severe he began avoiding it all together. Pt wants to get back into some of his habits which will hopefully help pt when he transitions back to work. Pt's goal for the weekend is to go grocery shopping once and practice DDD. Risks/Concerns:: Pt denies any active SI, plan, or intent as of 05/12/23. Progress Toward Goals/Plan:: Pt continues to report progress towards his tx goals. Pt reports he is learning valuable skills in the IOP and feels he can cope with his anxiety better since starting the IOP. Pt states that he feels more hopeful and less worthless and he has been enjoying reading more lately. However, pt continues to endorse a depressed mood with isolation, binge eating, excessive guilt, rumination, and avoidance. Pt reports his anxiety continues to impact his functioning and has not decreased much. Pt reported to therapist today that he no longer wants to see a therapist virtually and wanted referrals. Pt will continue IOP tx to prevent decompensation, improve daily functioning, and increase distress tolerance skills. Time Stopped:: 11:50
--- NOTE | 2023-05-13 09:05 | BH.SGPN.GN ---
Behaviors/Verbalizations/Mental Status: [] Eye contact is good. Motor activity is appropriate. Appearance is casual. Speech is Appropriate. Mood is depressed. Affect is congruent. Thoughts are linear and logical. No evidence of psychosis. Reviewed daily check in sheet and no reports of suicidal ideations or intent. Client Response/Progress/Benefit: [] Pt participated at times during the group discussion. Attentive. Daily symptom tracker notes 5 for anxiety and 5 for depression. Shared with the group some good news and how this benefited his mental health. Opposite action recently which led to increase energy and completed tasks. Insight on how this skill and others if used consistently can improve daily functioning. Believes that IOP has helped change his perspective. He is also contemplating a medication addition that both program and outpatient psychiatrists have recommended. Remains apprehensive to start a new medications due to previous experiences. Over feels more calm and hopeful, however continues to report isolation, depression, and stress related to current functioning and fear of returning to work. Progress noted per pt report. Benefited from group support, encouragement, and feedback. Will continue in IOP to maintain safety, prevent decompensation, stabilize mood, and improve functioning to return to work. Narrative Note: []
--- NOTE | 2023-05-13 10:05 | BH.SGPN.GN ---
Behaviors/Verbalizations/Mental Status: []Pt alert and oriented, neatly dressed and groomed. Eye contact good. Motor activity appropriate. Speech within normal limits. Affect congruent, mood content. Thoughts linear, logical, no signs of hallucinations or delusions. Client Response/Progress/Benefit: [] Pt was engaged and open to the discussion and appeared to respond well to the group. Pt used active listening and gave feedback during group discussion. Group discussed what contributes to a person?s perspective and how perspective can positively or negative impact mental health treatment. Pt shared their perspective today is more hopeful and realistic which is leading to pt feeling more motivated and more likely to be social. Pt appeared to benefit from increasing awareness of different perspectives and how they can affect mental health. Pt will continue IOP treatment to improve daily functioning, reduce negative self-talk, and continue to improve emotional regulation skills. ? Narrative Note: []
--- NOTE | 2023-05-13 11:15 | BH.SGPN.GN ---
Behaviors/Verbalizations/Mental Status: []Pt alert and oriented, casually dressed and groomed. Eye contact good. Motor activity appropriate. Speech within normal limits. Affect congruent, mood euthymic. Thoughts linear, logical, no signs of hallucinations or delusions. Client Response/Progress/Benefit: []Pt was attentive and contributed to group discussion. Pt worked with group to identify strategies that can help with challenging negative perspective. Pt completed strengths exploration worksheet, identifying curiosity, love, humor, honesty, open mindedness, and empathy as personal strengths. Pt able to acknowledge how these strengths are helping pt and can continue to help pt in mental health journey. Pt identified wanting to work on reminding himself to treat himself the way he treats others as a means of perspective challenging. Benefited from identifying personal strengths and strategies for enhancing use of identified strengths. Pt will continue IOP tx to promote mood stability, increase consistent application of healthy coping skills, improve behavior activation, and prevent decompensation. Narrative Note: []
--- NOTE | 2023-05-18 09:00 | BH.SGPN.GN ---
Behaviors/Verbalizations/Mental Status: [] Pt alert and oriented, neatly dressed and groomed. Eye contact good. Motor activity appropriate. Speech within normal limits. Affect congruent, mood dysthymic. Thoughts linear, logical, no signs of hallucinations or delusions. Reviewed pt?s symptom tracker, no risk for suicidal ideation, plan, or intent 05/18/23 Client Response/Progress/Benefit: []Pt responded well to session, attentive and engaged. Pt reports feeling low this morning as pt was sick over the weekend and when pt is sick physically, it is a trigger for depression. The group connected with this and noted that physial illness often mimics depression due to the isolation and lack of energy. Pt reported he was proud of himself for trying new coping skills like taking a bath and exercising and he is happy that his partner started a job this week. Pt appeared to benefit from gaining group support and processing his stressors. Pt will continue IOP tx to prevent decompensation, improve daily functioning, and increase use of healthy coping skills. Narrative Note: []
--- NOTE | 2023-05-18 10:15 | BH.SGPN.GN ---
Behaviors/Verbalizations/Mental Status: [] Eye contact is good. Motor activity is appropriate. Appearance is casual. Speech is Appropriate. Mood is anxious. Affect is congruent. Thoughts are linear and logical. No evidence of psychosis. Client Response/Progress/Benefit: [] Pt was an engaged participant AEB listening attentively to others, taking notes, and providing feedback in small group discussions. Attentive during psychoeducation AEB by note taking and providing some input. Pt worked along with peers in small groups to define inappropriate guilt and appropriate guilt. Interactive discussion on examples of both inappropriate and appropriate guilt. Pt able to connect impact inappropriate guilt can have on MH. Benefited from increased awareness of guilt and the differences between appropriate and inappropriate guilt. Will continue in IOP to decrease anxious avoidance, challenge distortions, and prevent decompensation.
--- NOTE | 2023-05-18 11:15 | BH.SGPN.GN ---
Behaviors/Verbalizations/Mental Status: []Pt alert and oriented, casually dressed and groomed. Eye contact good. Motor activity appropriate. Speech within normal limits. Affect congruent, mood content, anxious. Thoughts linear, logical, no signs of hallucinations or delusions. Client Response/Progress/Benefit: [] Pt engaged participant AEB listening attentively to others and providing input throughout group. Pt worked within their small group to identify strategies to manage inappropriate guilt. Shared a personal example of inappropriate guilt as taking time off work to address his mental health sx. Insight this cues a fear of not being enough and results in comparing himself to others. Pt wants to work on combatting inappropriate guilt by challenging distortions and focusing on self-compassion. Pt seemed to benefit from learning about strategies to manage appropriate and inappropriate guilt. Pt will continue IOP tx to reduce promote mood stability, reinforce healthy boundaries, encouraging self-compassion, and prevent decompensation. Narrative Note: []
--- NOTE | 2023-05-20 10:10 | BH.SGPN.GN ---
Behaviors/Verbalizations/Mental Status: []Pt alert and oriented, casual appearance. Eye contact fair. Motor activity appropriate. Speech within normal limits. Affect constricted, mood depressed. Thoughts linear, logical, no signs of hallucinations or delusions. Client Response/Progress/Benefit: [] Client engaged participant AEB completing self-assessment worksheet and providing input throughout discussion. Client completed worksheet identifying current self-care practices and what self-care activities client wants to start using. Client selected emotional self-care to begin practicing more consistently. Client plans to do this by using opposite action and changing environment. Appeared to benefit from completing the self-care evaluation and gaining insights into current self-care practices, as well as identifying areas in which client would like to improve upon. Client will continue IOP tx to improve distress tolerance, increase consistent use of healthy coping skills, and prevent decompensation.
--- NOTE | 2023-05-20 10:19 | BH.MDN ---
Multi-Disciplinary Note Note 60-min Individual: Time Started:: 09:25 Date: 05/20/23 Purpose of session/treatment goals addressed:: To work on goal #1 of pt's tx plan by practicing self-compassion and to set goals to reduce use of unhealthy coping skills. Eye Contact:: Good Motor Activity:: Appropriate Appearance:: Casual Speech:: Appropriate Mood:: Depressed Affect:: Congruent Thoughts:: Circular and No evidence of hallucinations/delusions noted Staff Interventions:: thought challenging, motivational interviewing, psychoeducation on: (changing behaviors with visual cues), CBT techniques, mindfulness skills (discussed mindful eating), strengths perspective, goal setting and taught coping skills Client Response:: Pt responded well to session, open to meeting with therapist. Pt reports he has been doing more things such as stretching and some body weight exercises which has been helpful. However, pt shared he has been having a hard time lately with his body image and negative self-talk. Pt shared he still has toxic expectations about his body from before he transitioned and now he is struggling with what I think I should look like as a man. Pt shared he avoids mirrors and he struggles to find positives about his appearance. Pt has also been more insecure about his appearance and fearing that if he and his partner were to ever break up that pt would not be able to find someone else. Pt stated some of this comes from his upbringing as pt's mother often was verbal about her dislike for her own body and pt's father would make comments about his mother being overweight. Pt shared there was a time during his early transition when pt felt the most confident I felt and pt stated during that time he was taking selfies daily and he was being kind to himself. Pt wants to get back to this and pt was receptive to taking pictures daily again. Pt also encouraged to practice thought challenging and to identify things he appreciates about his body now. Pt feels it would be a good idea to get rid of his scale and to practice mindful eating to reduce binging. Risks/Concerns:: Pt denies any suicidal ideations, plan, or intent as of 05/20/23. Progress Toward Goals/Plan:: Pt continues to report progress towards his tx goals. Pt reports he is learning valuable skills in the IOP and feels he can cope with his anxiety better since starting the IOP. Pt states that he feels more hopeful and less worthless and he has been enjoying reading more lately. However, pt continues to endorse a depressed mood with isolation, binge eating, excessive guilt, rumination, negative view of self and body image, and avoidance. Pt was receptive to setting goals to reduce binge eating and to practice more body-positive self-talk. Pt will continue IOP tx to prevent decompensation, improve daily functioning, and increase distress tolerance skills. Time Stopped:: 10:20
--- NOTE | 2023-05-20 10:20 | BH.MTP_ITS ---
Treatment Plan Review Demographics Date of Admission:: 04/27/23 Date of Treatment Plan Review:: 05/19/23 Admitting Diagnoses:: Bipolar 1 disorder, most recent episode depression, severe without psychosis (F31.4); Generalized anxiety disorder; History of bulimia nervosa Current Diagnoses:: Bipolar 1 disorder, most recent episode depression, severe without psychosis (F31.4); Generalized anxiety disorder; History of bulimia nervosa Patient Status Patient's Response to Treatment:: Pt has responded well to session AEB consistently attending IOP and engaging in both individual and group therapy sessions. Pt consistently completes homework provided from individual counseling. Pt contributes at times during group discussions, takes notes, appears to listen to others, and engages in group activities. Status of Current Problems and Symptoms: Pt is currently struggling most with his depressive symptoms. Pt reports he continues to feel low, has negative self- talk, and he is still isolating. Pt also working on developing healthier balance with eating, watching TV, and smoking which are things pt does to cope when depressed. Pt reports this week he has been especially hard on himself for binge eating and this has led to a spiral of negative self-talk and poor self- esteem. Pt reports feeling unlovable right now due to his weight gain and this is causing a lot of cognitive dissonance. Progress Problem #1: Problem Name:: Depression, excessive guilt, worthlessness, isolation, and rumination Status of Goals:: Objective 1- not complete. Per the DSM-5, pt?s depression has not decreased. Pt reports he feels ready to explore adding a medication to help his depression. Pt is utilizing healthy coping skills more often, but pt feels this is still not helping enough. Objective 2- in progress. Pt is gaining more awareness of his negative self-talk and he is working on incorporating self-compassion. Pt is currently struggling with negative self- talk about his appearance and weight. Team Recommendations:: Team recommends continued goals and objectives with focus on improving awareness of negative thoughts and building skills on how to improve thought patterns and build confidence. Pt is also considering adding a medication to help with his depressive symptoms as pt's scores have not decreased since admission. Problem #2: Problem Name:: Anxiety, avoidance, dissociation Status of Goals:: objective 1- complete with ongoing work encouraged. Pt?s DSM-5 scores for anxiety have decreased by 40% since admission and more specifically pt reports he is avoiding things 50% less per the DSM-5. Pt reports using opposite action and calming skills. Objective 2- in progress. Pt is increasing his distress tolerance skills through delay, distract, decide. Pt is working on reducing his numbing behaviors with the hopes this will reduce anxiety and dissociation. Team Recommendations:: Team recommends continued goals and objectives to reinforce skills and maintain gains made.
--- NOTE | 2023-05-20 11:10 | BH.SGPN.GN ---
Behaviors/Verbalizations/Mental Status: []Pt alert and oriented, appearance appropriate. Eye contact good. Motor activity appropriate. Speech within normal limits. Affect congruent, mood anxious and depressed. Thoughts linear, logical, no signs of hallucinations or delusions. Client Response/Progress/Benefit: [] Client engaged participant AEB completing self-assessment worksheet and providing input throughout discussion. Client completed worksheet identifying current self-care practices and what self-care activities client wants to start using. Client selected physical and spiritual self-care to begin practicing more consistently. Client plans to do this by being more consistent with daily exercise and time outdoors. Appeared to benefit from completing the self-care evaluation and gaining insights into current self-care practices, as well as identifying areas in which client would like to improve upon. Client will continue IOP tx to promote skill application, improve mood stability, and prevent decompensation. Narrative Note: []
--- NOTE | 2023-05-24 09:05 | BH.SGPN.GN ---
Behaviors/Verbalizations/Mental Status: [Patient was alert and oriented, appropriately dressed and groomed. Eye contact was good, motor activity normal, speech within normal limits. Affect congruent, mood anxious. Thoughts linear, logical, no signs of hallucinations or delusions. Reviewed Patients symptom tracker and the patient reports depressed mood, anxiety/panic attacks, agitation/irritability/anger, self-harm urges, and thoughts/risk of suicide within normal limits.] Client Response/Progress/Benefit: [Patient was engaged and open to the discussion. Patient reported his mood to be ?anxious?. Patient reported that his long-distance partner had broken up with him on because his partner could ?no longer see a future for himself?. Patient has been worried about his ex-partner and has continued to talk to him although they have . Patients first win is that on Wednesday when he woke up, he knew he needed to talk to someone and came into the program to talk to his counselor. He stated this really helped him. Patient stated his second win is that he made sure he kept communicating with some of his friends and they supported him by spending time with him, so he wasn?t alone. Patient was interactive and respectful with other group members about their mental wins and stressors. Patient benefited from the discussion by listening to feedback and giving input on his peer?s stressors and mental health wins. Patient will continue with IOP treatment to help develop healthy skills, promote mood stability, and improve distress tolerance. ] Narrative Note: []
--- NOTE | 2023-05-24 10:10 | BH.SGPN.GN ---
Behaviors/Verbalizations/Mental Status: [] Eye contact good. Motor activity is appropriate. Appearance is casual. Speech normal. Mood is euthymic. Affect is congruent. Thoughts are linear and logical. No evidence of psychosis. Client Response/Progress/Benefit: [] Client was an active participant in group discussion and participated in activity. Attentive during psychoeducation on resilience. Participated in interactive discussion with peers on the definition of resilience and where it comes from . Group identified that resiliency can be impacted by; past experiences, learned behaviors, and trauma. Group also worked together to identify the benefits of being resilient and how it is related to mental health which included having more jim and becoming stronger. Able to relate experiential activity of group juggle to topics of resilience. Worked well with peers in small group in which they identified factors that contribute to resilience. Benefited from increased awareness of resilience and the factors that contribute to building resilience. Will continue in IOP to increase overall functioning and further promote mood stability. Narrative Note: []
--- NOTE | 2023-05-24 11:10 | BH.SGPN.GN ---
Behaviors/Verbalizations/Mental Status: [] Client alert and oriented, neatly dressed and groomed. Eye contact fair. Motor activity appropriate. Speech within normal limits. Affect congruent, mood euthymic. Thoughts linear, logical, no signs of hallucinations or delusions Client Response/Progress/Benefit: [] Client responded well to session AEB completing the resilience worksheet provided. Client actively participated in the discussion and worked cooperatively with group to identify strategies to enhance each of the components discussed. Client reports belief they already use resilience trait of ?self awareness.? Client discussed that they could work on moving towards goals. Client seemed to benefit from discussing strategies for improving personal resilience and identifying resilience traits client already possesses. Will continue IOP tx to increase self-worth and increase self-care. Narrative Note: []
--- NOTE | 2023-05-25 09:00 | BH.SGPN.GN ---
Behaviors/Verbalizations/Mental Status: [] Eye contact is poor. Motor activity is appropriate. Appearance is casual. Speech is Appropriate. Mood is depressed. Affect is flat. Thoughts are linear and logical. No evidence of psychosis. Reviewed daily check in sheet and pt reports 2/5 for suicidal thoughts and 0/5 for intent. Therapist notified. Client Response/Progress/Benefit: [] Pt did not participate in group discussion. Declined to share. Daily symptom tracker notes 5/5 for depression and anxiety, 4/5 for irritability, and 2/5 for self-harm urges. Pt is currently going through a break-up and was noted to be struggling since last week. Regression noted since breakup. Limited benefit from group noted due to declining to share. Will continue in IOP to maintain safety, stabilize mood, increase healthy coping, and improve functioing to return to work. Narrative Note: []
--- NOTE | 2023-05-25 10:15 | BH.SGPN.GN ---
Behaviors/Verbalizations/Mental Status: []Pt alert and oriented, casually dressed and groomed. Eye contact good. Motor activity appropriate. Speech within normal limits. Affect congruent, mood depressed and anxious. Thoughts linear, logical, no signs of hallucinations or delusions. Client Response/Progress/Benefit: [] Pt responded well to session AEB contributing to small group discussion, taking notes, and listening attentively to others. Group discussed the benefits of managed anger and anger as a secondary emotion. Pt shared perspective on personal benefits of anger as motivating change. Pt completed worksheet on anger triggers and personal warning signs of anger. Pt identified a common trigger as being lied to. Appeared to benefit from increased knowledge of the anger cycle as well as personal triggers. Will continue IOP tx to promote mood stability, reduce distorted thought patterns and improve boundaries, as well as improve daily functioning. Narrative Note: []
--- NOTE | 2023-05-25 12:55 | BH.MDN ---
Multi-Disciplinary Note Note 60-min Individual: Time Started:: 10:40 Date: 05/25/23 Purpose of session/treatment goals addressed:: To address current stressors, symptoms, and see how pt is coping with recent breakup. Another goal was to combat distorted thinking patterns. Eye Contact:: Fair Motor Activity:: Restless Appearance:: Disheveled Speech:: Soft Mood:: Depressed Affect:: Congruent (tearful) Thoughts:: Racing and No evidence of hallucinations/delusions noted Staff Interventions:: thought challenging, motivational interviewing, CBT techniques, mindfulness skills, strengths perspective, goal setting and taught coping skills Client Response:: Pt responded well to session, open to meeting with therapist. Pt shared he is doing okay post breakup which pt describes as managing the best he can, but still feeling confused and hurt. Pt stated he was frustrated with his ex-boyfriend's reasoning for the breakup as pt felt that his ex was telling me what I'm able to handle or not handle. Pt reported his ex told pt that pt could no longer handle long distance and pt could also not handle moving to be with his ex. Pt is fearful to express how he feels as pt is trying to keep the peace as to not be like my ex-. Pt is fearful that if his reactions to the breakup are not cordial, this means pt is annoying and needy. pt responded well to thought challenging which helped pt see the differences between pt and his ex-. Pt also reflected on normal emotional reactions during breakups and how it is what pt does with his emotions that is important. Pt shared that he could benefit from communicating with his ex about having a phone call as pt felt they still did not get closure. Pt struggles with people pleasing and not advocating for his needs, so this would be a positive step for pt. Additionally, pt feels anxious that his friends are getting tired of him and pt feels annoying. Pt also wants to work on not setting boundaries for other people and and letting his friends set their own boundaries. Risks/Concerns:: Pt denies any active SI, plan, or intent. Pt does have occasional thoughts of self-harm triggered by the breakup, but pt denies he would act on these thoughts. Progress Toward Goals/Plan:: Despite recent stressor of pt going through a breakup and pt having a recent setback, but pt bouncing back and showing resilience. Pt is still very tearful, having urges to engage in unhealthy coping skills, and having increased anxiety. However, pt is reaching out to his supports, using opposite action, and continues to be receptive to thought challenging. Pt is less anxious about returning to work as well. Pt will continue IOP tx to prevent decompensation, improve self-compassion, and reduce negative thinking patterns. Time Stopped:: 11:56
--- NOTE | 2023-05-26 09:05 | BH.SGPN.GN ---
Behaviors/Verbalizations/Mental Status: [Patient was alert and oriented, appropriately dressed and groomed. Eye contact was good, motor activity normal, speech within normal limits. Affect congruent, mood anxious. Thoughts linear, logical, no signs of hallucinations or delusions. Reviewed Patients symptom tracker and the patient reports depressed mood, anxiety/panic attacks, agitation/irritability/anger, self-harm urges, and thoughts/risk of suicide within normal limits.] Client Response/Progress/Benefit: [Patient was engaged and open to the discussion. Patient reported his mood to be ?anxious?. Patients? stressor has to do with the breakup he is going through. He admitted that it he knows that going ?no contact? would be best for them because of the strain it has been putting on the patient. But the patient stated he doesn?t feel like he can do that right now. Patients first win is that he went for a walk yesterday for about an hour and listened to music. Patients second win was that he went to a store in [place] yesterday that had a lot of cool gift type of items. Patient was interactive and respectful with other group members about their mental wins and stressors. Patient benefited from the discussion by listening to feedback and giving input on her peer?s stressors and mental health wins. Patient will continue with IOP treatment to help develop healthy skills, promote mood stability, and improve distress tolerance. ] Narrative Note: []
--- NOTE | 2023-05-26 11:15 | BH.SGPN.GN ---
Behaviors/Verbalizations/Mental Status: []Pt alert and oriented, neatly dressed and groomed. Eye contact good. Motor activity appropriate. Speech within normal limits. Affect congruent, mood calm. Thoughts linear, logical, no signs of hallucinations or delusions. Client Response/Progress/Benefit: []Pt participated in group discussion, drawing, and activity. Worked with group to identify strategies to help overcome barriers and obstacles to desired reality. Group developed strategies for the common barriers of avoidance, feeling burned out, unrealistic expectations, emotional reasoning, and difficulty asking for help. Identified personal barriers to desired reality and choose one obstacle to work on this week which was numbing. Pt plans to do this by sitting with the uncomfortable and taking breaks from distractions so pt can feel his emotions. Pt seemed to benefit from group by identifying obstacles and solutions to desired reality. Will continue in IOP to prevent decompensation, reduce self-sabotaging behaviors, and improve self-compassion. ?? Narrative Note: []
--- NOTE | 2023-05-27 09:02 | BH.SGPN.GN ---
Behaviors/Verbalizations/Mental Status: [] Eye contact good. Motor activity appropriate. Speech within normal limits. Affect congruent, mood anxious and depressed. Thoughts linear, logical, no signs of hallucinations or delusions. Reviewed client?s symptom tracker, denies SI, plan, or intent as of 05/27/2023. Client Response/Progress/Benefit: [] Client receptive of session, attentive and willing to process with group. Identified mental health ?wins? as challenging himself to use a support to help challenge his distorted thoughts and inappropriate guilt associated with a recent break-up. Additional win noted as making plans to clean his home today despite not wanting to be alone. Shared he will put on music he enjoys and focus on being in the present moment if recognizing he's falling into unhealthy thinking patterns. Reports current stressor as continuing to struggle with grief associated with his recent break-up. Did well to challenge these thoughts and identify skills to aid in coping. Client appeared to benefit from group support and encouragement. Recommended continued IOP tx to continue to improve mood stability, continue to promote consistent skill application, and prevent decompensation. Narrative Note: []
--- NOTE | 2023-05-27 10:15 | BH.SGPN.GN ---
Behaviors/Verbalizations/Mental Status: []Pt alert and oriented, neatly dressed and groomed. Eye contact good. Motor activity appropriate. Speech within normal limits. Affect congruent, mood content. Thoughts linear, logical, no signs of hallucinations or delusions. Client Response/Progress/Benefit: []Pt an active participant throughout. Participated during interactive discussion on defining conflict (internal/external) and possible benefits to conflict. Attentive during psychoeducation on conflict styles and engaged during small group activity in which peers identified the benefits and consequences to each conflict style. Pt identified their primary conflict style as collaborating type, but pt shared he often gets disappointed when other people are not receptive to addressing conflict. Pt shared he does see a lot of benefits of this style including pt?s ability to keep an open mind. Benefited from increased awareness of the impact of conflict styles in mental health. Will continue in IOP to reinforce healthy coping skills, improve mood stability, and combat distorted thinking patterns. Narrative Note: []
--- NOTE | 2023-05-27 11:10 | BH.SGPN.GN ---
Behaviors/Verbalizations/Mental Status: [] Eye contact is good. Motor activity is appropriate. Appearance is casual. Speech is Appropriate. Mood is depressed. Affect is congruent. Thoughts are linear and logical. No evidence of psychosis. Client Response/Progress/Benefit: [] Pt was an active participant in group discussions and activity. Attentive during psychoeducation on the benefits and drawback of each conflict style. Along with peers was able to reflect on what conflict resolution skills can be useful outside of IOP. Pt chose to continue to work on the conflict resolution skill of not stonewalling . Shared that she needs to be more collaborative in her communication. Benefited from practicing and learning conflict resolution skills during group activity. Able to relate activity back to group topic. Will continue in IOP to maintain safety, prevent decompensation/re-admission to psych unit, stabilize mood, and improve functioning to return to work. Narrative Note: []
== END 2023-05-27 23:59 ==
LOC: BHIOP 07:51
PROVIDERS: PCP Family Medicine; Referring Provider Psychiatry & Neurology Psychiatry; Visit Provider Psychiatry & Neurology Psychiatry
DX: F31.4 Bipolar disorder, current episode depressed, severe, without psychotic features (principal); F41.1 Generalized anxiety disorder; F50.2 Bulimia nervosa
CPT/HCPCS: S9480; 90834; 90837; 90853

== ENCOUNTER 2023-05-28 06:57 | Outpatient (RCR) | payer OTHER, SELFPAY ==
[2023-05-28 00:39] VITALS: BP 130/80; PULSE 73
--- NOTE | 2023-05-31 09:05 | BH.SGPN.GN ---
Behaviors/Verbalizations/Mental Status: [Patient was alert and oriented, appropriately dressed and groomed. Eye contact was good, motor activity normal, speech within normal limits. Affect congruent, mood tired. Thoughts linear, logical, no signs of hallucinations or delusions. Reviewed Patients symptom tracker and the patient reports depressed mood, anxiety/panic attacks, agitation/irritability/anger, self-harm urges, and thoughts/risk of suicide within normal limits.] Client Response/Progress/Benefit: [Patient was engaged and open to the discussion. Patient reported his mood to be ?low energy and tired?. Patients first win is that he and his friends drove to [place], [place] to go to ?[employer] gas station. Patient stated this was a good time and that it is like a gas station turned into a mall or ?hot spot?. Patients second win is that he has been taking more walks lately and gave himself permission to be ?lazy? because he needed rest. Patients stress is that he is continuing to make himself stay ?stuck? in his sadness and grief when he starts to feel happy. Patient said he thinks he still should be upset since he got ?dumped? but knows he needs to move on. Patient was interactive and respectful with other group members about their mental wins and stressors. Patient benefited from the discussion by listening to feedback and giving input on his peer?s stressors and mental health wins. Patient will continue with IOP treatment to help develop healthy skills, promote mood stability, and improve distress tolerance. ] Narrative Note: []
--- NOTE | 2023-05-31 10:15 | BH.SGPN.GN ---
Behaviors/Verbalizations/Mental Status: []Patient was alert and oriented, casually dressed and groomed. Eye contact was good, motor activity normal, speech within normal limits. Affect congruent, mood content. Thoughts linear, logical, no signs of hallucinations or delusion Client Response/Progress/Benefit: []Pt participated in the group discussions AEB providing input and taking notes. Attentive during psychoeducation Goal Setting. Participated during the discussion on common barriers lack of motivation, making excuses, not feeling good enough, and lack of support. Group also identified benefits sense of purpose, improved self-confidence, more motivation for other goals, and improved mental health. Pt reports struggling specifically with barriers of urges to engage in unhealthy impulses and lack of motivation. Benefited from increased awareness of mental health benefits of goals as well as psychoeducation on SMART goal criteria. Will continue in IOP to promote self-compassion, reduce negative thinking patterns, and increase distress tolerance skills. Narrative Note: []
--- NOTE | 2023-05-31 11:10 | BH.SGPN.GN ---
Behaviors/Verbalizations/Mental Status: []Pt alert and oriented, casually dressed and groomed. Eye contact good. Motor activity appropriate. Speech within normal limits. Affect congruent, mood depressed and anxious. Thoughts linear, logical, no signs of hallucinations or delusions. Client Response/Progress/Benefit: [] Pt was engaged during discussion and willing to complete the worksheet challenging them to develop a personal SMART goal. Pt chose the goal of doing at least one physical thing each day for a week. Pt stated this will improve his self-confidence, increase motivation, and promote improved energy levels. Pt identified negative self-talk and low motivation as barriers. Identified solutions such as placing self-reflection, affirmations, looking at the evidence he can do it/has done it in the past, and using opposite action. Pt receptive to identifying solutions for these barriers and willing to begin working on this goal. Benefited from this group by developing a short-term SMART goal related to mental health. Will continue IOP tx to prevent decompensation, improve daily functioning, promote mood stability, and gain healthy coping skills. Narrative Note: []
--- NOTE | 2023-06-02 10:25 | BH.MDN ---
Multi-Disciplinary Note Note 45-min Individual: Time Started:: 09:20 Date: 06/02/23 Purpose of session/treatment goals addressed:: To work on goal #1 of pt's tx goal by combating negative self-talk and increasing self-compassion. Eye Contact:: Good Motor Activity:: Appropriate Appearance:: Neat Speech:: Appropriate Mood:: Euthymic Affect:: Full (smiling and laughing today) Thoughts:: Linear, Logical and No evidence of hallucinations/delusions noted Staff Interventions:: thought challenging, motivational interviewing, CBT techniques, discharge planning, strengths perspective, goal setting and taught coping skills (affirmations; habit stacking; emotional mindfulness.) Client Response:: Pt responded well to session, open to meeting with therapist. Pt reports feeling better than last week and pt shared he has been coping better with the end of his relationship. Pt has been keeping himself busy by spending time with friends, going for walks, and exercising. Pt advocated for himself and had a phone call with his ex which pt felt that he needed for closure. Pt shared it was helpful, but also confusing because his ex told pt that maybe someday they could get back together. Pt continues to grieve the loss of his relationship and at the same time pt is actively trying to do anything to get him back. Pt stated he has been feeling deeply insecure and he is looking for reassurance from his ex, but he is not getting that reassurance. Pt and his ex are still texting and pt feels this is beneficial for now. Pt admits that he is unsure of what he needs, but he does recognize that pt is not always respecting his personal boundaries. Pt did express his frustration with his ex about him telling me what I can and cannot handle. This helped pt reflect on all the hard things he has been able to cope through in his life and it helped pt give himself credit. Pt shared he has been wanting to work on increasing self-assurance and pt feels he can begin to do this by setting goals to say affirmations. Pt has tried affirmations in the past, but he felt silly and did not believe them. Discussed strategies to help pt identify affirmations and be more consistent. Pt has a plan to do affirmations with a friend who will help him be consistent. Risks/Concerns:: Pt denies any suicidal ideations, plan, or intent as of 06/02/23. Pt is future oriented and motivated. Progress Toward Goals/Plan:: Pt continues to make progress towards his tx goals AEB pt's self-report of improved mood this week, reduced isolation and crying spells, and more social connections. Pt is still coping with the loss of his relationship, but pt is adjusting well and is utilizing healthy skills to manage his feelings. Pt called the outpatient therapists, and was unable to get in with anyone. Pt will be given new referrals. Pt will continue IOP tx to promote gains made within the past week, improve self-compassion, and continuing to manage emotions triggered by his breakup. Time Stopped:: 10:00
--- NOTE | 2023-06-02 11:15 | BH.SGPN.GN ---
Behaviors/Verbalizations/Mental Status: [] Pt alert and oriented, casually dressed and groomed. Eye contact good. Motor activity appropriate. Speech within normal limits. Affect congruent, mood content, dysthymic. Thoughts linear, logical, no signs of hallucinations or delusions. Client Response/Progress/Benefit: [] Pt was an active participant throughout AEB contributing to group discussion and taking notes. Pt provided input during small group discussion on strategies to combat each factor maintaining adverse nutritional cycles. Worked with group to identify ways to foster more mindful nutritional choices. Each group participant identified one small step they could take today to begin establishing mental wellness promoting nutritional choices. Pt shared plans to?begin researching more nutritious foods. Appeared to benefit from gaining insight into mental wellness centered nutrition and identifying personal steps pt can take to support own nutritional psychology. Recommended continued IOP tx to promote self-care, improve mood stability, and combat distortions. ? Narrative Note: []
--- NOTE | 2023-06-02 11:47 | PCM.BH.PN ---
Progress Note Progress Note: History of Present Illness/Interim History: The patient is a 27-year-old biological female who identifies as a transgender male with a history of bipolar disorder and anxiety who is seen in follow-up at the [facility] behavioral health IOP. I last saw patient 1 week ago and at that time Seroquel was added to help with bipolar depression and sleep issues. The patient is tolerating the Seroquel well and feels symptoms may have improved and his sleep has definitely improved. He denies any passive thoughts of . He feels he is learning valuable skills in the IOP. He denies any thoughts of self-harm. He denies suicidal ideation, homicidal ideation, hallucinations or delusions. He is having 1 panic attack a day about. Sleep has improved to 6 to 8 hours of sleep at night. Current Psychiatric Medications: [] Seroquel 50 mg p.o. nightly (x 1 week); Lamictal 100 mg p.o. daily (x 1 week); propranolol 10 mg p.o. daily; Xanax 0.5 mg as needed for panic attacks Mental Status Examination: [] The patient is a 27-year-old biological female who identifies as a trans gender male and is seen dressed as a male and is male in appearance overall with a thin facial griffith. Tattoos and piercings remain unchanged from the initial visit. He is casually dressed and groomed with good hygiene and ambulatory with a normal gait. There is no psychomotor agitation or retardation. He is cooperative and pleasant during the interview. Eye contact is good and speech is normal rate and rhythm and fluent with no pressure. Mood is depressed. Affect is mildly constricted. Thought process is goal-directed and organized. Thought content: The patient is hopeful for the future. There is no evidence of passive thoughts of , suicidal ideation, plan for suicide, homicidal ideation, hallucinations, delusions or thoughts of self-harm. Reality testing is intact. Judgment is intact. Insight is fair but improving. Diagnoses: [] 1. Bipolar 1 disorder, most recent episode depression, severe without psychosis (F31.4) 2. Generalized anxiety disorder 3. History of bulimia nervosa 4. Strong cluster B traits 5. Primary support and work issues Plan: [] The patient will continue the IOP in behavioral health at [facility] as the structure, support, education and group therapy will hopefully prevent worsening of the patient's symptoms that could require hospitalization. He felt safe during the interview and if it anytime he does not feel safe he agrees to go to the emergency room or to let us know. No medication changes were made today as the patient is cautious about this as he had severe EPS on an antipsychotic 1 time in the past. I will see the patient in follow-up in 2 weeks and at that time we may consider increasing the Seroquel to 100 mg p.o. nightly to get to a dose that will be more effective to help with his bipolar depression and panic attacks. He will continue follow-up with his outpatient providers.
--- NOTE | 2023-06-03 09:00 | BH.SGPN.GN ---
Behaviors/Verbalizations/Mental Status: [] Eye contact is good. Motor activity is appropriate. Appearance is casual. Speech is Appropriate. Mood is anxious. Affect is congruent. Thoughts are linear and logical. No evidence of psychosis. Reviewed daily check in sheet and no reports of suicidal ideations or intent. Client Response/Progress/Benefit: [] Pt participated at times during the group discussion. Attentive. Pt was able to identify mental health wins and healthy habits. Utilized free time to hang out with support rather than isolate. More confident managing his thoughts when alone stating didn't have anxiety all day. Increased exercising and overall believes that his daily routine are healthier. Seeing benefits with increased motivation, hope, and energy. While being alone continues to be the hardest time he notes improvement in this area in the past week. Will continue in IOP to prevent decompensation/re-admission to psych unit, increase healthy coping, and to increase functioning to return to work. Narrative Note: []
--- NOTE | 2023-06-03 10:15 | BH.SGPN.GN ---
Behaviors/Verbalizations/Mental Status: []Client alert and oriented, casually dressed and groomed. Eye contact good. Motor activity appropriate. Speech within normal limits. Affect congruent, mood dysthymic. Thoughts linear, logical, no signs of hallucinations or delusions. Client Response/Progress/Benefit: []Pt engaged in session AEB listening attentively to others and providing input throughout group discussion. Pt engaged in activity, able to connect how it can be uncomfortable and difficult to accept when things are out of one?s own control. Pt worked with group to identify what things in life can be hard to accept. Group identified things hard to accept as: disability, caregiving responsibilities, loss of relationship, mental health diagnosis, other?s behaviors, and past decisions. Pt identified struggling to accept having the same mental health diagnosis as his mother. Seemed to benefit from increased awareness of importance of acceptance. Pt to continue IOP tx to further improve mood stability, continue to promote application of boundary setting/maintaining skills, and prevent decompensation. Narrative Note: []
--- NOTE | 2023-06-03 11:10 | BH.SGPN.GN ---
Behaviors/Verbalizations/Mental Status: []Pt alert and oriented, neatly dressed and groomed. Eye contact good. Motor activity appropriate. Speech within normal limits. Affect congruent, mood depressed. Thoughts linear, logical, no signs of hallucinations or delusions. Client Response/Progress/Benefit: []Pt responded well to session AEB taking notes and contributing to discussion throughout. Pt engaged as group continued discussion on acceptance and the mental health benefits of practicing acceptance. Pt and peers identified what makes acceptance challenging and pt completed a self-reflection exercise on what is hard to accept in pt's life. Pt identified struggling to accept that my relationship ended.? Group identified strategies to increase acceptance and pt shared wanting to focus on ?living in the rose? and reminding self that he can struggle and make progress at the same time. Pt appeared to benefit from gaining insight and learning strategies to increase acceptance. Pt will continue IOP tx to improve daily functioning, increase distress tolerance skills, and reduce avoidance. Narrative Note: []
--- NOTE | 2023-06-07 09:00 | BH.SGPN.GN ---
Behaviors/Verbalizations/Mental Status: [] Eye contact is good. Motor activity is appropriate. Appearance is casual. Speech is Appropriate. Mood is euthymic. Affect is full. Thoughts are linear and logical. No evidence of psychosis. Reviewed daily check in sheet and no reports of suicidal ideations or intent. Client Response/Progress/Benefit: [] Pt was an active participant in group discussions. Attentive. Daily symptom tracker notes 05/31 for anxiety and depression. Able to identify mental health wins as well as healthy habits. States I really liked the nutritional psychiatry group that he had here at [facility] and has been adjusting his eating and physical activity. Pointed out that he learned a great deal about how foods can impact his mental health. He has been increasing his healthy habits and coping skills and belives that he has developed a routine. He shared that he also has allotted time for self-care and distraction. I took a day just for myself and didn't feel guilty. He shared recent stressors which has triggered anxiety and emotion dysregulation (estranged mother reached out to him). He is debating on wheter to respond. Emotion for today is content. Progress noted. Benefited from group support, encouragement, and feedback. Will continue in [facility] to maintain safety, prevent decompensation/re-admission, and to improve functioning. Narrative Note: []
--- NOTE | 2023-06-07 10:10 | BH.SGPN.GN ---
Behaviors/Verbalizations/Mental Status: [Patient was alert and oriented, casually dressed and groomed. Eye contact was good, motor activity normal, speech within normal limits. Affect congruent, mood depressed. Thoughts linear, logical, no signs of hallucinations or delusions. ] Client Response/Progress/Benefit: [Patient was engaged and open to the discussion and appeared to respond well to the group. Patient used active listening and gave feedback during group discussion. Patient identifies that boundaries help protect you and let you be who you are. Patient was engaged in the activity of identifying the reasons boundary setting is hard. Patient stated its hard for him because he doesn?t want to disappoint people. Patient appeared to benefit from increasing awareness of healthy strategies to improve communication. Patient will continue IOP treatment to improve daily functioning, emotion management, and prevent decompensation] Narrative Note: []
--- NOTE | 2023-06-07 11:15 | BH.SGPN.GN ---
Behaviors/Verbalizations/Mental Status: []Pt alert and oriented, neatly dressed and groomed. Eye contact good. Motor activity appropriate. Speech within normal limits. Affect congruent, mood euthymic. Thoughts linear, logical, no signs of hallucinations or delusions. Client Response/Progress/Benefit: [] Pt responded well to session AEB listening attentively to peers and providing input throughout. Pt attentive during psychoeducation on the different boundary styles. Pt identified being more flexible now, but pt used to be porous per his report. ?Pt was given a handout on strategies for healthy boundary setting. Identified wanting to work on asking for clarification, writing and rehearsing his boundary, and DDD. Seemed to benefit from increased awareness of boundary styles and strategies to improve setting boundaries. Will continue IOP tx to promote mood stability, increase self-compassion, and further reduce negative thinking patterns. ? Narrative Note: []
--- NOTE | 2023-06-08 09:05 | BH.SGPN.GN ---
Behaviors/Verbalizations/Mental Status: [] Eye contact good. Motor activity appropriate. Speech within normal limits. Affect congruent, mood agitated and anxious. Thoughts linear, logical, no signs of hallucinations or delusions. Reviewed client?s symptom tracker, denies SI, plan, or intent as of 06/08/2023. Client Response/Progress/Benefit: [] Client first week in tx. She was receptive of session, attentive and willing to process with group. Identified mental health ?wins? as continuing to actively engage in daily exercise/movement. Shared feeling more positive about himself and his body as a result. Additional win noted as being able to sleep without the assistance of a sleep aid/medication. Reports current stressor as ongoing difficulties in navigating an insurance issue and feeling frustrated it has not yet been resolved. Recommended continued IOP tx to continue to improve mood stability, promote consistent skill application, and prevent decompensation. Narrative Note: []
--- NOTE | 2023-06-08 10:10 | BH.SGPN.GN ---
Behaviors/Verbalizations/Mental Status: [] Eye contact is fair. Motor activity is appropriate. Appearance is casual. Speech is Appropriate. Mood is anxious. Affect is congruent. Thoughts are linear and logical. No evidence of psychosis. Client Response/Progress/Benefit: [] Pt was an active participant in group discussions. Attentive during psychoeducation on the 4 communication styles (Passive, Passive-Aggressive, Aggressive, and Assertive) and the obstacles to effective communication. Contributed during interactive discussion on the benefits of communicating effectively which included; having one's needs met, helping others get their needs met, building connection with others, decreases stress and uncertainty, improved relationships, increased trust, and increased understanding of others. Worked well in small group in which pt and peers identified the benefits and disadvantages to the different communication styles. Benefited from increased understanding of communication styles and how these can impact effective communication. Will continue in IOP to improve distress tolerance, challenge negative thoughts, improve confidence, and prevent decompensation.
--- NOTE | 2023-06-08 10:25 | BH.MDN ---
Multi-Disciplinary Note Note 45-min Individual: Time Started:: 09:00 Date: 06/08/23 Purpose of session/treatment goals addressed:: To work on goal #1 of pt's tx plan, discuss discharge, and review progress. Eye Contact:: Good Motor Activity:: Appropriate Appearance:: Neat Speech:: Appropriate Mood:: Euthymic and Other (frustrated with FMLA) Affect:: Full Thoughts:: Linear, Logical and No evidence of hallucinations/delusions noted Staff Interventions:: thought challenging, CBT techniques, mindfulness skills, discharge planning, strengths perspective, goal setting and taught coping skills (taught pt skill of riding the wave) Client Response:: Pt responded well to session, open to meeting with therapist. Pt reports he is struggling a bit today because there was some confusion with his FMLA and short-term disability and now pt has to fill out more paperwork. Pt stated he is not an angry person, so when he feels anger, pt feels uncomfortable and like he is being a mean person. Pt shared he notices progress though because a few weeks ago this stressor would have led to a significant decompensation. Today pt is frustrated, but he is taking steps to manage this stressor and he did not isolate. Pt also has plans with friends and he has consistently been exercising which is positive. Pt continues to struggle at night when he is not distracted, so his thoughts race and he becomes sad about his breakup. Pt has stop smoking marijuana too, so he is feeling my feelings even more now. Pt wants to stop smoking because he knows he was using it as an unhealthy coping skills to numb and avoid. Pt receptive to learning about riding the wave which is a DBT skill to help curb urges and increase distress tolerance. Pt shared his cycle for smoking as well as his cues for smoking. Pt notices he turns to smoking when he is bored, anxious, or sad and this takes away his emotions temporarily, but then he has consequences like forgetting things and not processing. Pt receptive to working on the skill of riding the wave and reminding himself that feelings are not bad or good. Risks/Concerns:: Pt denies any suicidal ideations, plan, or intent as of 06/08/23. No thoughts of reported. Progress Toward Goals/Plan:: Pt continues to make progress towards his tx goals. Pt reports the medication change is likely helping and pt is less tearful and depressed. Pt is more hopeful again after his breakup and he is being active with supports. Pt admits to using coping skills outside of IOP consistently and he is feeling ready to discharge next week. Pt still wants to find a new therapist and was given more options today as the last three did not work out. Pt will continue IOP tx for one more week to establish aftercare, reinforce healthy coping skills, and further improve self-confidence. Time Stopped:: 09:42
--- NOTE | 2023-06-08 11:15 | BH.SGPN.GN ---
Behaviors/Verbalizations/Mental Status: []Pt alert and oriented, neatly dressed and groomed. Eye contact good. Motor activity appropriate. Speech within normal limits. Affect congruent, mood euthymic. Thoughts linear, logical, no signs of hallucinations or delusions. Client Response/Progress/Benefit: [] Pt responded well to session AEB Pt listening attentively to others and providing input during group discussion on the pay offs and costs of the different communication styles. Pt able to connect how current communication style impacts mental health. Connected with peers comments about importance of using assertive communication. Pt did well being assertive in the group activity and practiced using assertive communication in the role playing scenarios. Pt shared that he is normally very passive, so the activity did help him practice being assertive. ?Pt seemed to benefit from increasing awareness of healthy strategies to improve communication. Will continue IOP tx to promote mood stability, increase distress tolerance skills, and improve self-compassion. ? Narrative Note: []
--- NOTE | 2023-06-10 09:00 | BH.SGPN.GN ---
Behaviors/Verbalizations/Mental Status: [] Eye contact is good. Motor activity is appropriate. Appearance is casual. Speech is Appropriate. Mood is anxious. Affect is congruent. Thoughts are linear and logical. No evidence of psychosis. Reviewed daily check in sheet and no reports of suicidal ideations or intent. Client Response/Progress/Benefit: [] Pt participated at times during the group discussion. Attentive. Symptom tracker notes 2/5 for depression and anxiety. Able to identify mental health wins and healthy habits. States that he is managing his emotions and intrusive thoughts ?better?. ? I?m noticing a difference and I?m more motivated?. Significant stress and anxiety about his plans to return to work. He wishes to return full-time and is worried about burning out. The group discussed other options however he states that he cannot return part-time due to financial struggles. Concern for self-sabotaging and encouraged him to discuss further with program therapist. Progress noted. Benefited from group support, encouragement, and feedback. Will continue in IOP to prevent decompensation/re-admission, increase healthy coping, and to improve functioning to return to work. Narrative Note: []
--- NOTE | 2023-06-10 10:10 | BH.SGPN.GN ---
Behaviors/Verbalizations/Mental Status: []Pt alert and oriented, appropriate grooming/appearance. Eye contact good. Motor activity appropriate. Speech within normal limits. Affect congruent, mood anxious. Thoughts linear, logical, no signs of hallucinations or delusions. Client Response/Progress/Benefit: []Pt was an active participant in group discussions. Attentive during psychoeducation. Contributed during interactive discussions in which peers attempted to define crisis. Pt identified examples of potential crisis. Group also worked together to identify unhealthy responses to crisis which included; isolation, self-harm, substance abuse, avoidance, and distraction. Pt identified personal warning signs as canceling plans, sleeping more than usual, loss of interest and over use of distractions. Benefited from increased understanding of crisis and awareness of personal responses to crisis. Pt will continue IOP tx to challenge distortions, increase confidence, and prevent decompensation.
--- NOTE | 2023-06-10 11:10 | BH.SGPN.GN ---
Behaviors/Verbalizations/Mental Status: []Eye contact is good. Motor activity is appropriate. Appearance is casual. Speech is Appropriate. Mood is euthymic. Affect is congruent. Thoughts are linear and logical. No evidence of psychosis. Client Response/Progress/Benefit: []Pt was an active participant in group discussions. Attentive during psychoeducation. In small group pt along with peers developed an active plan for their crisis warning signs. Pt identified three crisis warning signs as well as an action plan for each. One crisis warning sign was calling off work. Pt identified coping skills to help with this such as: comparing where he is now with where he wants to be and thinking about the positives of going to work. Benefited from increased awareness of crisis warning signs and by developing crisis intervention strategies. Will continue in IOP to promote gains, further increase self-care practices, and improve ability to manage stressors. ??? Narrative Note: []
--- NOTE | 2023-06-14 09:05 | BH.SGPN.GN ---
Behaviors/Verbalizations/Mental Status: [Patient was alert and oriented, appropriately dressed and groomed. Eye contact was good, motor activity normal, speech within normal limits. Affect congruent, mood sad. Thoughts linear, logical, no signs of hallucinations or delusions. Reviewed Patients symptom tracker and the patient reports depressed mood, anxiety/panic attacks, agitation/irritability/anger, self-harm urges, and thoughts/risk of suicide within normal limits.] Client Response/Progress/Benefit: [Patient was engaged and open to the discussion. Patient reported his mood to be ?sad?. Patients first win is that he has discovered a new podcast about anxious attachment styles. Patient admitted that this podcast ?speaks to him? and how his mind works. Patients second win is that he is going hiking tomorrow which he is looking forward to. Patients stressor is that he wants to set up a boundary with one of his friends that keeps canceling on him but doesn?t want them to be upset with him. Patient was interactive and respectful with other group members about their mental wins and stressors. Patient benefited from the discussion by listening to feedback and giving input on his peer?s stressors and mental health wins. Patient will continue with IOP treatment to help develop healthy skills, promote mood stability, and improve distress tolerance. ] Narrative Note: []
--- NOTE | 2023-06-14 10:15 | BH.SGPN.GN ---
Behaviors/Verbalizations/Mental Status: []Pt alert and oriented, causally dressed and groomed. Eye contact good. Motor activity appropriate. Speech within normal limits. Affect congruent, mood anxious. Thoughts linear, logical, no signs of hallucinations or delusions. Client Response/Progress/Benefit: [] Pt engaged in group session AEB listening to others, taking notes throughout, and nodding head to others comments. Group attentive during psychoeducation about emotion regulation and dysregulation. Appeared to connect with scenarios reviewed in group on emotion regulation vs dysregulation. Engaged in activity, reporting he stepped outside comfort zone by being the main communicator in group and pt felt this was beneficial for him. Pt benefited from session by gaining an increased understanding on the importance of managing emotions. Pt to continue IOP to improve daily functioning, increase healthy coping, and increase self-compassion. Narrative Note: []
--- NOTE | 2023-06-14 11:10 | BH.SGPN.GN ---
Behaviors/Verbalizations/Mental Status: []Pt alert and oriented, casually dressed and fairly groomed. Eye contact good. Motor activity appropriate. Speech within normal limits. Affect congruent, mood anxious. Thoughts linear, logical, no signs of hallucinations or delusions. Client Response/Progress/Benefit: [] Pt engaged in session AEB Pt listening attentively to peers and providing input. Attentive during psychoeducation on 4 zones of regulation. Pt able to identify feelings and behaviors for each zone. Pt identified coping skills one can use to support self in each zone. Identified one skill from each zone can practice which included: movement, goal setting, and grounding. Benefited from increased education on zones of regulation or stages of alertness for emotions and healthy coping skills to use for each zone. Will continue IOP tx to challenge distortions, promote use of healthy coping, and prevent decompensation.
--- NOTE | 2023-06-16 09:05 | BH.SGPN.GN ---
Behaviors/Verbalizations/Mental Status: [Patient was alert and oriented, appropriately dressed and groomed. Eye contact was good, motor activity normal, speech within normal limits. Affect congruent, mood sad. Thoughts linear, logical, no signs of hallucinations or delusions. Reviewed Patients symptom tracker and the patient reports depressed mood, anxiety/panic attacks, agitation/irritability/anger, self-harm urges, and thoughts/risk of suicide within normal limits.] Client Response/Progress/Benefit: [Patient was engaged and open to the discussion. Patient reported his mood to be ?sad?. Patients first win is that he went to [place] yesterday hiked with a friend. He stated that it was very beautiful and enjoyed it. Patients second win is that he believes his new medication has improved some aspects in his life. Patient stressor however is that he is having a rough day because of his breakup. Patient was interactive and respectful with other group members about their mental wins and stressors. Patient benefited from the discussion by listening to feedback and giving input on his peer?s stressors and mental health wins. Patient will continue with IOP treatment to help develop healthy skills, promote mood stability, and improve distress tolerance. ] Narrative Note: []
--- NOTE | 2023-06-16 10:10 | BH.SGPN.GN ---
Behaviors/Verbalizations/Mental Status: []Pt alert and oriented, casually dressed and groomed. Eye contact good. Motor activity appropriate. Speech within normal limits. Affect congruent, mood anxious and content. Thoughts linear, logical, no signs of hallucinations or delusions. Client Response/Progress/Benefit: [] Pt active participant AEB pt providing input throughout group discussion. Pt attentive during psychoeducation about defense mechanisms. Showed engagement during small group discussions and helped group identify which defense mechanisms were maladaptive, adaptive, or ?somewhere in the rose.? Pt started to work with group on identifying how each defense mechanism can impact mental health and gave examples. Pt was engaged during small group discussion and expressed connecting with several of the defense mechanisms reviewed. ?Seemed to benefit from gaining awareness about the different defense mechanisms. Pt to continue IOP tx to prevent decompensation, improve daily functioning, and increase mood stability. ? Narrative Note: []
--- NOTE | 2023-06-16 11:10 | BH.SGPN.GN ---
Behaviors/Verbalizations/Mental Status: []Pt alert and oriented, neatly dressed and groomed. Eye contact good. Motor activity appropriate. Speech within normal limits. Affect congruent, mood depressed. Thoughts linear, logical, no signs of hallucinations or delusions. Client Response/Progress/Benefit: [] Pt responded well to session, participating in activity and small group discussion. Group reviewed the rest of the defense mechanisms and discussed how these are adaptive, maladaptive, or somewhere in the rose. Pt participated in the experiential activity which encouraged pts to draw a castle that portrayed their different defense mechanisms. Pt's defense mechanisms included suppression and sublimation. Pt gained awareness that his use of sublimation has helped pt not continue using unhealthy coping skills and suppression leads to avoidance. Pt listened to molder labels teach different skills to help pt?s cope with or change their defense mechanisms. Pt appeared to benefit from gaining insight to the different defense mechanisms and learning coping skills. Pt will continue IOP tx to reinforce healthy coping skills and promote gains. Narrative Note: []
--- NOTE | 2023-06-16 12:21 | PCM.BH.PN ---
Progress Note Progress Note: History of Present Illness/Interim History: The patient is a 27-year-old biological female who identifies as a transgender male with a history of bipolar disorder and anxiety who is seen in follow-up at the [facility] behavioral health [facility]. The patient was last seen 2 weeks ago and states that the Seroquel has improved his sleep and he is tolerating it well. He is more productive during the day and his energy level is improved. He is getting 8 hours of sleep at night and feels rested in the morning. He feels he is learning valuable skills in the IOP and states he is getting more out of it than he expected. His mood is much less depressed. He is still having 1-2 panic attacks a week and he is a little worried about going back to work on June 27 because his coworkers knew his previous partner that he is no longer with and suffered a recent break-up from. The patient however is optimistic that he will be ready to go back to work and that the break-up in the long run was a good thing for him. He denies thoughts of self-harm, passive thoughts of , suicidal ideation, homicidal ideation, hallucinations or delusions. Current Psychiatric Medications: [] Seroquel 50 mg p.o. nightly; Lamictal 100 mg p.o. daily; propranolol 10 mg p.o. daily; lithium carbonate 300 mg p.o. nightly (patient not sure if this is extended release or immediate release); Xanax 0.5 mg as needed for panic attack (taking it about once a week). 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 His tattoos and piercings remain unchanged from initial visit. He is casually dressed and groomed with good hygiene and ambulatory with a normal gait. He has no psychomotor agitation or retardation. He is cooperative and pleasant during the interview. Eye contact is good and speech is normal rate and rhythm and fluent with no pressure. Mood is moderately depressed to mild. Affect is minimally constricted. Thought process is goal-directed and organized. Thought content: The patient is hopeful for the future. There is no evidence of passive thoughts of , thoughts of self-harm, suicidal ideation, homicidal ideation, hallucinations or delusions. Reality testing is intact. Judgment is intact. Insight is good. Impulsivity is low. Diagnoses: [] 1. Bipolar 1 disorder, most recent episode depression, moderate (F31.32) 2. Generalized anxiety disorder 3. Strong cluster B traits 4. History of bulimia nervosa 5. Primary support and work issues Plan: [] The patient will continue the IOP at [facility] as the structure, support, education and group therapy will hopefully prevent worsening of the patient's symptoms which might require hospitalization. He felt safe during the interview and if it anytime he does not feel safe he will let us know or go to the emergency room. The patient agrees to try to increasing his Seroquel to 100 mg p.o. nightly to help see if this decreases his panic attacks and anxiety. If he is too sedated from this the patient will take only 150 mg Seroquel at bedtime. Prescription is sent in for 50 mg of Seroquel; take 2 p.o. nightly. 1 refill given. He will continue to follow-up with his outpatient providers and I will see the patient in follow-up while he is in the IOP program. The patient may be discharged next week if he continues to maintain stability.
--- NOTE | 2023-06-17 08:29 | BH.AFTERPLAN ---
Aftercare Plan Demographics Treatment End Date:: 06/17/23 Psychiatrist:: Kayli Morse Psychiatrist Office #:: [phone] [facility]/IOP Therapist:: Mariana Nails Therapist Phone #:: [phone] Medications Home Medications alprazolam 0.5 mg tablet (Xanax) 0.5 mg PO DAILY PRN Anxiety 06/27/21 propranolol 10 mg tablet 10 mg PO DAILY 04/08/23 lithium carbonate 300 mg capsule 300 mg PO QHS 04/28/23 lamotrigine 100 mg tablet (Lamictal) 100 mg PO DAILY 30 days #30 tabs 05/26/23 quetiapine 50 mg tablet (Seroquel) 100 mg (2 x 50 mg) PO DAILY 30 days #60 tabs 06/16/23 Plan Details Progress/Aftercare Plan Details:: Jai has responded well to treatment as evidenced by Jai consistently attending IOP sessions and his reduction of DSM-5 scores since admission. Jai was always attentive and receptive to learning during group and individual sessions. Jai actively applied coping skills outside of IOP and reports overall his mood is improved and he is functioning better than he was several months ago. Jai?s overall symptom reduction is 49% since admission with anger decreasing by 50%, depression decreasing by 33%, and anxiety decreasing by 60%. Jai has increased self-confidence in his ability to manage stressors, emotions, and his distorted thinking patterns. Most importantly, Jai has gained self-compassion, become more vulnerable, and increased understanding of right to self-advocacy and boundaries. Strategies for Success:: 1. Opposite action! Continue to break that cycle of anxiety, guilt, and depression by not letting emotions be the only drivers of your bus. 2. Remember that thoughts are thoughts NOT facts! You have power in if you give thoughts the time of day or not. 3. self-care! You deserve to take time for you and you also deserve to face the not so fun self-care like setting boundaries and advocating for your needs 4. Self-compassion! You are human and you will make a mistake?BUT that doesn?t mean you are a failure or not good enough. Give yourself credit for all the wonderful things you do. 5. Continue to practice acceptance and remember acceptance means loving this version of you 6. Practice positive self-talk and keep track of your wins. 7. Remember progress isn?t linear! You may have a setback or bump in the road, but that doesn?t mean you?ve lost all progress. 8. self-reflection and self-awareness. 10. Live in the lucas!! Appointments Appointments/Referrals to Other Services:: 1. Follow up with [facility] for individual therapy. First apt is 06/24/23. 2. Follow up with Mumtaz at [facility] the first week of June.
--- NOTE | 2023-06-17 08:45 | BH.DS ---
Discharge Summary Demographics Date of Admission:: 04/27/23 Discharge Date: 06/17/23 Presenting Problems at Admission:: Pt is a 27-year-old transgender male with a history of bipolar disorder and anxiety who was referred following an inpatient psychiatric admission for suicidal ideation with plan to cut his wrists. Pt reports he has been decompensating since mid-February 2023 which was triggered by stressors with his long-distance boyfriend. Pt reports he has been isolating, missing work, and struggling to leave the house in general. Pt currently endorses a depressed mood, lack of motivation, hopelessness, worthlessness, excessive guilt, increased sleep, and loss of appetite. Pt also endorses anxiety with panic attacks, avoidance, rumination, and restlessness. Pt's symptoms are currently impacting his overall functioning and relationships. Discharge Diagnoses:: Bipolar 1 disorder, most recent episode depression, severe without psychosis (F31.4); Generalized anxiety disorder; History of bulimia nervosa Reason for Discharge:: Pt has accomplished his tx goals AEB pt's reduction of DSM-5 scores since admission and his self-report of improved mood and functioning. Pt will continue with outpatient counseling and psychiatry. Treatment Progress During Treatment & Response: Pt has responded well to treatment as evidenced by Pt consistently attending IOP sessions and his reduction of DSM-5 scores since admission. Pt was always attentive and receptive to learning during group and individual sessions. Pt actively applied coping skills outside of IOP and reports overall his mood is improved and he is functioning better than he was several months ago. Pt?s overall symptom reduction is 49% since admission with anger decreasing by 50%, depression decreasing by 33%, and anxiety decreasing by 60%. Pt has increased self-confidence in his ability to manage stressors, emotions, and his distorted thinking patterns. Most importantly, Pt has gained self-compassion, become more vulnerable, and increased understanding of right to self-advocacy and boundaries. Issues Still to be Addressed:: Self-compassion, self-esteem, boundary setting, maintenance of healthy coping skills, thought challenging, and keeping up with healthy habits. Discharge Recommendations/Instructions:: Pt will continue seeing Mumtaz Carlisle at [facility] for medication management. Pt sees Mumtaz the first week of June. Pt also will see Jamila at [facility] for individual therapy. Pt?s first appointment is on 06/24/23. Pt was unable to do IOP aftercare due to work. Discharge Handout
--- NOTE | 2023-06-17 10:10 | BH.SGPN.GN ---
Behaviors/Verbalizations/Mental Status: []Pt alert and oriented, neatly dressed and groomed. Eye contact good. Motor activity appropriate. Speech within normal limits. Affect congruent, mood euthymic and anxious. Thoughts linear, logical, no signs of hallucinations or delusions. Client Response/Progress/Benefit: [] Pt took notes and contributed occasionally. Attentive during psychoeducation on growth mindset. Participated during the activity. Interactive group discussion on growth mindset in which group verbalized their current fixed mindsets and how they affect their mental health. Pt shared common fixed mindset thoughts they have which included I'm never getting better; I?m not good enough; this is too hard?. These thoughts lead to feeling and staying stuck, not letting supports help, and getting defensive with feedback. Pt stated he has personally struggled with the belief that if he is fixed it will protect him from hurt, but now pt sees this is not true. Pt benefited from increased awareness of growth mindset and fixed thoughts and how fixed thoughts impact their mental health. Will discharge from IOP tx as pt has accomplished his tx goals and no longer meets criteria for IOP level of care. Narrative Note: []
--- NOTE | 2023-06-17 11:10 | BH.SGPN.GN ---
Behaviors/Verbalizations/Mental Status: []Pt alert and oriented, casually dressed and groomed. Eye contact good. Motor activity appropriate. Speech within normal limits. Affect congruent, mood content. Thoughts linear, logical, no signs of hallucinations or delusions. Client Response/Progress/Benefit: [] Pt was an active participant during activity and discussion AEB providing some input when prompted, connecting with peers, as well as taking notes throughout. Pt did well to remain attentive and participate as group worked on identifying characteristics and benefits of adopting a growth mindset. Worked with fellow participants in reframing the example fixed thoughts into growth mindset thoughts. Pt worked on changing own fixed thought of Nobody will ever love all of me to a more growth mindset thought of I'm someone and I love me. Maybe I haven't found the right support person, or I do have people who love all of me but don't know how to show it. Receptive of discussing benefits of growth mindset and brainstorming strategies for prompting growth-mindset. Pt appeared to benefit from working in small groups to challenge own thoughts and help peers. Pt will d/c today given progress and continue outpatient tx to maintain mood stability and prevent decompensation. Narrative Note: []
--- NOTE | 2023-06-17 11:26 | BH.MDN ---
Multi-Disciplinary Note Note 30-min Individual: Time Started:: 09:25 Date: 06/17/23 Purpose of session/treatment goals addressed:: To address current stressors and discuss strategies to help cope with these stressors. Another goal was to discuss discharge and aftercare. Eye Contact:: Good Motor Activity:: Appropriate Appearance:: Neat Speech:: Appropriate Mood:: Euthymic Affect:: Congruent Thoughts:: Linear, Logical and No evidence of hallucinations/delusions noted Staff Interventions:: thought challenging, CBT techniques, strengths perspective, reviewed DSM-5 and other (discussed maintenance strategies) Client Response:: Pt responded well to session, open to meeting with therapist. Pt reports he has been feeling a little sad this week about leaving IOP and about his breakup. Pt has been reminding himself that he is allowed to be sad and that he can two things, sad and ready to keep moving forward. Pt shared he continues to be physically and socially active and this has been very helpful. Pt acknowledges his progress and recognizes that in order to maintain, he needs to continue to do physical and social self-care practices. Pt stated one of his goals is to do something social with friends at least once a week when he goes back to work. Pt is overall excited about returning to work which is significantly different than when pt first started IOP. Pt was reminded that when he first started IOP he was extremely anxious about returning to work and he was feeling a lot of inappropriate guilt for being gone from work. Pt is unable to do IOP aftercare because of work, but he is established with [facility] in [place] starting next week. Risks/Concerns:: Pt denies any suicidal ideations or thoughts of . Progress Toward Goals/Plan:: Pt?s overall symptom reduction is 49% since admission with anger decreasing by 50%, depression decreasing by 33%, and anxiety decreasing by 60%. Pt has accomplished his tx goals and no longer meets criteria for IOP level of care. Pt will follow up with outpatient counseling. Time Stopped:: 09:50
== END 2023-06-17 12:04 | disposition home or self-care (01) ==
LOC: BHIOP 06:57
PROVIDERS: PCP Family Medicine; Referring Provider Psychiatry & Neurology Psychiatry; Visit Provider Psychiatry & Neurology Psychiatry
DX: F31.32 Bipolar disorder, current episode depressed, moderate (principal); F41.1 Generalized anxiety disorder; Z79.899 Other long term (current) drug therapy
CPT/HCPCS: S9480; 90832; 90834; 90853

== ENCOUNTER → 2024-02-11 | Outpatient (CLI) | payer OTHER, SELFPAY ==
[2024-02-11 15:34] LABS: Anion Gap 4 (5-15); BUN 11 mg/dL (7-18); BUN/Creat Ratio 13.7 RATIO (10-20); Calcium,Total 9.3 mg/dL (8.5-10.1); Chloride 110 mmol/L (98-107); EST Glomerular Filtration Rate 90 mL/min (>60); Est Glom Filt Rate - Afr Amer 109 mL/min (>60); Glucose 93 mg/dL (74-106); Potassium 3.9 mmol/L (3.5-5.1); Sodium Level 139 mmol/L (136-145); Thyroid Stim Hormone (TSH) 0.826 uIU/mL (0.358-3.740)
== END | disposition home or self-care (01) ==
LOC: LAB 14:31
PROVIDERS: PCP Family Medicine
DX: E55.9 Vitamin D deficiency, unspecified (principal); Z51.81 Encounter for therapeutic drug level monitoring; Z79.899 Other long term (current) drug therapy
CPT/HCPCS: 36415; 80048; 80178; 84443

== ENCOUNTER → 2024-05-05 | Outpatient (CLI) | payer OTHER, SELFPAY ==
[2024-05-05 16:16] LABS: ALB/GLOB Ratio 1.3 RATIO (0.9-2.4); AST(SGOT) 14 U/L (15-37); Alanine Aminotransfer ALT/SGPT 18 U/L (13-56); Albumin, Serum 4.3 g/dL (3.2-5.0); Alkaline Phosphatase 94 U/L (45-117); Anion Gap 10 (5-15); BUN 15 mg/dL (7-18); BUN/Creat Ratio 17.9 RATIO (10-20); Calcium,Total 9.7 mg/dL (8.5-10.1); Chloride 105 mmol/L (98-107); Creatinine, Serum 0.84 mg/dL (0.55-1.02); EST Glomerular Filtration Rate 85 mL/min (>60); Est Glom Filt Rate - Afr Amer 103 mL/min (>60); Globulin 3.3 g/dL (2.2-4.2); Glucose 90 mg/dL (74-106); Potassium 3.8 mmol/L (3.5-5.1); Protein, Total 7.6 g/dL (6.4-8.2); Sodium Level 138 mmol/L (136-145)
[2024-05-05 16:49] LABS: Hepatitis B Surface Antibody Non-Reactive; Hepatitis B Surface Antigen Non-Reactive (Nonreactive); Hepatitis C Antibody Non-Reactive (Nonreactive)
[2024-05-05 17:11] LABS: HIV - WCH Non-Reactive (Nonreactive); Hepatitis B Surface Antigen Non-Reactive (Nonreactive)
[2024-05-06 12:56] LABS: Syphilis Antibodies Non-reactive
== END | disposition home or self-care (01) ==
LOC: LAB 15:00
PROVIDERS: PCP Family Medicine
DX: Z20.6 Contact with and (suspected) exposure to human immunodeficiency virus [HIV] (principal)
CPT/HCPCS: 36415; 80053; 86703; 86706; 86780; 86803; 87340

== ENCOUNTER 2024-08-23 15:40 | Emergency (ER) | payer OTHER, SELFPAY ==
[2024-08-23 15:41] VITALS: BP 128/99; PULSE 121; RESP 16; TEMP 36.6; O2SAT 96; BMI 26.9
--- NOTE | 2024-08-23 16:13 | EX.ED.UPPERE ---
HPI History of Present Illness Chief Complaint: Laceration Informant: patient Narrative Narrative: 28-year-old patient presented to the emergency room with left wrist laceration. Patient states that they have had a history of cutting but most recently began cutting again. They saw their psychiatrist for this and had medications adjusted. They state that today they went to cut again but cut too deeply and not need stitches. No suicidal or homicidal intent. Tetanus is up-to-date. PFSH PFS Medical History History of bulimia nervosa Generalized anxiety disorder Bipolar disorder, current episode depressed, severe, without psychotic features Depression Anxiety Home Medications ?Medication ?Instructions ?Recorded ?Last Taken ?Type alprazolam 0.5 mg tablet (Xanax) 0.5 mg PO DAILY PRN Anxiety 06/27/21 Unknown History propranolol 10 mg tablet 10 mg PO DAILY 04/08/23 Unknown History lithium carbonate 300 mg capsule 300 mg PO QHS 04/28/23 Unknown History lamotrigine 100 mg tablet 100 mg PO DAILY 30 days #30 tabs 05/26/23 Unknown Rx (Lamictal) quetiapine 50 mg tablet (Seroquel) 100 mg (2 x 50 mg) PO DAILY 30 06/16/23 Unknown Rx days #60 tabs Allergy/AdvReac Type Severity Reaction Status Date / Time No Known Allergies Allergy Verified 08/23/24 15:41 Surgical History History of bilateral mastectomy Social History household members: family housing: house Smoking Status: Current every day smoker tobacco type: cigarettes and e-cigarettes ROS ROS ED Constitutional Constitutional ED: Denies chills or weight loss Eyes Eyes: Denies change in vision or diplopia ENT ENT ED: Denies ear pain, rhinorrhea or sore throat Cardiovascular Cardiovascular: Denies chest pain, orthopnea, palpitations or racing heartbeat Respiratory/Chest Respiratory/Chest: Denies cough, dyspnea or orthopnea Gastrointestinal Gastrointestinal: Denies abdominal pain, diarrhea, nausea or vomiting Genitourinary Genitourinary ED: Denies dysuria, hematuria or urinary frequency Musculoskeletal Musculoskeletal: Denies arthralgias or myalgias Integumentary Reports other Details: Laceration ; Denies abscess or rash Neurologic Neurologic: Denies headache(s) or weakness Psychiatric Psychiatric: Denies anxiety, depression, suicidal ideation or suicidal thoughts Endocrine Endocrinology: Denies polydipsia, polyphagia or polyuria Allergic/Immunologic Allergic/Immunologic ED: Denies mouth swelling, tongue swelling or urticaria EXAM Physical Exam Const Vital Signs: 08/23/24 15:41 Temperature 97.8 F Temperature Source Temporal Pulse Rate 121 H Respiratory Rate 16 Blood Pressure 128/99 H Blood Pressure Mean 108 Pulse Ox 96 Oxygen Delivery Method Room Air Positive well nourished and well developed General Appearance ED: well developed HEENT Reports normocephalic, head/scalp atraumatic and moist mucous membranes Eyes PERRL and EOMs intact bilaterally Neck no lymphadenopathy, supple and no JVD Resp normal respiratory effort and clear to auscultation bilaterally Cardio regular rate, regular rhythm and no murmurs GI normal to inspection, nondistended, normoactive bowel sounds and non-tender Palpation: soft Back/Spine no CVA tenderness and normal ROM Extremity normal to inspection General Extremety ED: Negative for edema General Extremity: Negative for edema Neuro oriented x3 and CN's II-XII intact bilaterally Sensorium / Orientation: alert Motor Exam: strength 5/5 throughout Psych mental status grossly normal Psych Narrative: No suicidal or homicidal intent Attitude: No agitated Mood & Affect: Negative for depressed, anxious or tearful Skin no rashes or lesions noted Skin Narrative: There is a 4 cm linear laceration over the volar surface of the left wrist. Bleeding is controlled. No neurovascular changes distally. Tendon function appears normal. Wound appears clean. There are well-healed prior linear cuts on the left wrist and forearm. MDM MDM MDM Narrative Medical decision making narrative: Differential diagnosis includes but not limited to neurovascular injury tendon injury laceration to skin suicidal homicidal ideation depression Patient presents with no suicidal or homicidal intent. He presents with prior and current cutting behavior which she is seeing psychiatry for. Wound was locally anesthetized using 1% lidocaine. Washed with Shur-Clens and explored. No foreign bodies were seen no obvious neurovascular or tendon injury seen. Wound was closed using 4-0 Ethilon simple interrupted sutures. Wound was dressed with bacitracin Telfa pad and Rachel. Wound care discussed with patient stitches will need to be removed 7 to 10 days. Return if worsening or concerns. History & Record Review Discussion w/independent historian: Patient Discharge Plan Triage Chief Complaint: Laceration ED Provider: Cesario Levy Dx/Rx/DC Orders Clinical Impression: Laceration of left wrist Instructions: ED Laceration, All Closures Prescriptions: No Action alprazolam [Xanax] 0.5 mg Tablet 0.5 mg PO DAILY PRN (Reason: Anxiety) propranolol 10 mg tablet 10 mg PO DAILY lithium carbonate 300 mg capsule 300 mg PO QHS lamotrigine [Lamictal] 100 mg tablet 100 mg PO DAILY 30 Days Qty: 30 1RF quetiapine [Seroquel] 50 mg tablet 100 mg PO DAILY 30 Days Qty: 60 1RF Primary Care Provider: Jean Desai Referrals: Jean Desai MD [Primary Care Provider] - 10 Day for suture removal Print Language: [place] Disposition Disposition: Home, Self Care
[2024-08-23 16:19] VITALS: BP 128/99; PULSE 121; RESP 16; TEMP 36.6; O2SAT 96
[2024-08-23] MEDS: Lidocaine 1% (20 ml mdv) 20 ML Vial INFILT (16:19)
== END 2024-08-23 16:25 | disposition home or self-care (01) ==
LOC: ED 16:22
PROVIDERS: Emergency Provider Emergency Medicine; PCP Family Medicine; Visit Provider Emergency Medicine
DX: S61.512A Laceration without foreign body of left wrist, initial encounter (principal); F31.9 Bipolar disorder, unspecified; X78.9XXA Intentional self-harm by unspecified sharp object, initial encounter; F17.210 Nicotine dependence, cigarettes, uncomplicated; F41.1 Generalized anxiety disorder; Z79.899 Other long term (current) drug therapy; Z90.13 Acquired absence of bilateral breasts and nipples; F17.290 Nicotine dependence, other tobacco product, uncomplicated
CPT/HCPCS: 12002; 99283

== ENCOUNTER → 2024-10-20 | Outpatient (CLI) | payer OTHER, SELFPAY ==
[2024-10-20 14:36] LABS: AST(SGOT) 23 U/L (<=31); Alanine Aminotransfer ALT/SGPT 18 U/L (<=34); Albumin, Serum 4.6 g/dL (3.5-5.0); Alkaline Phosphatase 102 U/L (35-104); Anion Gap 15 (5-15); BUN 11 mg/dL (4-19); BUN/Creat Ratio 13.5 RATIO (10-20); Calcium,Total 9.7 mg/dL (7.6-11.0); Carbon Dioxide 18.0 mmol/L (21.0-32.0); Chloride 105 mmol/L (98-108); Globulin 2.9 g/dL (2.2-4.2); Glucose 95 mg/dL (70-99); Potassium 3.8 mmol/L (3.3-5.1); Syphilis Antibodies Nonreactive (Nonreactive)
== END | disposition home or self-care (01) ==
LOC: LAB 13:22
PROVIDERS: PCP Family Medicine
DX: Z20.6 Contact with and (suspected) exposure to human immunodeficiency virus [HIV] (principal); Z79.899 Other long term (current) drug therapy
CPT/HCPCS: 36415; 80053; 86780